=== PATIENT | male | born 1970 | race Caucasian/White ===

== ENCOUNTER 2018-08-20 08:15 | Outpatient (CLI) | payer OTHER, SELFPAY ==
[2018-08-20 11:19] LABS: HGB 14.8 g/dL (13.5-17.5); Mean Corp. HGB Concentration 32.9 g/dL (32.0-36.0); Mean Corpuscular Hemoglobin 31.6 pg (27.0-33.0); Mean Corpuscular Volume 96.2 fL (80-95); Mean Platelet Volume 11.2 fL (8.0-11.0); Platelet Count 171 x1000/uL (130-400); RBC 4.68 m/cumm (4.50-6.00); RBC Distribution Width 13.7 % (11.8-14.1); White Blood Cell Count 6.16 k/cumm (4.4-10.8)
[2018-08-20 11:35] LABS: ALT 75 U/L (12-78); AST 44 U/L (15-37); Albumin 3.8 g/dL (3.4-5.0); Alkaline Phosphatase 57 U/L (46-116); Anion Gap 8.6 mmol/L (3-11); BUN 13 mg/dL (7-18); Bilirubin, Total 0.8 mg/dL (0.2-1.0); CO2 28.4 mmol/L (21.0-32.0); CREATININE 1.07 mg/dL (0.70-1.30); Calcium 8.9 mg/dL (8.5-10.1); Chloride 103 mmol/L (98-107); Cholesterol 188 mg/dL (50-200); Glucose 116 mg/dL (70-100); HDL Cholesterol 47 mg/dL (40-60); LDL CHOLESTEROL 130 mg/dL (<100); Potassium 4.6 mmol/L (3.5-5.1); Sodium 140 mmol/L (136-145); Total Protein 7.3 g/dL (6.4-8.2); Triglyceride 123 mg/dL (30-150)
== END 2018-08-20 08:35 ==
PROVIDERS: PCP Family Medicine; Visit Provider Family Medicine
DX: I10 Essential (primary) hypertension (principal); E78.5 Hyperlipidemia, unspecified; Z83.3 Family history of diabetes mellitus
CPT/HCPCS: 36415; 80053; 80061; 83721; 85027; 83036

== ENCOUNTER 2018-12-03 11:05 | Outpatient (CLI) | payer OTHER, SELFPAY ==
--- NOTE | 2018-12-03 10:08 | DI.RAD_ITS ---
SYMPTOM/DIAGNOSIS: PAIN, CHRONIC LT HIP PAIN M25.552 LEFT HIP: 12/03/18 Three views were obtained. There appears to be mild loss of cartilaginous joint space of the left hip superiorly. Moderate hypertrophic spurring of both acetabula noted. Femoral heads appear intact. CONCLUSION: Hip DJD, left greater than right.
== END 2018-12-03 11:25 ==
PROVIDERS: PCP Family Medicine; Visit Provider Family Medicine
DX: M25.552 Pain in left hip (principal); M16.12 Unilateral primary osteoarthritis, left hip; G89.29 Other chronic pain
CPT/HCPCS: 73502

== ENCOUNTER 2019-03-04 09:41 | Outpatient (CLI) | payer OTHER, SELFPAY ==
[2019-03-04 11:04] LABS: Abs Immature Grans 0.03 k/cumm (0.0-0.09); Absolute Basophil Count 0.04 k/cumm (0.0-0.2); Absolute Eosinophil Count 0.19 k/cumm (0.0-0.7); Absolute Lymphocyte Count 1.48 k/cumm (1.2-3.4); Absolute Monocyte Count 0.48 k/cumm (0.11-0.7); Absolute Neutrophil Count 4.15 k/cumm (1.2-6.7); Basophils % 0.6; HCT 45.8 % (40.0-50.0); Immature Grans % 0.5; Lymphocytes % 23.2; Mean Corp. HGB Concentration 32.8 g/dL (32.0-36.0); Mean Corpuscular Hemoglobin 31.1 pg (27.0-33.0); Mean Platelet Volume 11.5 fL (8.0-11.0); Monocytes % 7.5; Neutrophils % 65.2; Platelet Count 167 x1000/uL (130-400); RBC 4.82 m/cumm (4.50-6.00); RBC Distribution Width 14.3 % (11.8-14.1); White Blood Cell Count 6.37 k/cumm (4.4-10.8)
[2019-03-04 11:18] LABS: ALT 86 U/L (12-78); AST 48 U/L (15-37); Albumin 3.7 g/dL (3.4-5.0); Alkaline Phosphatase 69 U/L (46-116); Anion Gap 11.8 mmol/L (3-11); BUN 13 mg/dL (7-18); Bilirubin, Total 0.8 mg/dL (0.2-1.0); CO2 24.2 mmol/L (21.0-32.0); Calcium 8.9 mg/dL (8.5-10.1); Chloride 105 mmol/L (98-107); Glucose 120 mg/dL (70-100); Potassium 4.3 mmol/L (3.5-5.1); Sodium 141 mmol/L (136-145); Total Protein 7.3 g/dL (6.4-8.2)
[2019-03-08 19:03] LABS: EBV DNA Detect/Quant, P Undetected IU/mL (Undetected)
== END 2019-03-04 10:01 ==
PROVIDERS: PCP Family Medicine; Visit Provider Nurse Practitioner Family
DX: R53.83 Other fatigue (principal); Z20.828 Contact with and (suspected) exposure to other viral communicable diseases
CPT/HCPCS: 36415; 80053; 87799; 85025

== ENCOUNTER 2019-06-15 17:34 | Emergency (ER) | payer OTHER, SELFPAY ==
[2019-06-15] VITALS (60 sets, daily range): BP systolic 93–169; BP diastolic 49–139; PULSE 72–96; RESP 11–31; TEMP 36.7; O2SAT 93–97
--- NOTE | 2019-06-15 17:56 | ED.GENADUL_ITS ---
Discharge Plan Disposition Patient Disposition: [facility] Condition: Stable Discharge Details Chief Complaint: Chest Pain Clinical Impression: Non-ST elevation MO (NSTEMI) Primary Care Provider: Carlos Victoria ED Provider: Kedar Mueller Home Meds and New Rx's Prescriptions: No Action omega-3 fatty acids [Fish Oil Concentrate] 1,000 mg capsule 1,000 mg PO DAILY RF: 0 hydrochlorothiazide 25 mg tablet 12.5 mg PO DAILY Qty: 45 RF: 3 nystatin 15 GM cream 1 gm Topical DAILY PRNQty: 1 RF: 1 pantoprazole 20 MG tablet,delayed release (DR/EC) 40 mg PO DAILY Qty: 180 RF: 3 fluticasone propionate 16 GM spray,suspension 50 mcg NS DAILY Qty: 3 RF: 4 metronidazole [Metrogel] 60 GM gel 1 [place] Topical DAILY Qty: 3 RF: 4 valsartan 160 mg tablet 160 mg PO DAILY Qty: 90 RF: 3 multivitamin 1 EACH capsule 1 tab PO DAILY RF: 0 Discharge Data Discharge Date/Time-TO BE ENTERED AT DEPARTURE: 06/16/19 13:17 Medical Decision Making <Kedar Mueller MD - Last Filed: 06/16/19 11:53> 48 yo male with hx of hld, htn, former smoker comes in with left sided chest pain in mid chest in mid clavicular line. He states it started yesterday afternoon and comes and goes and has no pain now. He states it hurts more with deep breaths and also with exertion, no radiation of pain, no diaphoresis or n/v. No prior cardiac hx. He has pain with palpation to the left anterior chest, no rashes or crepitus. Clear lungs on exam. Could be pleurisy, wells score is low will send dimer. EKG shows lbbb, no sgarbossa criteria for stemi and is pain free now. Will send troponin given his risk factors and monitor pt remains hd stable, labs show troponin of 0.24 and d dimer is above 0.5, asa and plavix as well as heparin ordered for likely nstemi and will obtian cta to eval for pe, will hold on cardiology consult until PE study is finalized pt will be signed out to oncoming provider pending cTA and disposition Differential Diagnosis pleurisy, pe, dissection, acs Imaging Data Radiologic Study: Attestation: I personally reviewed and interpreted this imaging study as follows: Imaging: X-Ray Radiologist's impression: IMPRESSION: There is mild bibasilar linear fibrosis/atelectasis. Slight elevation of the right hemidiaphragm Lab Data Lab results reviewed: Yes I reviewed the patient's lab results. ECG Data Attestation: I personally reviewed and interpreted this ECG (s) as follows: Prior ECG tracings: not available for review Interpretation: sinus rhythm, rate of 80, pr 172, lbbb <Brad Chaudhry MD - Last Filed: 06/16/19 19:59> 23:20 - Patient signed over to me pending CT result and then to arrange for transfer. Patient CTA of the chest is negative for PE or dissection. This scan was carried down through the abdomen. There was some findings of a little bit of peripancreatic stranding. Patient denies having any type of abdominal pain, nausea or vomiting. He is also found to have abdominal wall hernias. These are currently not causing any problems. A repeat EKG and troponin were done. EKG continues to show left bundle branch block. Second troponin came back at 0.26 essentially unchanged. Case is discussed with cardiology at both [facility] and at [facility]. Both facilities are unable to take non-emergency patients. Patient is accepted to both facilities pending discharge. Patient will go to whichever facility has a bed become available first. He has had a couple of episodes of short-lived chest pain here that resolved even prior to getting nitroglycerin. He has remained hemodynamically stable. He continues on a heparin drip. PTT to be checked at 1 AM. We will get troponin at that time as well. Patient will be allowed to eat until breakfast. Will make n.p.o. after breakfast in case cardiology decides to cath once he is transferred. Patient will remain in the ED overnight as there are no beds here. 08:30 -patient without any events overnight. Repeat troponin this morning remains flat. Heparin continues and is adjusted according to protocol. Patient signed over to Dr. Mueller pending callback from either [facility] or [facility]. Lab Data Lab results reviewed: Yes I reviewed the patient's lab results. ECG Data Attestation: I personally reviewed and interpreted this ECG (s) as follows: Interpretation: Sinus rhythm at a rate of 87. Continues with left bundle branch block. No change from previous done earlier today. HPI <Kedar Mueller MD - Last Filed: 06/16/19 11:53> General Mode of arrival: ambulatory . Date/Time Provider Initiated Documentation: 06/15/19 17:38 . Limitations to Documentation: no limitations . Information obtained by: patient . History of Present Illness 48 year old M presents to the emergency department with the chief complaint of chest pain, described as mild, Quality is described as stabbing, and is localized to the chest. Patient reports no radiation. Patient started experiencing this day(s) (1) and it has been intermittent. No relieving factors improve symptom(s), No exacerbating factors reported . Patient did receive the following treatments prior to arrival, none Related Data Home Medications Medication Instructions Recorded Confirmed nystatin 1 gm TOPICAL DAILY PRN #1 tube 01/10/15 06/15/19 multivitamin 1 tab PO DAILY 04/12/18 06/15/19 fluticasone propionate 50 mcg NS DAILY #3 bottle 06/01/18 06/15/19 metronidazole [Metrogel 1%] 1 [place] TOPICAL DAILY #3 script 06/01/18 06/15/19 pantoprazole 40 mg PO DAILY #180 tab-cap 06/01/18 06/15/19 omega-3 fatty acids 1,000 mg 1,000 mg PO DAILY 10/19/18 06/15/19 capsule valsartan 160 mg tablet 160 mg PO DAILY #90 tab 12/27/18 06/15/19 hydrochlorothiazide 25 mg tablet 12.5 mg PO DAILY #45 tab 04/27/19 06/15/19 Previous Rx's Medication Instructions Recorded fluticasone propionate 50 mcg NS DAILY #3 bottle 06/01/18 metronidazole [Metrogel 1%] 1 [place] TOPICAL DAILY #3 script 06/01/18 pantoprazole 40 mg PO DAILY #180 tab-cap 06/01/18 valsartan 160 mg tablet 160 mg PO DAILY #90 tab 12/27/18 hydrochlorothiazide 25 mg tablet 12.5 mg PO DAILY #45 tab 04/27/19 Allergies Allergy/AdvReac Type Severity Reaction Status Date / Time lisinopril AdvReac Mild cough Verified 06/15/19 18:12 General Stated Complaint: Chest Pain MARCO ANTONIO: 2 Review of Systems <Kedar Mueller MD - Last Filed: 06/16/19 11:53> Review of Systems All systems reviewed & are unremarkable except as noted in HPI and below Constitutional Denies chills, Denies fever(s) and Denies weakness Cardiovascular Denies dyspnea Respiratory Denies dyspnea Gastrointestinal Denies abdominal pain, Denies nausea and Denies vomiting Neurologic Denies weakness PFSH <Kedar Mueller MD - Last Filed: 06/16/19 11:53> Medical History (Updated 05/20/19 @ 15:28 by Melissa Peña) Depression (emotion) GERD (gastroesophageal reflux disease) Hiatal hernia Hypertension Obesity, Class III, BMI 40-49.9 (morbid obesity) Surgical History (Updated 04/27/19 @ 12:59 by Hank Moeller) Colonoscopy - MAC (04/12/18) HERNIA REPAIR Tonsillectomy (~1999) Family History Mother No problems noted. Father Diabetes Essential hypertension Stroke Maternal Grandfather Heart disease Alcohol abuse Paternal Grandfather Alcohol abuse Heart disease Maternal Grandmother Diabetes Heart disease Paternal Grandmother Diabetes Essential hypertension Heart disease Brother Anxiety Daughter Anxiety Social History (Updated 09/21/18 @ 11:11 by Ariadna Luu) Smoking/Tobacco Use Status: Former Tobacco Use Quit Date: 11/02/04 Second Hand Exposure: Yes Alcohol Intake: current Alcohol Intake frequency: 0-2 drinks per day Alcohol type: hard liquor Drug use: Never Substance use type: former substance user and marijuana Household members: other Details: 5 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 Pets and animals: Yes Pets and animals: cat(s) What type of physical activity do you participate in: none Frequency: does not exercise Silke/Moravian: Baptist Special silke needs: No Do you feel safe at home: Yes Do you feel safe in your relationship?: Yes Exam <Kedar Mueller MD - Last Filed: 06/16/19 11:53> Const General: no acute distress Orientation: alert HENMT Head: normal to inspection Ears: external ears normal General nose exam: external nose normal Mouth: moist mucous membranes Eyes General: appearance normal, both eyes and all related structures Neck Neck: normal visual inspection Resp Effort & Inspection: normal respiratory effort and able to speak in complete sentences Cardio Rate: regular rate Skin General skin exam: no rashes or lesions noted Neuro General: alert and oriented x3 Extrem General: normal to inspection Psych Mental Status: mental status grossly normal Course <Kedar Mueller MD - Last Filed: 06/16/19 11:53> Vital Signs Temperature 36.7 C 06/15/19 17:41 Pulse 85 06/15/19 17:41 Respiratory Rate 16 06/15/19 17:41 Blood Pressure 144/83 H 06/15/19 17:41 Pulse Oximetry 96 06/15/19 17:41 Temperature 36.7 C 06/15/19 17:41 Temperature Source Skin 06/15/19 17:41 Pulse 85 06/15/19 17:41 Respiratory Rate 16 06/15/19 17:41 Blood Pressure 144/83 H 06/15/19 17:41 Pulse Oximetry 96 06/15/19 17:41 Oxygen Delivery Method Room Air 06/15/19 17:41 Oxygen Flow Rate 0 06/15/19 17:41 Pain Level 0 06/15/19 17:41 Sign Out <Kedar Mueller MD - Last Filed: 06/16/19 11:53> Sign Out Data: Sign Out Comment: follow up on cta results, disposition Last updated by Kedar Mueller MD at 06/15/19 19:44 Sign Out Comment: pending call back from [facility] or [facility] for transfer Last updated by Brda Chaudhry MD at 06/16/19 08:29
[2019-06-15] MEDS: Normal Saline Flush 10 ML SYR IVP ×2 (18:05→19:59)
[2019-06-15 18:15] LABS: Abs Immature Grans 0.02 k/cumm (0.0-0.09); Absolute Basophil Count 0.03 k/cumm (0.0-0.2); Absolute Eosinophil Count 0.18 k/cumm (0.0-0.7); Absolute Lymphocyte Count 1.65 k/cumm (1.2-3.4); Absolute Monocyte Count 0.55 k/cumm (0.11-0.7); Absolute Neutrophil Count 4.61 k/cumm (1.2-6.7); Basophils % 0.4; Eosinophils % 2.6; HCT 42.2 % (40.0-50.0); HGB 13.9 g/dL (13.5-17.5); Immature Grans % 0.3; Lymphocytes % 23.4; Mean Corp. HGB Concentration 32.9 g/dL (32.0-36.0); Mean Corpuscular Hemoglobin 31.4 pg (27.0-33.0); Mean Corpuscular Volume 95.3 fL (80-95); Mean Platelet Volume 11.1 fL (8.0-11.0); Monocytes % 7.8; Neutrophils % 65.5; Platelet Count 173 x1000/uL (130-400); RBC 4.43 m/cumm (4.50-6.00); RBC Distribution Width 14.1 % (11.8-14.1); White Blood Cell Count 7.04 k/cumm (4.4-10.8)
--- NOTE | 2019-06-15 18:19 | DI.RAD_ITS ---
SYMPTOM/DIAGNOSIS: CHEST PAIN, ELEVATED D DIMER PA AND LATERAL CHEST: 06/15 The heart is not enlarged. There are minimal linear radiodensities in the lung base less prominent than on previous examination of 2008. No acute consolidation or pleural effusion. Cardiac size is within normal limits. CONCLUSION: Negative examination of the chest.
[2019-06-15 18:31] LABS: PTT Activated 22.4 sec (21.0-31.4); Prothrombin Time 10.1 sec (9.3-11.0)
--- NOTE | 2019-06-15 18:34 | DI.VRAD_ITS ---
EXAM: XR Chest, 2 Views EXAM DATE/TIME: 06/15/2019 5:58 PM CLINICAL HISTORY: 48 years old, male; Chest pain TECHNIQUE: Imaging protocol: XR of the chest, 2 views. COMPARISON: No relevant prior studies available. FINDINGS: Lungs: There is mild bibasilar linear fibrosis/atelectasis. Pleural space: Unremarkable. No pleural effusion. No pneumothorax. Heart/Mediastinum: Unremarkable. No cardiomegaly. Diaphragm: Slight elevation of the right hemidiaphragm Bones/joints: Unremarkable. IMPRESSION: There is mild bibasilar linear fibrosis/atelectasis. Slight elevation of the right hemidiaphragm Dictated and Authenticated by: Davian Bingham MD. Ordering:OSWALDO Thacker MD
[2019-06-15 18:37] LABS: ALT 66 U/L (12-78); AST 37 U/L (15-37); Albumin 3.5 g/dL (3.4-5.0); Alkaline Phosphatase 68 U/L (46-116); Anion Gap 11.5 mmol/L (3-11); BUN 15 mg/dL (7-18); Bilirubin, Total 0.6 mg/dL (0.2-1.0); CO2 25.5 mmol/L (21.0-32.0); CREATININE 1.16 mg/dL (0.70-1.30); Calcium 8.5 mg/dL (8.5-10.1); Chloride 104 mmol/L (98-107); Glucose 158 mg/dL (70-100); Magnesium 1.7 mg/dL (1.8-2.4); NT-proBNP 91 pg/mL; Potassium 3.7 mmol/L (3.5-5.1); Sodium 141 mmol/L (136-145); Total Protein 7.3 g/dL (6.4-8.2)
[2019-06-15 18:39] LABS: Troponin I 0.24 ng/mL (0.00-0.06)
[2019-06-15] MEDS: Clopidogrel 300 MG TAB PO (18:50)
[2019-06-15] MEDS: Aspirin 81 MG CHEW 324 MG CH (18:50)
[2019-06-15 18:52] LABS: D-Dimer 568 ng/mlFEU (<500)
--- NOTE | 2019-06-15 19:56 | DI.CT_ITS ---
SYMPTOM/DIAGNOSIS: CHEST PAIN, ELEVATED D.DIMER CT ANGIOGRAPHY CHEST AND ABDOMINAL AND PELVIC CT 06/15 CT angiography was performed with multi slice acquisition and multi planar and 3D reconstruction. CT examination of the chest was performed with a bolus infusion of 100 cc Omnipaque 350 followed by venous phase imaging of the abdomen and pelvis. The lungs are clear with minimal linear scarring in the lung bases. Tracheobronchial tree appears intact. No evidence of pulmonary embolic disease. No thoracic aortic aneurysm or dissection. No mediastinal or hilar adenopathy. Note is made of hepatic steatosis and mild hepatomegaly with no focal hepatic lesion identified. Gallbladder and bile ducts are CT normal. Spleen appears normal. Pancreas appears intact. Adrenals and kidneys are unremarkable. No evidence of urinary tract calcification or obstruction. Abdominal aorta is of normal diameter and no major vascular abnormality seen. No abdominal or pelvic adenopathy. Appendix is normal. No evidence of diverticulitis or bowel obstruction. There is a small fat containing umbilical hernia. There is a ventral hernia just superior to the umbilicus with omental fat contents measuring up to about 3.8 cm in diameter. There is mild increased fat attenuation associated with the omental fat raising the possibility of inflammation. Correlation requested regarding any symptoms referable to this site. CONCLUSION: 1. Hepatic steatosis and hepatomegaly, question mild splenomegaly 2. Ventral hernia superior to the umbilicus with omental fat contents which show increased fat attenuation, please correlate clinically regarding any possibility of inflammation at this site.
[2019-06-15] MEDS: Omnipaque 350 MG/ML 50 ML BTL IJ (19:58)
[2019-06-15] MEDS: Omnipaque 350 MG/ML 100 ML BTL IJ (19:58)
--- NOTE | 2019-06-15 20:58 | DI.VRAD_ITS ---
EXAM: CT Angiography Chest With Contrast EXAM DATE/TIME: 06/15/2019 6:54 PM CLINICAL HISTORY: 48 years old, male; Chest pain; Other: Elevated d-dimer TECHNIQUE: Imaging protocol: Axial computed tomographic angiography images of the chest with intravenous contrast using CT angiography protocol. Coronal and sagittal reformatted images were created and reviewed. 3D rendering: MIP reconstructed images were created and reviewed. Contrast material: OMNIPAQUE 350;Contrast volume: 125 ml;Contrast route: IV LAC; COMPARISON: CR XR CHEST 2V PA LATERAL 06/15/2019 6:18 PM FINDINGS: Pulmonary arteries: There are no intraluminal filling defects to suggest acute pulmonary embolus. Aorta: Aorta demonstrates mild atherosclerotic calcification. Lungs: There is mild bibasilar atelectasis. Pleural space: Unremarkable. No pneumothorax. No pleural effusion. Heart: Unremarkable. No cardiomegaly. No pericardial effusion. Mediastinum: There is a small hiatal hernia. Lymph nodes: Unremarkable. No enlarged lymph nodes. Bones/joints: Unremarkable. No acute fracture. Soft tissues: Unremarkable. IMPRESSION: There are no intraluminal filling defects to suggest acute pulmonary embolus. EXAM: CT Angiography Abdomen With Contrast EXAM DATE/TIME: 06/15/2019 6:54 PM CLINICAL HISTORY: 48 years old, male; Chest pain; Other: Elevated d-dimer TECHNIQUE: Imaging protocol: Axial computed tomographic angiography images of the abdomen with intravenous contrast material. Coronal and sagittal reformatted images were created and reviewed. 3D rendering: MIP reconstructed images were created and reviewed. Contrast material: OMNIPAQUE 350;Contrast volume: 125 ml;Contrast route: IV LAC; COMPARISON: CR XR CHEST 2V PA LATERAL 06/15/2019 6:18 PM FINDINGS: VASCULATURE: The abdomen was scanned in venous phase limiting evaluation. Aorta: Atherosclerotic calcifications of the aorta and iliac arteries without evidence of aneurysm. Celiac trunk and mesenteric arteries: No occlusion or significant stenosis. Renal arteries: No occlusion or significant stenosis. ABDOMEN: Liver: The liver is enlarged. There is a diffuse decrease in hepatic parenchymal density, consistent with fatty infiltration. Gallbladder and bile ducts: The gallbladder is unremarkable. Pancreas: Mild haziness of the peripancreatic mesenteric fat surrounding the head and uncinate process of the pancreas. Spleen: Mild splenomegaly. Adrenals: No adrenal mass is present. Kidneys and ureters: The kidneys excrete contrast normally without evidence of solid renal mass or hydronephrosis. Stomach and bowel: There is scattered colonic diverticulosis without evidence of diverticulitis. Intraperitoneal space: Unremarkable. No free air. No significant fluid collection. Bones/joints: Unremarkable. No acute fracture. No dislocation. Soft tissues: There is small fat-containing left inguinal hernia. There is a small fat-containing umbilical hernia. Just superior to this is an anterior abdominal wall hernia measuring 3.8 x 3.3 cm. This is omental fat within the left there is a thickened wall present with some mild haziness of the adjacent anterior abdominal wall fat. Lymph nodes: Unremarkable. No enlarged lymph nodes. IMPRESSION: 1. Small 3.8 x 3 point centimeter central anterior abdominal wall hernia just superior to a small fat-containing umbilical hernia. The hernia sac contains omental fat and has a thickened wall with juliano-hernia subcutaneous haziness that may represent a mild inflammatory component. Please correlate with patient's clinical exam. 2. Significant fatty changes in the liver with hepatomegaly. Please correlate with the patient's clinical laboratory findings. 3. Mild splenomegaly. 4. Mild peripancreatic haziness of the fat about the head and uncinate process of the pancreas that can be seen with pancreatitis. Recommend correlation with laboratory findings. Dictated and Authenticated by: Davian Bingham MD. Ordering:OSWALDO Thacker MD
[2019-06-15 21:45] LABS: Troponin I 0.26 ng/mL (0.00-0.06)
[2019-06-16] VITALS (98 sets, daily range): BP systolic 105–146; BP diastolic 50–117; PULSE 46–90; RESP 12–30; TEMP 36.7; O2SAT 86–96
[2019-06-16 01:30] LABS: PTT Activated 24.9 sec (21.0-31.4)
[2019-06-16 01:38] LABS: Troponin I 0.24 ng/mL (0.00-0.06)
[2019-06-16 07:11] LABS: HCT 41.6 % (40.0-50.0); HGB 13.7 g/dL (13.5-17.5); Mean Corp. HGB Concentration 32.9 g/dL (32.0-36.0); Mean Corpuscular Hemoglobin 31.7 pg (27.0-33.0); Mean Corpuscular Volume 96.3 fL (80-95); Platelet Count 140 x1000/uL (130-400); RBC 4.32 m/cumm (4.50-6.00); RBC Distribution Width 14.2 % (11.8-14.1); White Blood Cell Count 5.64 k/cumm (4.4-10.8)
[2019-06-16 07:26] LABS: PTT Activated 34.1 sec (21.0-31.4)
[2019-06-16 07:34] LABS: Troponin I 0.27 ng/mL (0.00-0.06)
[2019-06-16] MEDS: Valsartan 80 MG TAB 160 MG PO (09:00)
[2019-06-16] MEDS: hydroCHLOROthiazide 12.5 MG TAB PO (09:01)
[2019-06-16 12:39] LABS: PTT Activated 37.5 sec (21.0-31.4)
== END 2019-06-16 13:17 | disposition short-term general hospital (02) ==
PROVIDERS: Emergency Medicine; Emergency Provider Emergency Medicine; PCP Family Medicine
DX: I21.4 Non-ST elevation (NSTEMI) myocardial infarction (principal); R79.1 Abnormal coagulation profile; I10 Essential (primary) hypertension; Z87.891 Personal history of nicotine dependence; Z75.1 Person awaiting admission to adequate facility elsewhere
CPT/HCPCS: 36415; 71275; 74177; 80053; 85027; 93005; 96365; 96366; 99285; 71046; 83735; 83880; 84484; 85025; 85379; 85610; 85730; 93010; J3490; Q9967

== ENCOUNTER 2019-07-14 00:52 | Outpatient (CLI) | payer OTHER, SELFPAY ==
--- NOTE | 2019-07-14 07:36 | DI.RAD_ITS ---
SYMPTOMS/DIAGNOSIS: LEFT HIP IMPINGEMENT SYNDROME LEFT HIP INJECTION: Fluoroscopy Time: 20.6 sec Fluoroscopy was utilized by Dr. aRy during left hip injection. Hard copy shows intraarticular injection of the left hip.
--- NOTE | 2019-07-14 13:30 | W.PROCNOTE ---
Date of service: 07/14/19 Time of Service: 13:30 Procedure Note Date of procedure: 07/14/19 Procedure: Left Hip Injection with Fluoroscopic Guidance Surgeon/Proceduralist/Physician: Joselo Ray Procedure Diagnosis: Left Hip Osteoarthritis Procedure Indications: Benjy has had persistent pain of the LEFT hip and groin. Noninvasive measures have been tried. To serve as both diagnostic and therapeutic, an injection under fluoroscopy was recommended. I had discussed the risks of the procedure and the patient elected to proceed. Procedure Description: Benjy was greeted in the flouroscopy room. The correct side was identified and the consent was reviewed with the patient and signed. The patient was then placed in the supine position on the fluoroscopy table. The LEFT hip was then prepped with Chloraprep. The anterolateral injection starting point was identiifed by bony landmarks and fluoroscopy. The skin and soft tissue in the tract of the injection was anesthetized with 1% Lidocaine. A spinal needle was then inserted deep into the hip joint at the level of the lateral femoral neck under fluoroscopic guidance. A small amount of Omnipaque solution was injected to confirm intraarticular placement. Once confirmed, the hip was injected with 6cc of 0.5% Bupivicaine and 80mg of Depo-Medrol. A bandaid was placed on the injection site. The patient tolerated the procedure well and noted improvement in pre-injection pain.
[2019-07-14] MEDS: Bupivacaine 0.5% Pres-Free 10 ML VIAL 50 ML IJ (15:05)
[2019-07-14] MEDS: methylPREDNISolone ACETATE 80 MG/ML VIAL IM (15:07)
[2019-07-14] MEDS: Lidocaine 1% Pres-Free 5 ML VIAL IJ (15:09)
== END 2019-07-14 01:12 ==
PROVIDERS: PCP Family Medicine; Visit Provider Student in an Organized Health Care Education/Training Program
DX: M25.852 Other specified joint disorders, left hip (principal); M25.552 Pain in left hip
CPT/HCPCS: 20610; 77002; J1040

== ENCOUNTER 2019-07-26 12:52 | Outpatient (CLI) | payer OTHER, SELFPAY ==
[2019-07-26 14:11] LABS: ALT 67 U/L (16-63); AST 35 U/L (15-37); Albumin 3.8 g/dL (3.4-5.0); Alkaline Phosphatase 80 U/L (46-116); Anion Gap 11.2 mmol/L (3-11); BUN 15 mg/dL (7-18); Bilirubin, Total 1.6 mg/dL (0.2-1.0); CO2 25.8 mmol/L (21.0-32.0); CREATININE 1.19 mg/dL (0.70-1.30); Calcium 8.6 mg/dL (8.5-10.1); Calculated LDL 35 mg/dL; Chloride 104 mmol/L (98-107); Cholesterol 108 mg/dL (50-200); Glucose 120 mg/dL (70-100); HDL Cholesterol 40 mg/dL (40-60); Sodium 141 mmol/L (136-145); Total Protein 7.6 g/dL (6.4-8.2); Triglyceride 166 mg/dL (30-150)
[2019-07-26 15:06] LABS: Hemoglobin A1C 6.2 % (4.5-6.2)
== END 2019-07-26 13:12 ==
PROVIDERS: PCP Family Medicine; Visit Provider Internal Medicine Cardiovascular Disease
DX: R73.9 Hyperglycemia, unspecified (principal); R94.5 Abnormal results of liver function studies; E78.5 Hyperlipidemia, unspecified; I42.8 Other cardiomyopathies; I21.4 Non-ST elevation (NSTEMI) myocardial infarction
CPT/HCPCS: 36415; 80053; 80061; 83036

== ENCOUNTER 2020-04-20 04:13 | Outpatient (CLI) | payer OTHER, SELFPAY ==
[2020-04-20 09:17] LABS: HCT 41.9 % (40.0-50.0); HGB 13.6 g/dL (13.5-17.5); Mean Corp. HGB Concentration 32.5 g/dL (32.0-36.0); Mean Corpuscular Hemoglobin 31.3 pg (27.0-33.0); Mean Corpuscular Volume 96.5 fL (80-95); Mean Platelet Volume 11.2 fL (8.0-11.0); Platelet Count 191 x1000/uL (130-400); RBC 4.34 m/cumm (4.50-6.00); RBC Distribution Width 14.4 % (11.8-14.1); White Blood Cell Count 7.15 k/cumm (4.4-10.8)
[2020-04-20 11:36] LABS: Hemoglobin A1C 6.3 % (3.8-5.6)
[2020-04-20 12:22] LABS: ALT 80 U/L (16-63); AST 56 U/L (15-37); Albumin 3.9 g/dL (3.4-5.0); Alkaline Phosphatase 76 U/L (46-116); Anion Gap 13.2 mmol/L (3-11); BUN 17 mg/dL (7-18); Bilirubin, Total 0.8 mg/dL (0.2-1.0); CO2 24.8 mmol/L (21.0-32.0); CREATININE 1.14 mg/dL (0.70-1.30); Calcium 8.9 mg/dL (8.5-10.1); Calculated LDL 75 mg/dL (<100); Chloride 104 mmol/L (98-107); Cholesterol 144 mg/dL (<200); Glucose 130 mg/dL (74-106); HDL Cholesterol 41 mg/dL (40-60); Potassium 4.2 mmol/L (3.5-5.1); Sodium 142 mmol/L (136-145); Total Protein 7.6 g/dL (6.4-8.2); Triglyceride 140 mg/dL (<150)
== END 2020-04-20 04:33 ==
PROVIDERS: PCP Family Medicine; Visit Provider Family Medicine
DX: E78.5 Hyperlipidemia, unspecified (principal); R73.01 Impaired fasting glucose; I10 Essential (primary) hypertension; I42.9 Cardiomyopathy, unspecified
CPT/HCPCS: 36415; 80053; 80061; 85027; 83036

== ENCOUNTER 2020-07-10 04:50 | Outpatient (CLI) | payer OTHER, SELFPAY ==
[2020-07-10 13:45] LABS: Anion Gap 8.6 mmol/L (3-11); BUN 15 mg/dL (7-18); CO2 26.4 mmol/L (21.0-32.0); CREATININE 1.04 mg/dL (0.70-1.30); Chloride 102 mmol/L (98-107); Glucose 158 mg/dL (74-106); Magnesium 1.5 mg/dL (1.8-2.4); Potassium 4.2 mmol/L (3.5-5.1); Sodium 137 mmol/L (136-145)
== END 2020-07-10 05:10 ==
PROVIDERS: PCP Family Medicine; Visit Provider Internal Medicine Cardiovascular Disease
DX: I21.4 Non-ST elevation (NSTEMI) myocardial infarction (principal); I42.8 Other cardiomyopathies
CPT/HCPCS: 36415; 80048; 83735

== ENCOUNTER 2020-08-22 10:48 | Outpatient (CLI) | payer OTHER, SELFPAY ==
[2020-08-22 12:48] LABS: Abs Immature Grans 0.03 10^3/uL (0.0-0.06); Absolute Basophil Count 0.06 10^3/uL (0.0-0.2); Absolute Eosinophil Count 0.19 10^3/uL (0.0-0.7); Absolute Lymphocyte Count 1.68 10^3/uL (1.2-3.4); Absolute Monocyte Count 0.68 10^3/uL (0.1-0.8); Absolute Neutrophil Count 6.04 10^3/uL (1.2-6.7); Basophils % 0.7; Eosinophils % 2.2; HCT 41.8 % (40.0-50.0); HGB 13.5 g/dL (13.5-17.5); Immature Grans % 0.3; Lymphocytes % 19.4; MCH 31.7 pg (27.0-33.0); MCHC 32.3 % (32.0-36.0); MCV 98.1 fL (80-95); MPV 11.2 fL (8.0-11.0); Monocytes % 7.8; Neutrophils % 69.6; Nucleated RBC 0 %; Platelet Count 195 10^3/uL (130-400); RBC 4.26 10^6/uL (4.36-5.78); RDW 14.1 % (11.8-14.1); RDW-SD 49.9 fL; WBC 8.68 10^3/uL (4.4-10.8)
[2020-08-22 13:13] LABS: ALT 98 U/L (16-63); AST 55 U/L (15-37); Albumin 3.8 g/dL (3.4-5.0); Alkaline Phosphatase 64 U/L (46-116); Anion Gap 7.6 mmol/L (3-11); BUN 17 mg/dL (7-18); Bilirubin, Total 1.2 mg/dL (0.2-1.0); CO2 30.4 mmol/L (21.0-32.0); CREATININE 1.17 mg/dL (0.70-1.30); Calcium 8.9 mg/dL (8.5-10.1); Chloride 102 mmol/L (98-107); Glucose 175 mg/dL (74-106); Magnesium 1.4 mg/dL (1.8-2.4); Potassium 4.3 mmol/L (3.5-5.1); Sodium 140 mmol/L (136-145); Total Protein 7.3 g/dL (6.4-8.2); Uric Acid 10.2 mg/dL (3.5-7.2)
== END 2020-08-22 11:08 ==
PROVIDERS: PCP Family Medicine; Visit Provider Family Medicine
DX: E11.9 Type 2 diabetes mellitus without complications (principal); I10 Essential (primary) hypertension; M10.9 Gout, unspecified
CPT/HCPCS: 36415; 80053; 83735; 84550; 85025

== ENCOUNTER 2020-09-25 08:38 | Outpatient (CLI) | payer OTHER, SELFPAY ==
[2020-09-27 22:54] LABS: Patient Race White; SARS-CoV-2 RNA Undetected (Undetected); SARS-CoV-2 Specimen Source Nasal
== END 2020-09-25 08:58 ==
PROVIDERS: PCP Family Medicine; Visit Provider Family Medicine
DX: R53.83 Other fatigue (principal); R09.89 Other specified symptoms and signs involving the circulatory and respiratory systems
CPT/HCPCS: U0003

== ENCOUNTER 2020-10-02 13:00 | Outpatient (CLI) | payer OTHER, SELFPAY ==
[2020-10-02 13:16] LABS: Abs Immature Grans 0.06 10^3/uL (0.0-0.06); Absolute Basophil Count 0.07 10^3/uL (0.0-0.2); Absolute Eosinophil Count 0.21 10^3/uL (0.0-0.7); Absolute Monocyte Count 0.64 10^3/uL (0.1-0.8); Absolute Neutrophil Count 6.42 10^3/uL (1.2-6.7); Basophils % 0.7; Eosinophils % 2.2; HCT 44.2 % (40.0-50.0); HGB 14.6 g/dL (13.5-17.5); Immature Grans % 0.6; Lymphocytes % 22.1; MCH 31.5 pg (27.0-33.0); MCV 95.5 fL (80-95); MPV 11.3 fL (8.0-11.0); Monocytes % 6.7; Neutrophils % 67.7; Nucleated RBC 0 %; Platelet Count 244 10^3/uL (130-400); RBC 4.63 10^6/uL (4.36-5.78); RDW 13.9 % (11.8-14.1); RDW-SD 48.2 fL
[2020-10-02 13:17] LABS: Bilirubin Negative (Negative); Blood Negative (Negative); Clarity Clear (Clear); Glucose Negative (Negative); Ketones Negative (Negative); Leukocyte Esterase Negative (Negative); Nitrite Negative (Negative); Specific Gravity 1.025 (1.005-1.025); Urobilinogen 0.2 EU/dL (Up TO 0.2)
[2020-10-02 13:25] LABS: Bacteria Few HPF (Negative); C & S Indicated? No; Casts Negative LPF (Negative); Crystals Negative HPF (Negative); Epithelial Cells Moderate HPF (Negative); Mucus Moderate (Negative); RBC 0-2 HPF (0-2); WBC 0-2 HPF (0-5)
[2020-10-02 13:42] LABS: ALT 129 U/L (16-63); AST 89 U/L (15-37); Alkaline Phosphatase 90 U/L (46-116); Anion Gap 12.4 mmol/L (3-11); BUN 16 mg/dL (7-18); Bilirubin, Total 0.8 mg/dL (0.2-1.0); CO2 23.6 mmol/L (21.0-32.0); CREATININE 1.18 mg/dL (0.70-1.30); Calcium 8.9 mg/dL (8.5-10.1); Chloride 103 mmol/L (98-107); Glucose 257 mg/dL (74-106); NT-proBNP 83 pg/mL (<300); Potassium 3.9 mmol/L (3.5-5.1); Sodium 139 mmol/L (136-145); Total Protein 8.4 g/dL (6.4-8.2)
== END 2020-10-02 13:20 ==
PROVIDERS: PCP Family Medicine; Visit Provider Family Medicine
DX: R53.81 Other malaise (principal)
CPT/HCPCS: 36415; 80053; 81003; 81015; 83880; 85025

== ENCOUNTER 2020-10-11 05:47 | Outpatient (CLI) | payer OTHER, SELFPAY ==
--- NOTE | 2020-10-11 11:00 | NS.NUTBLAN_ITS ---
ASSESSMENT: Jeff Scahffer ( 50 y/o M) presents with referral from [facility] for new DM dx, weight management. He is currently on clerk entry level 500 mg metformin XR BID w/ some mild GI issues r/t this new med.He has hx cardiomyopathy issues and sees pinsetter mechanic helper, has elevated LFT's r/t NAFLD. He repoorts I jus don't feel good. He reports fatigue, lethargy and SOB. He was breathing heavily on the walk from the lobby to this office approx 100m. He does the cooking at home. His runs a day care in their home and he reports it's difficult to prepare foods as the kitchen is hard to access at times. 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 Current weight is 171.0 kg with BMI indicating obesity. IBW is 84kg. Labs reveal BG 257 mg/dl (H) on 10/02/20. A1c was 6.8 on 07/25/20. Finger stick at this appointment revealed 266mg/dl.~ 1.5 hours postprandial. Documentation also showed hx dehydration. He would benefit from basic DM edu and needs a glucometer along with instructions for use. He appears motivated for lifestyle change and is somewhat concerned about adhering to a healthier diet during this holiday season. He reports that he is interested in weight loss and that he prefers one on one over group support. INTERVENTION: Educated Sarbjit on the complications r/t long-term elevated BG levels. Reviewed desired BG target range. Recommended 1 week food record with finger sticks 4X/to track trends r/t behavior, physical activity and meals. Reviewed basics of CHO counting. Recommended <60g CHO per meal period. Provided literature on both aformentioned. Reviwed some the foods he eats regularly and explained the concept of Pairing CHO w/ PRO to help w/ BG spikes. Demonstrated glucometer use and provided patient w/ Accu-check Guide- me meter and 10 test strips. Reviewed types of Fats and types of CHO's. Gave recommendations for <10% SFA's and simple CHO's. Demonstrated and recommended carbs and cals phone [place] to help count CHO's. MONITOR/EVAL: Sarbjit will ask PCP for rx for more test strips. He will return for F/U visit on 11/07/20 for further DM edu , BG trend analysis, and weight eval. At that time we will set weight loss goals and establish caloric intake, fluids and macro nutrient %'s. TIME Spent Face to face: 1 hour/4 units
== END 2020-10-11 06:07 ==
PROVIDERS: PCP Family Medicine; Visit Provider Dietitian, Registered
DX: E11.9 Type 2 diabetes mellitus without complications (principal); E66.9 Obesity, unspecified; K76.0 Fatty (change of) liver, not elsewhere classified; Z79.84 Long term (current) use of oral hypoglycemic drugs; Z71.3 Dietary counseling and surveillance
CPT/HCPCS: 97802

== ENCOUNTER 2020-11-07 05:32 | Outpatient (CLI) | payer OTHER, SELFPAY ==
--- NOTE | 2020-11-07 15:30 | NS.NUTBLAN_ITS ---
ASSESSMENT: Sarbjit has returned for F/U to review DM edu from last visit as he was a bit overwhelmed at the time r/t new DM dx, upcoming holidays, comorbidities. He kept an excellent written record of his BG levels at fasting and 1.5 hrs postprandial X3 per recommendations from previous appointment.. He reports having -5.0lbg weight loss and appears hopeful and willing to do the work necessary to make healthy lifestyle changes. He is using fit bit device to track his calories and CHO's. He admitted having some difficulty staying on track during the holiday. Overall he has been vigilant in his self management. BG's still in the >180's with some good In Range readings mixed in r/t diet. He has a knee issue which he is seeing a specialist for . He says this hampers his physical activity. This RD encouraged him to take it slow and just do Short walks. He may benefit from a GLP-1 with the Metformin to help control BG. He is aware of desired ranges and was able to track his CHO's very well since last appointment. INTERVENTION: Recommended 2850 k/clifford /day to start weight loss program. He will need to reduce caloric intake further eventually but this will be a good start toward a goal of 250lbs which seems reasonable to start the process. We discussed the possibility of CGM to help with time in range, glycemic variability and behaviors r/t BG fluctuations.We reviewed what actions he could take for high BG levels including moderate physical activityper MD approval, fluids, and controlling CHO intake. PLAN: [facility] will call PCP for FreeStyle Edvin 2 rx and arrange for appointment with this RD for education to place the device. Noted: Next appointment scheduled for 11/20/20.
== END 2020-11-07 05:52 ==
PROVIDERS: PCP Family Medicine; Visit Provider Dietitian, Registered
DX: E11.9 Type 2 diabetes mellitus without complications (principal); E66.9 Obesity, unspecified; Z71.3 Dietary counseling and surveillance
CPT/HCPCS: 97803

== ENCOUNTER 2020-11-23 03:07 | Outpatient (CLI) | payer OTHER, SELFPAY ==
--- NOTE | 2020-11-23 10:39 | DI.RAD_ITS ---
EXAM: XR TOE RT GREAT CLINICAL HISTORY: great toe pain, intermittent swelling,M79.674. TECHNIQUE: 2D digital imaging was performed. COMPARISON: No exams were available for comparison FINDINGS: BONES: There is a 3 mm triangular density adjacent to the plantar surface of the distal phalanx of t he great toe. It may represent a fracture fragment. It is of indeterminate acuity. Please correlat e clinically. No other evidence of an acute fracture or dislocation. No bony destructive lesion is seen. JOINTS: No dislocation present. The articular surfaces are well maintained. SOFT TISSUE: No radiopaque foreign bodies are seen in the soft tissues. No soft tissue calcification s are appreciated. IMPRESSION: Triangular density on the plantar surface of the great toe. It may represent of avulsed fracture fra gment. It is of indeterminate acuity. Please correlate clinically. Otherwise no acute abnormality is identified. DATA REPOSITORY: RADIATION DOSE DELIVERED:
== END 2020-11-23 03:27 ==
PROVIDERS: PCP Family Medicine; Visit Provider Physician Assistant
DX: M79.674 Pain in right toe(s) (principal); R93.6 Abnormal findings on diagnostic imaging of limbs; M79.89 Other specified soft tissue disorders
CPT/HCPCS: 73660

== ENCOUNTER 2020-12-19 05:48 | Emergency (ER) | payer OTHER, SELFPAY ==
[2020-12-19 05:55] VITALS: BP 150/90; PULSE 78; RESP 16; TEMP 36.6; O2SAT 95
--- NOTE | 2020-12-19 06:00 | DI.CT_ITS ---
EXAM: CT ABDOMEN PELVIS W CLINICAL HISTORY: middle abdominal pain, ?strangulated hernia. TECHNIQUE: Imaging Protocol: Axial computed tomography images with coronal and sagittal reformatted images were created and reviewed CONTRAST MATERIAL: Intravenous: Omnipaque 100cc Oral: None COMPARISON: CT CT CHEST PE ABD PELVIS W from 06/15/2019 FINDINGS: VISUALIZED LUNG BASES: No nodules nor pleural effusions evident. ABDOMEN: There is no ascites. LIVER: Liver is hypodense-prominent steatosis. There are no discrete focal hepatic lesions identifie d. GALLBLADDER/BILIARY: No obvious gallbladder pathology. CBD is not dilated. PANCREAS: No evidence of pancreatic mass nor dilatation of the pancreatic duct. SPLEEN: Spleen is not enlarged. No obvious intrasplenic lesions. Splenic and portal veins are paten t. ADRENALS: There are no significant adrenal masses. KIDNEYS:No cysts evident. No solid renal masses. No calculi nor hydronephrosis.. ABDOMINAL AORTA: Abdominal aorta is not enlarged and there is no [id number] adenopat hy. ABDOMINAL WALL/GI: There is anterior abdominal wall midline hernia which contains bowel loop. There is small bowel obstruction prox proximal to this with bowel loop diameters measuring up to 3.3 cm. N o free fluid. No free air. PELVIS: GI: No evidence of appendicitis.No evidence of sigmoid diverticulitis. LYMPH NODES: There is no intrapelvic nor inguinal adenopathy. REPRODUCTIVE: Unremarkable URINARY BLADDER: No calculi nor obvious masses evident OSSEOUS: No significant osseous lesions. IMPRESSION: 1. There is a small bowel obstruction related to a supraumbilical ventral midline hernia with incarce ration of the small bowel loop at this level. No perforation or abscess. No free air evident at thi s time. 2. Hepatic steatosis noted. No discrete focal hepatic lesions. Sign rib RADIATION DOSE DELIVERED: 1,878.71mGy.cm Total DLP DATA REPOSITORY: All CT scans at this facility are submitted to the National Radiology Data Registry (NRDR) Dose Index Registry (DIR) with the [employer] (A[employer]). RADIATION OPTIMIZATION: All CT scans at this facility use at least one of these dose optimization te chniques: automated exposure control; mA and/or kV adjustment per patient size (includes targeted exa ms where dose is matched to clinical indication); or iterative reconstruction.
--- NOTE | 2020-12-19 06:05 | W.ED.GENAD ---
Discharge Plan Disposition Patient Disposition: [facility] Condition: Stable Discharge Details Clinical Impression: Incarcerated hernia Primary Care Provider: Carlos Victoria ED Provider: Kedar Mueller [place] Meds and New Rx's Prescriptions: No Action omega-3 fatty acids [Fish Oil Concentrate] 1,000 mg capsule 1,000 mg PO DAILY RF: 0 aspirin [Adult Aspirin Regimen] 81 mg tablet,delayed release (DR/EC) 81 mg PO DAILY RF: 0 furosemide 40 mg tablet 40 mg PO BID RF: 0 carvedilol [Coreg] 12.5 mg tablet 12.5 mg PO BID RF: 0 atorvastatin 40 mg tablet 40 mg PO QHS RF: 0 valsartan 160 mg tablet 160 mg PO DAILY Qty: 90 RF: 3 fluticasone propionate 50 mcg/actuation spray,suspension 50 mcg NS DAILY Qty: 3 RF: 4 (DME) Accu-Chek Guide test strips Strip See Rx Instructions .ROUTE .MEDSUPPLY Qty: 200 RF: 5 (DME) FreeStyle Edvin 14 Day [place] Misc See Rx Instructions .ROUTE .MEDSUPPLY Qty: 1 RF: 4 (DME) FreeStyle Edvin 14 Day Sensor Kit See Rx Instructions .ROUTE .MEDSUPPLY Qty: 6 RF: 4 metformin 500 mg tablet extended release 24 hr 1,000 mg PO BID RF: 0 magnesium 500 mg Tablet 1,000 mg PO DAILY RF: 0 allopurinol 100 mg Tablet 100 mg PO DAILY RF: 0 omeprazole 20 mg Capsule,Delayed Release(Dr/Ec) 20 mg PO DAILY RF: 0 multivitamin 1 EACH capsule 1 tab PO DAILY RF: 0 Medical Decision Making 50 yo male with hx of nonischemic cardiomyopathy, htn, gerd, known ventral hernia comes in with pain aroud his abdominal hernia since last night and nausea. Denies fevers, chills, chest pain, shortness of breath. He does have pain in the mid abdomen and does have what feels to be a hernia in this area that I am unable to reduce on exam. Given the symptoms and location of pain concern for incarcerated vs stranglated hernia, will obtain lab work and cat scan. ct confirms hernia with small bowel causing sbo, consulted dr. muñoz but unfortunately we do not have any beds available here, will need to transfer. Pt will be signed out pending call back from [facility] Pt will go to the ED at [facility] accepting physician is Nemo from general surgery Differential Diagnosis Differential Diagnosis: strangulated hernia, incarcerated hernia, pancreatitis, sbo Medical Records Medical records reviewed: Yes I reviewed the patient's medical records. Imaging Data Radiologic Study: Attestation: I personally reviewed and interpreted this imaging study as follows: Imaging: CT Scan Radiologist's impression: hernia with sbo Lab Data Lab results reviewed: Yes I reviewed the patient's lab results. HPI General Mode of arrival: ambulatory. Date/Time Provider Initiated Documentation: 12/19/20 05:53. Limitations to Documentation: no limitations. Information obtained by: patient. History of Present Illness 50 year old M presents to the emergency department with the chief complaint of abdominal pain, described as moderate, with intensity rated at 7. Quality is described as sharp, and is localized to the abdomen. Patient reports no radiation. Patient started experiencing this day(s) (1) and it has been constant. No relieving factors improve symptom(s), No exacerbating factors reported . Patient did receive the following treatments prior to arrival, none Related Data Home Medications Medication Instructions Recorded Confirmed multivitamin 1 tab PO DAILY 04/12/18 12/19/20 omega-3 fatty acids 1,000 mg 1,000 mg PO DAILY 10/19/18 12/19/20 capsule valsartan 160 mg tablet 160 mg PO DAILY #90 tab 12/27/18 12/19/20 aspirin 81 mg tablet,delayed 81 mg PO DAILY 06/29/19 12/19/20 release carvedilol 12.5 mg tablet 12.5 mg PO BID 09/27/19 12/19/20 fluticasone propionate 50 50 mcg NS DAILY #3 bottle 02/08/20 12/19/20 mcg/actuation nasal spray,suspension furosemide 40 mg tablet 40 mg PO BID tab 06/25/20 12/19/20 atorvastatin 40 mg tablet 40 mg PO QHS 10/02/20 12/19/20 blood sugar diagnostic #200 ea 10/15/20 11/23/20 flash glucose scanning reader #1 ea 11/08/20 11/23/20 flash glucose sensor #6 ea 11/08/20 11/23/20 allopurinol 100 mg PO DAILY 12/19/20 12/19/20 magnesium 1,000 mg PO DAILY 12/19/20 12/19/20 metformin 1,000 mg PO BID 12/19/20 12/19/20 omeprazole 20 mg PO DAILY 12/19/20 12/19/20 Previous Rx's Medication Instructions Recorded valsartan 160 mg tablet 160 mg PO DAILY #90 tab 12/27/18 fluticasone propionate 50 50 mcg NS DAILY #3 bottle 02/08/20 mcg/actuation nasal spray,suspension blood sugar diagnostic #200 ea 10/15/20 flash glucose scanning reader #1 ea 11/08/20 flash glucose sensor #6 ea 11/08/20 Allergies Allergy/AdvReac Type Severity Reaction Status Date / Time lisinopril AdvReac Mild cough Verified 12/19/20 05:58 General Stated Complaint: Abd Prob MARCO ANTONIO: 3 Review of Systems All systems reviewed & are unremarkable except as noted in HPI and below Constitutional Constitutional: Denies chills, Denies fever(s) and Denies weakness Cardiovascular Cardiovascular: Denies chest pain and Denies dyspnea Respiratory Respiratory: Denies cough and Denies dyspnea Gastrointestinal Gastrointestinal: Denies vomiting Musculoskeletal Musculoskeletal: Denies joint swelling Neurologic Neurologic: Denies weakness Psychiatric Psychiatric: Denies depression [facility] Medical History (Updated 12/19/20 @ 07:34 by Kedar Mueller MD) Cardiomyopathy Depression (emotion) GERD (gastroesophageal reflux disease) Hiatal hernia Hypertension LBBB (left bundle branch block) Obesity, Class III, BMI 40-49.9 (morbid obesity) Surgical History Colonoscopy - MAC (04/12/18) HERNIA REPAIR RIGHT; AGE 3 MONTHS Tonsillectomy (~1999) Family History (Updated 10/08/20 @ 16:10 by Violeta Vidal) Mother , age 73 No problems noted. Father , age 73 Diabetes Essential hypertension Stroke Maternal Grandfather , AGE 67 Heart disease Alcohol abuse Paternal Grandfather , AGE 91 Alcohol abuse Heart disease Maternal Grandmother , AGE 72 Diabetes Heart disease Paternal Grandmother Diabetes Essential hypertension Heart disease Brother Anxiety Depression Daughter Anxiety Depression Social History (Updated 10/08/20 @ 16:09 by Violeta Vidal) Smoking/Tobacco Use Status: Former Tobacco Use tobacco type: cigarettes Quit Date: 11/02/04 Tobacco: How many years used: 30 Second Hand Exposure: No Smoking risk assessment performed?: Yes Alcohol Intake: current Alcohol Intake frequency: 0-2 drinks per day Alcohol type: hard liquor Drug use: Never Caregiver/Support person: No Household members: spouse and other Details: 2 step-grandchildren Communication Needs: None Do you need help understanding health information?: Rarely 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 Pets and animals: Yes Pets and animals: cat(s) Sexually active: Yes Do you think of yourself as: straight/heterosexual Current gender identity: male and decline to answer What is your relationship status?: How often do you talk on the phone with friends or family?: three or more times per week How often do you get together with friends or relatives?: never Do you belong to any clubs or organized social groups?: no Panel score (0-1 are the most socially isolated patients): 2 What type of physical activity do you participate in: none Silke/Druze: [employer] Special silke needs: No Seatbelt use: always Helmet use: Yes Helmet use: always Drive intox or ride w/intox straddle bug driver: No Do you feel safe at home: Yes Do you feel safe in your relationship?: Yes Victim of physical abuse: No Victim of emotional abuse: No Victim of sexual abuse: No Would you like helpful sources: No Exam Const General: no acute distress Orientation: alert HENMT Head: normal to inspection Ears: external ears normal General nose exam: external nose normal Mouth: moist mucous membranes Eyes General: appearance normal, both eyes and all related structures Neck Neck: normal visual inspection Resp Effort & Inspection: normal respiratory effort and able to speak in complete sentences Cardio Rate: regular rate GI Palpation: soft and tender Skin General skin exam: no rashes or lesions noted Neuro General: patient alert and patient oriented x3 Extrem General: normal to inspection Psych Mental Status: mental status grossly normal Course Vital Signs Vital signs: Vital Signs Temperature 36.6 C 12/19/20 05:55 Pulse 78 12/19/20 05:55 Respiratory Rate 16 12/19/20 05:55 Blood Pressure 150/90 H 12/19/20 05:55 Pulse Oximetry 95 12/19/20 05:55 Temperature 36.6 C 12/19/20 05:55 Temperature Source Tympanic 12/19/20 05:55 Pulse 78 12/19/20 05:55 Respiratory Rate 16 12/19/20 05:55 Respiratory Effort Non-Labored 02/17/21 05:55 Blood Pressure 150/90 H 12/19/20 05:55 Blood Pressure Position Sitting 12/19/20 05:55 Pulse Oximetry 95 12/19/20 05:55 Oxygen Delivery Method Room Air 12/19/20 05:55 Oxygen Flow Rate 0 12/19/20 05:55 Pain Level 7 12/19/20 05:55
[2020-12-19] MEDS: HYDROmorphone 2 MG/ML VIAL 1 MG IVP ×2 (06:11→09:10)
[2020-12-19] MEDS: Ondansetron 4 MG/2 ML VIAL IVP (06:11)
[2020-12-19 06:17] LABS: Lactate 1.9 mmol/L (0.6-1.4)
[2020-12-19 06:19] LABS: Abs Immature Grans 0.02 10^3/uL (0.0-0.06); Absolute Basophil Count 0.06 10^3/uL (0.0-0.2); Absolute Monocyte Count 0.45 10^3/uL (0.1-0.8); Absolute Neutrophil Count 5.46 10^3/uL (1.2-6.7); Basophils % 0.8; Eosinophils % 2.6; HCT 43.5 % (40.0-50.0); HGB 14.4 g/dL (13.5-17.5); Immature Grans % 0.3; Lymphocytes % 20.5; MCH 31.6 pg (27.0-33.0); MCHC 33.1 % (32.0-36.0); MCV 95.4 fL (80-95); MPV 10.9 fL (8.0-11.0); Monocytes % 5.8; Nucleated RBC 0 %; Platelet Count 201 10^3/uL (130-400); RBC 4.56 10^6/uL (4.36-5.78); RDW 13.9 % (11.8-14.1); RDW-SD 48.4 fL; WBC 7.79 10^3/uL (4.4-10.8)
[2020-12-19 06:29] LABS: INR 1.2 (0.9-1.1); PTT Activated 23.4 sec (21.0-27.5); Prothrombin Time 11.6 sec (9.3-11.0)
[2020-12-19 06:32] LABS: ALT 106 U/L (16-63); AST 81 U/L (15-37); Albumin 3.7 g/dL (3.4-5.0); Alkaline Phosphatase 78 U/L (46-116); Anion Gap 15.6 mmol/L (3-11); BUN 14 mg/dL (7-18); Bilirubin, Total 1.1 mg/dL (0.2-1.0); CO2 21.4 mmol/L (21.0-32.0); CREATININE 0.9 mg/dL (0.70-1.30); Chloride 102 mmol/L (98-107); Glucose 162 mg/dL (74-106); Lipase 133 U/L (73-393); Magnesium 1.5 mg/dL (1.8-2.4); Potassium 4.5 mmol/L (3.5-5.1); Sodium 139 mmol/L (136-145); Total Protein 8.2 g/dL (6.4-8.2)
[2020-12-19] MEDS: Normal Saline Flush 10 ML SYR IVP (06:42)
[2020-12-19] MEDS: Omnipaque 350 MG/ML 100 ML BTL IJ (06:42)
[2020-12-19] MEDS: Normal Saline - Diluent 50 ML VIAL IV (06:42)
--- NOTE | 2020-12-19 07:17 | DI.VRAD_ITS ---
Addendum created by Guanaco Pascual MD on 12/19/2020 7:20:49 AM EST: THIS REPORT CONTAINS FINDINGS THAT MAY BE CRITICAL TO PATIENT CARE. The findings were verbally communicated via telephone conference with Kedar Mueller at 7:20 AM EST on 12/19/2020. The findings were acknowledged and understood. Initial report created on 12/19/2020 7:16:49 AM EST: PROCEDURE INFORMATION: Exam: CT Abdomen And Pelvis With Contrast Exam date and time: 12/19/2020 6:04 AM Age: 50 years old Clinical indication: Patient HX: Middle abdominal pain, ? strangulated hernia TECHNIQUE: Imaging protocol: Computed tomography of the abdomen and pelvis with contrast. Radiation optimization: All CT scans at this facility use at least one of these dose optimization techniques: automated exposure control; mA and/or kV adjustment per patient size (includes targeted exams where dose is matched to clinical indication); or iterative reconstruction. Contrast material: OMNIPAQUE 350; Contrast volume: 100 ml; Contrast route: INTRAVENOUS (IV); COMPARISON: CR XR hip LT complete AP pelvis 12/03/2018 10:06 AM FINDINGS: Mediastinal space: Small hiatal hernia Liver: Hepatic steatosis is present. Gallbladder and bile ducts: Normal. No calcified stones. No ductal dilation. Pancreas: Normal. No ductal dilation. Spleen: Normal. No splenomegaly. Adrenal glands: Normal. No mass. Kidneys and ureters: Normal. No hydronephrosis. Stomach and bowel: Supraumbilical ventral midline hernia contains a loop of small bowel. A small bowel obstruction is present with proximal loops of small bowel measuring up to 3.3 cm and a collapsed appearance of distal small bowel loops. Etiology appears to be incarceration in the ventral hernia. Appendix: No evidence of appendicitis. Intraperitoneal space: Unremarkable. No free air. No significant fluid collection. Vasculature: Unremarkable. No abdominal aortic aneurysm. Lymph nodes: Unremarkable. No enlarged lymph nodes. Urinary bladder: Unremarkable as visualized. Reproductive: Unremarkable as visualized. Bones/joints: Unremarkable. No acute fracture. Soft tissues: See Stomach and bowel finding. IMPRESSION: Supraumbilical ventral midline hernia contains a loop of small bowel. A small bowel obstruction is present with proximal loops of small bowel measuring up to 3.3 cm and a collapsed appearance of distal small bowel loops. Etiology appears to be incarceration in the ventral hernia. Dictated and Authenticated by: Guanaco Pascual MD. Ordering:OSWALDO Thacker MD
[2020-12-19 07:18] LABS: Bilirubin Negative (Negative); Blood Negative (Negative); Clarity Clear (Clear); Glucose Negative (Negative); Ketones Negative (Negative); Leukocyte Esterase Negative (Negative); Nitrite Negative (Negative); Specific Gravity 1.015 (1.005-1.025); Urobilinogen 0.2 EU/dL (Up TO 0.2)
[2020-12-19 07:29] LABS: Bacteria Rare HPF (Negative); Epithelial Cells Few HPF (Negative); Other Cells Rare Renal (Negative); RBC Negative HPF (0-2)
[2020-12-19 07:30] LABS: C & S Indicated? No; Casts Negative LPF (Negative); Crystals Negative HPF (Negative); Mucus Moderate (Negative)
[2020-12-19 07:50] VITALS: BP 137/73; PULSE 73; RESP 18; TEMP 36.4; O2SAT 94
[2020-12-19] MEDS: PIPERACILLIN/TAZO 4.5 GM in Normal Saline 100 ML IVPB (07:57)
[2020-12-19] MEDS: MAGNESIUM SULFATE 2 GM/50 ML BAG IVPB (08:39)
[2020-12-19 09:20] VITALS: BP 140/70; PULSE 72; RESP 18; TEMP 36.5; O2SAT 95
== END 2020-12-19 09:21 | disposition short-term general hospital (02) ==
PROVIDERS: Emergency Provider Emergency Medicine; PCP Family Medicine
DX: K43.6 Other and unspecified ventral hernia with obstruction, without gangrene (principal); I10 Essential (primary) hypertension
CPT/HCPCS: 80053; 83690; 96365; 96375; 96376; 99285; 74177; 81003; 81015; 82248; 83605; 83735; 85025; 85610; 85730; J2405; J2543; J3490

== ENCOUNTER 2021-03-21 03:16 | Outpatient (CLI) | payer OTHER, SELFPAY ==
[2021-03-21 14:16] LABS: Hemoglobin A1C 5.7 % (<5.7)
[2021-03-21 15:08] LABS: Magnesium 1.5 mg/dL (1.8-2.4)
== END 2021-03-21 03:17 | disposition home or self-care (01) ==
LOC: LBO 03:16
PROVIDERS: PCP Nurse Practitioner Family; Visit Provider Family Medicine
DX: R73.9 Hyperglycemia, unspecified (principal); E83.42 Hypomagnesemia
CPT/HCPCS: 36415; 83036; 83735

== ENCOUNTER 2021-08-28 19:18 | Observation (INO) | payer OTHER, SELFPAY ==
[2021-08-28] VITALS (26 sets, daily range): BP systolic 88–147; BP diastolic 47–77; PULSE 40–92; RESP 13–22; TEMP 36.8–37.1; O2SAT 93–98
--- NOTE | 2021-08-28 19:15 | RT.EKG_ITS ---
APPROVED REPORT Exam: Resting ECG Reason for Exam: low heart rate Patient Location: E HR:44 bpm ECG Measurements Heart Rate 44 AXIS TN 191 P 55 QRSd 165 QRS 5 QT 486 T 176 QTc 417 Conclusion Sinus bradycardia...rate< 60 Left bundle branch block...QRSd>120, broad/notched R 2:1 AV block
[2021-08-28 19:59] LABS: Abs Immature Grans 0.03 10^3/uL (0.0-0.06); Absolute Basophil Count 0.06 10^3/uL (0.0-0.2); Absolute Eosinophil Count 0.17 10^3/uL (0.0-0.7); Absolute Lymphocyte Count 1.83 10^3/uL (1.2-3.4); Absolute Monocyte Count 0.46 10^3/uL (0.1-0.8); Absolute Neutrophil Count 4.24 10^3/uL (1.2-6.7); Basophils % 0.9; Eosinophils % 2.5; HCT 42.5 % (40.0-50.0); HGB 13.5 g/dL (13.5-17.5); Immature Grans % 0.4; MCH 30.5 pg (27.0-33.0); MCHC 31.8 % (32.0-36.0); MCV 96.2 fL (80-95); MPV 11.1 fL (8.0-11.0); Monocytes % 6.8; Neutrophils % 62.4; Nucleated RBC 0 %; Platelet Count 189 10^3/uL (130-400); RBC 4.42 10^6/uL (4.36-5.78); RDW 13.6 % (11.8-14.1); RDW-SD 48.3 fL; WBC 6.79 10^3/uL (4.4-10.8)
[2021-08-28 20:17] LABS: ALT 72 U/L (16-63); AST 40 U/L (15-37); Albumin 3.7 g/dL (3.4-5.0); Alkaline Phosphatase 72 U/L (46-116); Anion Gap 11.9 mmol/L (3-11); BUN 15 mg/dL (7-18); Bilirubin, Total 1.1 mg/dL (0.2-1.0); CO2 27.1 mmol/L (21.0-32.0); CREATININE 1.2 mg/dL (0.70-1.30); Calcium 8.7 mg/dL (8.5-10.1); Chloride 105 mmol/L (98-107); Glucose 125 mg/dL (74-106); Magnesium 1.3 mg/dL (1.8-2.4); Potassium 3.4 mmol/L (3.5-5.1); Sodium 144 mmol/L (136-145); Total Protein 7.7 g/dL (6.4-8.2)
--- NOTE | 2021-08-28 20:25 | W.ED.GENAD ---
Discharge Plan Disposition Patient Disposition: [facility] Condition: Serious Discharge Details Chief Complaint: GenMedical Clinical Impression: Bradycardia, sinus Primary Care Provider: Stew Gentile ED Provider: Jw Miranda Home Meds and New Rx's Prescriptions: No Action omega-3 fatty acids [Fish Oil Concentrate] 1,000 mg capsule 1,000 mg PO DAILY RF: 0 aspirin [Adult Aspirin Regimen] 81 mg tablet,delayed release (DR/EC) 81 mg PO DAILY RF: 0 furosemide 40 mg tablet 40 mg PO BID RF: 0 allopurinol 100 mg tablet 200 mg PO DAILY Qty: 90 RF: 2 carvedilol [Coreg] 12.5 mg tablet 12.5 mg PO BID RF: 0 atorvastatin 40 mg tablet 40 mg PO QHS RF: 0 valsartan 160 mg tablet 160 mg PO DAILY Qty: 90 RF: 3 fluticasone propionate 50 mcg/actuation spray,suspension 50 mcg NS DAILY Qty: 3 RF: 4 (DME) Accu-Chek Guide test strips Strip See Rx Instructions .ROUTE .MEDSUPPLY Qty: 200 RF: 5 (DME) FreeStyle Edvin 14 Day [place] Misc See Rx Instructions .ROUTE .MEDSUPPLY Qty: 1 RF: 4 (DME) FreeStyle Edvin 14 Day Sensor Kit See Rx Instructions .ROUTE .MEDSUPPLY Qty: 6 RF: 4 Rybelsus 7 mg tablet 7 mg PO DAILY Qty: 90 RF: 2 metformin 500 mg tablet extended release 24 hr 1,000 mg PO BID Qty: 360 RF: 4 magnesium 500 mg Tablet 1,000 mg PO DAILY RF: 0 multivitamin 1 EACH capsule 1 tab PO DAILY RF: 0 omeprazole 10 mg Capsule,Delayed Release(Dr/Ec) 10 mg PO BID RF: 0 Medical Decision Making This patient is a 50-year-old male who presents to the emergency department with chief complaint of symptomatic bradycardia. Based on the history, exam, this could be due to carvedilol toxicity. Other causes of bradycardia such as hyperkalemia, complete heart block, Lyme carditis seem less likely. Patient therefore will be admitted to the hospital. I spoke with the admitting hospitalist. Patient agrees with inpatient treatment plan. Medical Records Medical records reviewed: Yes I reviewed the patient's medical records. Lab Data Lab results reviewed: Yes I reviewed the patient's lab results. ECG Data Attestation: I personally reviewed and interpreted this ECG (s) as follows: Prior ECG tracings: available for review Interpretation: Sinus rhythm, rate of 44, left bundle branch block, appropriate ST depression in elevation for left bundle branch block. HPI This patient is a 50-year-old male with multiple medical problems including cardiomyopathy, on carvedilol and furosemide who presents to the emergency department with chief complaint of bradycardia. He first noticed it about 8 days ago. He was using his Fitbit and noted that his heart rate was occasionally going down into the 40s. When that happens, he feels lightheaded, sometimes has some nausea associated with it and shortness of breath. He denies any chest pain, fever, cough, abdominal pain, vomiting or diarrhea. 6 weeks ago he had abdominal surgery for hernia repair. Nothing seems to make his heart rate go lower or the back up. Symptoms are mild to moderate in severity. They are intermittent. General Date/Time Provider Initiated Documentation: 08/28/21 19:28. Related Data Home Medications Medication Instructions Recorded Confirmed multivitamin 1 tab PO DAILY 04/12/18 08/28/21 omega-3 fatty acids 1,000 mg 1,000 mg PO DAILY 10/19/18 08/28/21 capsule valsartan 160 mg tablet 160 mg PO DAILY #90 tab 12/27/18 08/28/21 aspirin 81 mg tablet,delayed 81 mg PO DAILY 06/29/19 08/28/21 release carvedilol 12.5 mg tablet 12.5 mg PO BID 09/27/19 08/28/21 fluticasone propionate 50 50 mcg NS DAILY #3 bottle 02/08/20 08/28/21 mcg/actuation nasal spray,suspension furosemide 40 mg tablet 40 mg PO BID tab 06/25/20 08/28/21 atorvastatin 40 mg tablet 40 mg PO QHS 10/02/20 08/28/21 blood sugar diagnostic #200 ea 10/15/20 04/03/21 flash glucose scanning reader #1 ea 11/08/20 04/03/21 flash glucose sensor #6 ea 11/08/20 04/03/21 magnesium 1,000 mg PO DAILY 12/19/20 08/28/21 allopurinol 100 mg tablet 200 mg PO DAILY #90 tab 04/03/21 08/28/21 semaglutide 7 mg tablet 7 mg PO DAILY #90 tab 04/26/21 08/28/21 metformin 500 mg tablet,extended 1,000 mg PO BID #360 tab 05/13/21 08/28/21 release 24 hr omeprazole 10 mg PO BID 08/28/21 08/28/21 Previous Rx's Medication Instructions Recorded valsartan 160 mg tablet 160 mg PO DAILY #90 tab 12/27/18 fluticasone propionate 50 50 mcg NS DAILY #3 bottle 02/08/20 mcg/actuation nasal spray,suspension blood sugar diagnostic #200 ea 10/15/20 flash glucose scanning reader #1 ea 11/08/20 flash glucose sensor #6 ea 11/08/20 allopurinol 100 mg tablet 200 mg PO DAILY #90 tab 04/03/21 semaglutide 7 mg tablet 7 mg PO DAILY #90 tab 04/26/21 metformin 500 mg tablet,extended 1,000 mg PO BID #360 tab 05/13/21 release 24 hr Allergies Allergy/AdvReac Type Severity Reaction Status Date / Time lisinopril AdvReac Mild cough Verified 04/03/21 09:48 General Stated Complaint: GenMedical MARCO ANTONIO: 3 Review of Systems All systems reviewed & are unremarkable except as noted in HPI and below PFSH Medical History Cardiomyopathy Depression (emotion) GERD (gastroesophageal reflux disease) Hiatal hernia Hypertension LBBB (left bundle branch block) Obesity, Class III, BMI 40-49.9 (morbid obesity) Surgical History Colonoscopy - MAC (04/12/18) HERNIA REPAIR RIGHT; AGE 3 MONTHS Tonsillectomy (~1999) Family History Mother , age 73 No problems noted. Father , age 73 Diabetes Essential hypertension Stroke Maternal Grandfather , AGE 67 Heart disease Alcohol abuse Paternal Grandfather , AGE 91 Alcohol abuse Heart disease Maternal Grandmother , AGE 72 Diabetes Heart disease Paternal Grandmother Diabetes Essential hypertension Heart disease Brother Anxiety Depression Daughter Anxiety Depression Social History (Updated 10/08/20 @ 16:09 by Violeta Vidal) Smoking/Tobacco Use Status: Former Tobacco Use tobacco type: cigarettes Quit Date: 11/02/04 Tobacco: How many years used: 30 Second Hand Exposure: No Smoking risk assessment performed?: Yes Alcohol Intake: current Alcohol Intake frequency: 0-2 drinks per day Alcohol type: hard liquor Drug use: Never Substance use type: does not use Caregiver/Support person: No Household members: spouse and other Details: 2 step-grandchildren Communication Needs: None Do you need help understanding health information?: Rarely 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 Pets and animals: Yes Pets and animals: cat(s) Sexually active: Yes Do you think of yourself as: straight/heterosexual Current gender identity: male and decline to answer What is your relationship status?: How often do you talk on the phone with friends or family?: three or more times per week How often do you get together with friends or relatives?: never Do you belong to any clubs or organized social groups?: no Panel score (0-1 are the most socially isolated patients): 2 What type of physical activity do you participate in: none Silke/Taoism: Church Special silke needs: No Seatbelt use: always Helmet use: Yes Helmet use: always Drive intox or ride w/intox milk delivery driver: No Do you feel safe at home: Yes Do you feel safe in your relationship?: Yes Victim of physical abuse: No Victim of emotional abuse: No Victim of sexual abuse: No Would you like helpful sources: No Exam Narrative Exam Narrative: GEN: NAD. HEENT:EOM intact, conjunctivae normal. normal external nose and ears. Neck: normal ROM. supple. CV: bradycardic, normal S1, S2, no m/r/g. 2+ radial pulse bilaterally. Resp: no respiratory distress, lung sounds clear bilaterally. Abd: soft, non-tender, non distended, no hepatosplenomegaly. Ext: no trauma, no edema. Skin: warm, dry, intact. Neuro: alert, no focal weakness. Psych: congruent mood. Course Vital Signs Vital signs: Vital Signs Temperature 37.1 C 08/28/21 19:25 Pulse 48 L 08/28/21 19:25 Respiratory Rate 20 08/28/21 19:25 Blood Pressure 147/55 H 08/28/21 19:25 Pulse Oximetry 96 08/28/21 19:25 Temperature 37.1 C 08/28/21 19:25 Temperature Source Temporal Artery Scan 08/28/21 19:25 Pulse 48 L 08/28/21 19:25 Respiratory Rate 20 08/28/21 19:35 Respiratory Effort Non-Labored 08/28/21 19:35 Respiratory Depth Normal 08/28/21 19:35 Respiratory Pattern Normal 08/28/21 19:35 Blood Pressure 147/55 H 08/28/21 19:25 Pulse Oximetry 96 08/28/21 19:25 Oxygen Delivery Method Room Air 08/28/21 19:25 Oxygen Flow Rate 0 08/28/21 19:25 Pain Level 0 08/28/21 19:25 Lab/Test Results Lab/Test Results: Laboratory Tests Range/Units 08/28/21 19:40 WBC (4.4-10.8) 10^3/uL 6.79 RBC (4.36-5.78) 10^6/uL 4.42 Hgb (13.5-17.5) g/dL 13.5 Hct (40.0-50.0) % 42.5 MCV (80-95) fL 96.2 H MCH (27.0-33.0) pg 30.5 MCHC (32.0-36.0) % 31.8 L RDW (11.8-14.1) % 13.6 Plt Count (130-400) 10^3/uL 189 MPV (8.0-11.0) fL 11.1 H Immature Gran % 0.4 Neutrophils % 62.4 Lymphocytes % 27.0 Monocytes % 6.8 Eosinophils % 2.5 Basophils % 0.9 Nucleated RBC % % 0 Absolute Neutrophils (1.2-6.7) 10^3/uL 4.24 Absolute Lymphocytes (1.2-3.4) 10^3/uL 1.83 Absolute Monocytes (0.1-0.8) 10^3/uL 0.46 Absolute Eosinophils (0.0-0.7) 10^3/uL 0.17 Absolute Basophils (0.0-0.2) 10^3/uL 0.06
[2021-08-28 20:30] LABS: Troponin I 0.09 ng/mL (<0.06)
[2021-08-28] MEDS: MAGNESIUM SULFATE 2 GM/50 ML BAG IVPB (20:43)
[2021-08-28 21:35] LABS: COVID-19 PCR Negative (Negative)
--- NOTE | 2021-08-28 21:36 | W.PM.HP.N ---
Date of service: 08/28/21 Time of Service: 21:36 Assessment and Plan Assessment and plan (1) Bradycardia, sinus: Status: Acute Assessment and plan: hold carvedilol, monitor rhythm overnight. (2) LBBB (left bundle branch block): Status: Chronic Assessment and plan: chronic. monitor rhythm for any development of worsening HB (3) Cardiomyopathy: Status: Chronic Assessment and plan: patient states that this is a nonischemic cardiomyopathy previously evaluated at [facility]. Will ask [facility] for records of last echo, last cards consult/office notes and last cardiac cath. Hold carvedilol as listed above but continue all his other meds (valsartan, furosemide. Qualifiers: Cardiomyopathy type: unspecified Qualified Code(s): I42.9 - Cardiomyopathy, unspecified (4) DM type 2 (diabetes mellitus, type 2): Status: Acute Assessment and plan: continue home diabetic meds, monitor glucose AC/HS and cover w/ low dose SSI. His last A1c was 5.7% on 03/21/21 (down from 7.5% on 11/23/20). Qualifiers: Diabetes mellitus nursing home insulin use: without nursing home use Diabetes mellitus complication status: without complication Qualified Code(s): E11.9 - Type 2 diabetes mellitus without complications History of Present Illness History of Present Illness Chief Complaint: bradycardia, fatigue Narrative: 50 yr old male w/ PMH of obesity, non-ischemic cardiomypathy, NIDDM, GERD, HTN, LBBB, gout who presented to the ER w/ symptoms of exertional dyspnea, fatigue, and new onset bradycardia. Patient wears a Fit Bit watch and has an [place] on his phone. He has noticed since 08/21/21 that he has had intermittent HR in the mid to upper 40's. At first this was just occasional but now he has spells every day and lasting throughout the day. He has been experiencing fatigue and dyspnea w/out chest pain/pressure and no syncope or near syncope. He called his insurance nurse provider who advised him to call 911. On arrival he was noted to have stable BP and oxygen levels and his rhythm was sinus bradycardia in the 40's w/ LBBB. He takes carvedilol 12.5 mg bid and says that there has been no recent changes in the dose. He is on no other negative chronotropic meds. Initial troponin was 0.09. EKG demonstrated SB 44 bpm w/ LBBB pattern, no ST elevation, and normal TX interval of 191 msec. Patient is admitted on observation on telemetry while his carvedilol is witheld to see if his HR improves w/ cessation of his carvedilol. Review of Systems All systems reviewed & are unremarkable except as noted in HPI and below PFSH Medical History (Updated 08/29/21 @ 01:09 by Chaz Pena) Cardiomyopathy Depression (emotion) GERD (gastroesophageal reflux disease) Hiatal hernia Hypertension LBBB (left bundle branch block) Obesity, Class III, BMI 40-49.9 (morbid obesity) Surgical History Colonoscopy - MAC (04/12/18) HERNIA REPAIR RIGHT; AGE 3 MONTHS Tonsillectomy (~1999) Family History Mother , age 73 No problems noted. Father , age 73 Diabetes Essential hypertension Stroke Maternal Grandfather , AGE 67 Heart disease Alcohol abuse Paternal Grandfather , AGE 91 Alcohol abuse Heart disease Maternal Grandmother , AGE 72 Diabetes Heart disease Paternal Grandmother Diabetes Essential hypertension Heart disease Brother Anxiety Depression Daughter Anxiety Depression Social History Smoking/Tobacco Use Status: Former Tobacco Use tobacco type: cigarettes Quit Date: 11/02/04 Tobacco: How many years used: 30 Second Hand Exposure: No Smoking risk assessment performed?: Yes Alcohol Intake: current Alcohol Intake frequency: 0-2 drinks per day Alcohol type: hard liquor Drug use: Never Substance use type: does not use Caregiver/Support person: No Household members: spouse and other Details: 2 step-grandchildren Communication Needs: None Do you need help understanding health information?: Rarely 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 Pets and animals: Yes Pets and animals: cat(s) Sexually active: Yes Do you think of yourself as: straight/heterosexual Current gender identity: male and decline to answer What is your relationship status?: How often do you talk on the phone with friends or family?: three or more times per week How often do you get together with friends or relatives?: never Do you belong to any clubs or organized social groups?: no Panel score (0-1 are the most socially isolated patients): 2 What type of physical activity do you participate in: none Silke/Yarsanism: Zoroastrian Special silke needs: No Seatbelt use: always Helmet use: Yes Helmet use: always Drive intox or ride w/intox bulk truck driver: No Do you feel safe at home: Yes Do you feel safe in your relationship?: Yes Victim of physical abuse: No Victim of emotional abuse: No Victim of sexual abuse: No Would you like helpful sources: No Meds Allergies and Home Medications Allergies Allergy/AdvReac Type Severity Reaction Status Date / Time lisinopril AdvReac Mild cough Verified 04/03/21 09:48 Home Medications Medication Instructions Recorded Confirmed Type multivitamin 1 tab PO DAILY 04/12/18 08/28/21 History omega-3 fatty acids 1,000 mg 1,000 mg PO DAILY 10/19/18 08/28/21 History capsule valsartan 160 mg tablet 160 mg PO DAILY #90 tab 12/27/18 08/28/21 Rx aspirin 81 mg tablet,delayed 81 mg PO DAILY 06/29/19 08/28/21 History release carvedilol 12.5 mg tablet 12.5 mg PO BID 09/27/19 08/28/21 History fluticasone propionate 50 50 mcg NS DAILY #3 bottle 02/08/20 08/28/21 Rx mcg/actuation nasal spray,suspension furosemide 40 mg tablet 40 mg PO BID tab 06/25/20 08/28/21 History atorvastatin 40 mg tablet 40 mg PO QHS 10/02/20 08/28/21 History blood sugar diagnostic #200 ea 10/15/20 04/03/21 Rx flash glucose scanning reader #1 ea 11/08/20 04/03/21 Rx flash glucose sensor #6 ea 11/08/20 04/03/21 Rx magnesium 1,000 mg PO DAILY 12/19/20 08/28/21 History allopurinol 100 mg tablet 200 mg PO DAILY #90 tab 04/03/21 08/28/21 Rx semaglutide 7 mg tablet 7 mg PO DAILY #90 tab 04/26/21 08/28/21 Rx metformin 500 mg tablet,extended 1,000 mg PO BID #360 tab 05/13/21 08/28/21 Rx release 24 hr omeprazole 10 mg PO BID 08/28/21 08/28/21 History Exam Const General: cooperative, no acute distress and well developed Nutritional Appearance: obese Orientation: alert, awake and oriented x3 HENMT Head: normal to inspection Ears: hearing grossly normal bilaterally General nose exam: external nose normal Face and sinus: normal facial exam Mouth: oral mucosae normal Eyes General: appearance normal, both eyes and all related structures Alignment and Position: alignment normal Periorbital: periorbital findings normal Conjunctivae: conjunctivae normal Sclera: sclerae normal Cornea: corneas normal Pupils: PERRL EOM: EOM intact bilaterally Neck Neck: normal visual inspection, full ROM, no lymphadenopathy and no JVD Thyroid: thyroid normal Carotids: normal carotid upstroke Lymphatic: no lymphadenopathy noted Chest Chest: normal inspection of the chest Resp Effort & Inspection: normal respiratory effort and able to speak in complete sentences Auscultation: clear to auscultation bilaterally Cardio Jugular venous pressure: no JVD Palpation: normal PMI Rate: bradycardic Rhythm: regular rhythm Pulses: normal peripheral pulses GI Inspection: obesity and scar (three small laparotomy wounds that appear to be healing) Palpation: soft and no hepatosplenomegaly Auscultation: normal bowel sounds Skin General skin exam: no rashes or lesions noted Neuro General: patient alert, patient awake and patient oriented x3 Cranial Nerves: CN's II-XI intact bilaterally Cognition: normal cognition Speech: speech normal Motor: muscle tone normal throughout Sensory Exam: no sensory deficits noted Extrem General: normal to inspection, full ROM and capillary refill normal Psych Appearance: grossly normal Mental Status: mental status grossly normal Speech and Movement: speech and movement normal Mood: congruent mood Affect: normal affect Attitude: cooperative Thought Process: normal Thought Content: normal Insight: insight good Judgment: judgment good Results Labs Result diagrams: 08/28/21 19:40 08/28/21 19:40 Labs: Laboratory Results - last 24 hr 08/28/21 08/28/21 08/28/21 19:40 19:40 20:30 WBC 6.79 RBC 4.42 Hgb 13.5 Hct 42.5 MCV 96.2 H MCH 30.5 MCHC 31.8 L RDW 13.6 Plt Count 189 MPV 11.1 H Immature Gran % 0.4 Neutrophils % 62.4 Lymphocytes % 27.0 Monocytes % 6.8 Eosinophils % 2.5 Basophils % 0.9 Nucleated RBC % 0 Absolute Neutrophils 4.24 Absolute Lymphocytes 1.83 Absolute Monocytes 0.46 Absolute Eosinophils 0.17 Absolute Basophils 0.06 Sodium 144 Potassium 3.4 L Chloride 105 Carbon Dioxide 27.1 Anion Gap 11.9 H BUN 15 Creatinine 1.2 Estimated GFR/1.73 m2 >= 60.00 Glucose 125 H Calcium 8.7 Magnesium 1.3 L Total Bilirubin 1.1 H AST 40 H ALT 72 H Alkaline Phosphatase 72 Troponin I 0.09 H* Total Protein 7.7 Albumin 3.7 COVID-19 Source NASOPHARYX Last Vital Signs Temp 37.1 C 08/28/21 19:25 Pulse 42 L 08/28/21 21:16 Resp 16 08/28/21 21:20 BP 106/59 L 08/28/21 21:16 Pulse Ox 97 08/28/21 21:20
[2021-08-29 00:06] LABS: Troponin I 0.08 ng/mL (<0.06)
[2021-08-29] MEDS: Potassium Chloride 10 MEQ CAPCR 40 MEQ PO (01:35)
[2021-08-29] MEDS: Atorvastatin 40 MG TAB PO (01:36)
[2021-08-29] MEDS: Magnesium Oxide 400 MG TAB 800 MG PO ×2 (01:36→09:19)
[2021-08-29 02:00] VITALS: BP 125/80; PULSE 83; RESP 22; TEMP 36.6
[2021-08-29 03:10] VITALS: BP 146/81; PULSE 77; TEMP 36.5
[2021-08-29 03:33] VITALS: PULSE 70
[2021-08-29 07:00] VITALS: PULSE 78
[2021-08-29 07:46] LABS: ALT 65 U/L (16-63); AST 39 U/L (15-37); Albumin 3.4 g/dL (3.4-5.0); Alkaline Phosphatase 62 U/L (46-116); Bilirubin, Direct 0.2 mg/dL (0.0-0.2); Bilirubin, Total 0.9 mg/dL (0.2-1.0); Total Protein 6.6 g/dL (6.4-8.2)
[2021-08-29 07:55] LABS: Anion Gap 8.3 mmol/L (3-11); BUN 15 mg/dL (7-18); CO2 28.7 mmol/L (21.0-32.0); Calcium 8.3 mg/dL (8.5-10.1); Chloride 108 mmol/L (98-107); Glucose 105 mg/dL (74-106); Magnesium 1.8 mg/dL (1.8-2.4); Potassium 3.7 mmol/L (3.5-5.1); Sodium 145 mmol/L (136-145); TSH (W/Ref FT4) 1.44 uIU/mL (0.36-3.74)
[2021-08-29 07:57] VITALS: BP 136/81; PULSE 74; RESP 17; TEMP 35.9; O2SAT 97
[2021-08-29] MEDS: Allopurinol 100 MG TAB 200 MG PO (09:18)
[2021-08-29] MEDS: Omega-3 Fatty Acids 1000 MG CAP PO (09:18)
[2021-08-29] MEDS: Aspirin E.C. 81 MG TABEC PO (09:18)
[2021-08-29] MEDS: Omeprazole 10 MG CAPCR PO (09:18)
[2021-08-29] MEDS: Multivitamin TAB 1 TAB PO (09:18)
[2021-08-29] MEDS: Enoxaparin 40 MG/0.4 ML SYR SC (09:18)
[2021-08-29] MEDS: Valsartan 80 MG TAB 160 MG PO (09:18)
[2021-08-29] MEDS: Potassium Chloride 20 MEQ TABCR PO (09:19)
[2021-08-29] MEDS: Furosemide 40 MG TAB PO ×2 (09:19→17:16)
[2021-08-29] MEDS: Normal Saline Flush 10 ML SYR IVP (09:20)
[2021-08-29] MEDS: Fluticasone NASAL SPRAY 16 GM BTL NS (09:32)
[2021-08-29] MEDS: metFORMIN C.R. 500 MG TABCR 1000 MG PO (09:39)
--- NOTE | 2021-08-29 11:25 | PDOC.CMIN ---
- If Service Date Differs Date of service: 08/29/21 Time of Service: 11:25 Care Management Initial Assess REASON FOR HOSPITALIZATION:: Bradycardia PAST MEDICAL HISTORY/PAST SURGICAL HISTORY:: Medical History (Updated 08/29/21 @ 01:09 by Chaz Pena). Cardiomyopathy. Depression (emotion). GERD (gastroesophageal reflux disease). Hiatal hernia. Hypertension. LBBB (left bundle branch block). Obesity, Class III, BMI 40-49.9 (morbid obesity). Surgical History . Colonoscopy - MAC (04/12/18). HERNIA REPAIR. RIGHT; AGE 3 MONTHS. Tonsillectomy (~1999) PREVIOUS FUNCTIONAL STATUS/SOCIAL/FAMILY SUPPORTS:: Sarbjit, as Jeff likes to be called, lives in [place] with his Thi. 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 Sarbjit has one daughter and Thi has a son and a daughter and all are close and supportive. Sarbjit is independent at baseline and receives no community services. CURRENT FUNCTIONAL STATUS:: Sarbjit was sitting up in bed visiting with Thi when CM met with him. Both were open and friendly and readily engaged with CM. Sarbjit indicated that he is hoping to be discharged later today. During the conversation, advanced directives were discussed. Neither Sarbjit not Thi currently have ADs and requested a copy. CM provided them with 2 copies and offered to assist if needed. ADVANCE DIRECTIVES:: None on file Has patient been provided with info about the portal/API?: Yes Did the patient sign up for the portal?: Yes (previously) CODE STATUS:: Full Code INSURANCE COVERAGE / FINANCIAL ISSUES:: [employer] CURRENT HOME/COMMUNITY SERVICES/EQUIPMENT:: none PRIMARY CARE PHYSICIAN:: Stew Gentile POTENTIAL DISCHARGE NEEDS:: Follow up with PCP and plan of care PATIENT/FAMILY EDUCATION NEEDS:: Review of discharge instructions, medications, limitations, follow up plan, Ask Me Three TRANSPORTATION:: via private vehicle with PLAN:: Sarbjit will be discharged home with no new services. He will follow up with his community providers and plan of care and transport with his .
[2021-08-29 14:50] VITALS: BP 138/88; PULSE 75; RESP 18; TEMP 36.6; O2SAT 93
--- NOTE | 2021-08-29 14:55 | CHAPLAIN ---
Jeff was up in his chair trying to work on his laptop but was having trouble with having enough internet strength. 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 Because of the underfunded[place] [facility] programs in recent years, the teachers' and state employees' pension programs have come under financial scrutiny lately. Jeff said he has been working from home for nearly two years now. He came to the ED with low blood pressure and is staying to be observed he explained and until his blood pressure is consistently better. Jeff was raised in [facility] and now lives [place].
--- NOTE | 2021-08-29 15:17 | W.PM.DS.N ---
Date of service: 08/29/21 Time of Service: 15:33 DS: Diagnosis Discharge Diagnosis (1) Bradycardia, sinus: Status: Acute (2) LBBB (left bundle branch block): Status: Chronic (3) Cardiomyopathy: Status: Chronic (4) DM type 2 (diabetes mellitus, type 2): Status: Acute Discharge Plan Disposition Patient Disposition: HOME Condition: Stable Discharge Details Reason For Visit: Bradycardia Admit Date/Time: 08/28/21 21:22 Admit Provider: Chaz Pena Attending Provider: Chaz Pena Primary Care Provider: Stew Gentile Hospital Course Hospital Course: This is a 50 year old male with history of obesity, non-ischemic cardiomypathy, NIDDM, GERD, HTN, LBBB, gout who presents to ED with symptomatic bradycardia, reporting fatigue, shortness of breath with activity, lightheadedness/dizziness. work up shows no acute EKG changes and serial troponins remain flat. He has experienced no chest pain or pressure. He was referred to observation on telemetry. His coreg placed on hold. Overnight heart rate improved to 60-70's. He was asymptomatic. He was hemodynamically stable. echocardiogram was completed but read not available at discharge. He will be instructed to reduce his coreg dose and to follow up with cardiology. he wishes f/u here at [facility]. a cardiac event recorder was placed at discharge. discharge discussed with DR antunez. Home Meds and New Rx's Prescriptions: Continued omega-3 fatty acids [Fish Oil Concentrate] 1,000 mg capsule 1,000 mg PO DAILY RF: 0 aspirin [Adult Aspirin Regimen] 81 mg tablet,delayed release (DR/EC) 81 mg PO DAILY RF: 0 furosemide 40 mg tablet 40 mg PO BID RF: 0 allopurinol 100 mg tablet 200 mg PO DAILY Qty: 90 RF: 2 atorvastatin 40 mg tablet 40 mg PO QHS RF: 0 valsartan 160 mg tablet 160 mg PO DAILY Qty: 90 RF: 3 fluticasone propionate 50 mcg/actuation spray,suspension 50 mcg NS DAILY Qty: 3 RF: 4 (DME) Accu-Chek Guide test strips Strip See Rx Instructions .ROUTE .MEDSUPPLY Qty: 200 RF: 5 (DME) FreeStyle Edvin 14 Day Riddle Misc See Rx Instructions .ROUTE .MEDSUPPLY Qty: 1 RF: 4 (DME) FreeStyle Edvin 14 Day Sensor Kit See Rx Instructions .ROUTE .MEDSUPPLY Qty: 6 RF: 4 Rybelsus 7 mg tablet 7 mg PO DAILY Qty: 90 RF: 2 metformin 500 mg tablet extended release 24 hr 1,000 mg PO BID Qty: 360 RF: 4 magnesium 500 mg Tablet 1,000 mg PO DAILY RF: 0 multivitamin 1 EACH capsule 1 tab PO DAILY RF: 0 omeprazole 10 mg Capsule,Delayed Release(Dr/Ec) 10 mg PO BID RF: 0 Changed carvedilol [Coreg] 12.5 mg tablet 6.25 mg PO BID Qty: 0 RF: 0 Discharge Instructions Instructions: Bradycardia (DC) Additional Instructions: please reduce your coreg dose in half. wear nuclear monitoring technician as directed. return for new or worsening symptoms Referrals: Roshni Osuna MD [ [facility] STAFF PHYSICIAN] - Stew Gentile MD [Primary Care Provider] - Activity:: Activity as Tolerated Equipment/Supplies:: No Equipment Needed Diet:: As Tolerated Discharge Orders Discharge Orders: Discharge Order (Routine); Ordered 08/29/21 Ordered By: Luz Winter Other Ambulatory Orders: Cardiac Event Recorder (Routine) Timeframe: [id number] Facility: [facility] - Location: Respiratory Therapy Ordered By: Luz Winter DS: Summary Time Spent with Patient providing and/or coordinating discharge services: Less than 30 minutes Status at Discharge Functional status at discharge: independent ambulation Overall status at discharge: patient is back to baseline Mental Status: mental status grossly normal Speech and Movement: speech and movement normal Mood: congruent mood Affect: normal affect Exam Const General: cooperative, comfortable and no acute distress Nutritional Appearance: obese Orientation: alert, awake and oriented x3 HENNY Head: normal to inspection, normocephalic and atraumatic Mouth: oral mucosae normal Resp Effort & Inspection: normal respiratory effort Auscultation: clear to auscultation bilaterally Cardio Rate: regular rate Rhythm: regular rhythm GI Palpation: soft Auscultation: normal bowel sounds Skin General skin exam: no rashes or lesions noted Neuro General: patient alert, patient awake, patient oriented x3 and no focal motor deficits Cognition: normal cognition Speech: speech normal Gait: normal gait Motor: muscle tone normal throughout Extrem General: normal to inspection and full ROM Psych Mental Status: mental status grossly normal Speech and Movement: speech and movement normal Mood: congruent mood Affect: normal affect DS: Data Vitals/I&O Vitals and I&O: Vital Signs Temperature 36.6 C 08/29/21 14:50 Temperature Source Tympanic 08/29/21 14:50 Pulse 75 08/29/21 14:50 Pulse Rhythm Regular 08/29/21 09:00 Pulse 43 L 08/28/21 21:50 Respiratory Rate 18 08/29/21 14:50 Respiratory Effort Non-Labored 08/29/21 09:00 Respiratory Depth Normal 08/29/21 09:00 Respiratory Pattern Normal 08/29/21 09:00 Blood Pressure 138/88 08/29/21 14:50 Blood Pressure Mean 62 08/28/21 21:32 Pulse Oximetry 93 08/29/21 14:50 Oxygen Delivery Method Room Air 08/29/21 14:50 Oxygen Flow Rate 0 08/29/21 14:50 Pain Level 0 08/29/21 14:50 Intake & Output 08/28/21 08/29/21 08/29/21 23:59 11:59 23:59 Intake Total 60 / 60 490 / 490 Output Total 675 / 675 Balance 60 / 60 -185 / -185 Weight 151.5 kg 153 kg Intake: IV 60 / 60 Oral 490 / 490 Output: Urine 675 / 675 Other: Urine Color Straw Urine Appearance Clear Urine Odor Normal Voiding Methods Urinal Data Completed and Pending Labs on day of discharge: Labs from last 24 hours 08/29/21 08/29/21 08/29/21 06:59 06:59 06:59 WBC RBC Hgb Hct MCV MCH MCHC RDW Plt Count MPV Immature Gran % Neutrophils % Lymphocytes % Monocytes % Eosinophils % Basophils % Nucleated RBC % Absolute Neutrophils Absolute Lymphocytes Absolute Monocytes Absolute Eosinophils Absolute Basophils Sodium 145 Potassium 3.7 Chloride 108 H Carbon Dioxide 28.7 Anion Gap 8.3 BUN 15 Creatinine 1.0 Estimated GFR/1.73 m2 >= 60.00 Glucose 105 Calcium 8.3 L Magnesium 1.8 Total Bilirubin 0.9 Conjugated Bilirubin 0.2 AST 39 H ALT 65 H Alkaline Phosphatase 62 Troponin I 0.10 H* Total Protein 6.6 Albumin 3.4 TSH 1.44 COVID-19 Source SARS-CoV-2 (PCR) 08/28/21 08/28/21 08/28/21 23:35 20:30 19:40 WBC 6.79 RBC 4.42 Hgb 13.5 Hct 42.5 MCV 96.2 H MCH 30.5 MCHC 31.8 L RDW 13.6 Plt Count 189 MPV 11.1 H Immature Gran % 0.4 Neutrophils % 62.4 Lymphocytes % 27.0 Monocytes % 6.8 Eosinophils % 2.5 Basophils % 0.9 Nucleated RBC % 0 Absolute Neutrophils 4.24 Absolute Lymphocytes 1.83 Absolute Monocytes 0.46 Absolute Eosinophils 0.17 Absolute Basophils 0.06 Sodium Potassium Chloride Carbon Dioxide Anion Gap BUN Creatinine Estimated GFR/1.73 m2 Glucose Calcium Magnesium Total Bilirubin Conjugated Bilirubin AST ALT Alkaline Phosphatase Troponin I 0.08 H* Total Protein Albumin TSH COVID-19 Source NASOPHARYX SARS-CoV-2 (PCR) Negative 08/28/21 19:40 WBC RBC Hgb Hct MCV MCH MCHC RDW Plt Count MPV Immature Gran % Neutrophils % Lymphocytes % Monocytes % Eosinophils % Basophils % Nucleated RBC % Absolute Neutrophils Absolute Lymphocytes Absolute Monocytes Absolute Eosinophils Absolute Basophils Sodium 144 Potassium 3.4 L Chloride 105 Carbon Dioxide 27.1 Anion Gap 11.9 H BUN 15 Creatinine 1.2 Estimated GFR/1.73 m2 >= 60.00 Glucose 125 H Calcium 8.7 Magnesium 1.3 L Total Bilirubin 1.1 H Conjugated Bilirubin AST 40 H ALT 72 H Alkaline Phosphatase 72 Troponin I 0.09 H* Total Protein 7.7 Albumin 3.7 TSH COVID-19 Source SARS-CoV-2 (PCR) [facility] Medical History (Updated 08/29/21 @ 01:09 by Chaz Pena) Cardiomyopathy Depression (emotion) GERD (gastroesophageal reflux disease) Hiatal hernia Hypertension LBBB (left bundle branch block) Obesity, Class III, BMI 40-49.9 (morbid obesity) Surgical History Colonoscopy - MAC (04/12/18) HERNIA REPAIR RIGHT; AGE 3 MONTHS Tonsillectomy (~1999) Family History Mother , age 73 No problems noted. Father , age 73 Diabetes Essential hypertension Stroke Maternal Grandfather , AGE 67 Heart disease Alcohol abuse Paternal Grandfather , AGE 91 Alcohol abuse Heart disease Maternal Grandmother , AGE 72 Diabetes Heart disease Paternal Grandmother Diabetes Essential hypertension Heart disease Brother Anxiety Depression Daughter Anxiety Depression Social History Smoking/Tobacco Use Status: Former Tobacco Use tobacco type: cigarettes Quit Date: 11/02/04 Tobacco: How many years used: 30 Second Hand Exposure: No Smoking risk assessment performed?: Yes Alcohol Intake: current Alcohol Intake frequency: 0-2 drinks per day Alcohol type: hard liquor Drug use: Never Substance use type: does not use Caregiver/Support person: No Household members: spouse and other Details: 2 step-grandchildren Communication Needs: None Do you need help understanding health information?: Rarely 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 Pets and animals: Yes Pets and animals: cat(s) Sexually active: Yes Do you think of yourself as: straight/heterosexual Current gender identity: male and decline to answer What is your relationship status?: How often do you talk on the phone with friends or family?: three or more times per week How often do you get together with friends or relatives?: never Do you belong to any clubs or organized social groups?: no Panel score (0-1 are the most socially isolated patients): 2 What type of physical activity do you participate in: none Silke/Restorationist: Zoroastrian Special silke needs: No Seatbelt use: always Helmet use: Yes Helmet use: always Drive intox or ride w/intox school bus driver/mechanic: No Do you feel safe at home: Yes Do you feel safe in your relationship?: Yes Victim of physical abuse: No Victim of emotional abuse: No Victim of sexual abuse: No Would you like helpful sources: No
--- NOTE | 2021-08-29 15:41 | DI.US_ITS ---
APPROVED REPORT EXAM: Comprehensive 2D, Doppler, and color-flow Echocardiogram Patient Location: In-Patient Room/Bed: 215 Nutritionalist: Kristi Cazares RDCS (AE) Indications: Bradycardia Other Information Study Quality: Fair. Technically limited study due to body habitus. Conclusion Normal left ventricular wall thickness and chamber size. Estimated ejection fraction is 45 to 50%, m ildly reduced systolic function. Septal motion suggests an interventricular conduction delay Normal right ventricular size and systolic function Both atria are normal in size Trileaflet aortic valve, leaflets mildly thickened, trace aortic regurgitation Normal mitral valve with trace regurgitation Normal tricuspid valve with trace regurgitation. Right ventricular systolic pressure could not be es timated Compared to an echocardiogram from January 25, 2021 at [facility], no significant interval change Wall motion Left Ventricle The left ventricle is normal size. Left ventricular systolic function is mildly decreased. There is n ormal left ventricular wall thickness. Regional wall motion abnormalities cannot be excluded. There i s no ventricular septal defect visualized. LVEF is 45-50%. Right Ventricle Right ventricle is grossly normal in size. Right ventricular systolic function is grossly normal. Atria The left atrium size is normal. The right atrium size is normal. The interatrial septum is intact wit h no evidence for an atrial septal defect. Aortic Valve Aortic valve leaflets are mildly thickened. Aortic valve is trileaflet. There is no aortic valvular s tenosis. Trace aortic regurgitation. Mitral Valve The mitral valve is normal in structure. No evidence of mitral valve stenosis. Trace mitral regurgita tion. Tricuspid Valve The tricuspid valve is normal in structure. There is no tricuspid valve stenosis. Trace tricuspid reg urgitation. Unable to assess PA pressure. Pulmonic Valve The pulmonary valve is normal in structure. There is no pulmonic valvular stenosis. Mild pulmonic reg urgitation. Great Vessels The aortic root is normal in size. The ascending aorta is normal in size. Aortic arch is normal in ca liber. Due to body habitus, the IVC could not be assessed. Pericardium There is no pericardial effusion. 2D Dimensions IVSD d PLAX 1.05 cm M: 0.6-1.2 LVPW d PLAX 1.02 cm M: 0.6 - 1.2 LVID d PLAX 5.25 cm M: 4.2 - 5.8 LVDs 4.10 cm M: 2.5 - 4.0 Ao Root d 3.30 cm M: 3.1 - 3.7 Ao Asc Diam d 3.23 cm M: 2.6 - 3.4 LV EF Carrillo 42.5 % FS 21.05 % M-Mode TAPSE 2.14 cm (M/F) >1.7 LV Diastology MV E' medial 0.068 (>0.07 m/s) E/A Ratio 0.9 LV E/e MED 10.95 (<14) MV E Vmax 0.74 (0.4-1.3 m/s) MV E' lateral 0.089 (>0.1 m/s) MV A Vmax 0.80 (0.4-1.3 m/s) LV E/e LAT 8.35 (<14) MV E/A Ratio 0.88 MV E/E' medial 10.99 MV E/E' lateral 8.37 Aortic Valve LVOT Area 3.40 cm2 AoV Area Vmax 2.74 cm2 LVOT Vmax 1.01 m/s AoV Area/ BSA (Vmax) 1.02 cm2/m2 LVOT Mean Jerman. 0.63 m/s HINA Mean Jerman. 2.35 cm2 LVOT Peak Grad 4.1 mmHg HINA Mean Jerman. Index 0.87 cm2/m2 LVOT Mean Grad 1.9 mmHg AR DT 2784 msec LVOT VTI 0.193 m AR PHT 807 msec LVOT Diam s 2.05 cm AoV Vmax 1.25 m/s Velocity Ratio 0.80 AoV Mean Jerman. 0.92 m/s AoV Peak Grad 6.3 mmHg LVOT SV 65.39 mL AoV Mean Grad 3.6 mmHg AoV VTI 0.239 m AoV Area VTI 2.74 cm2 AoV Area/ BSA (VTI) 1.02 cm/m2 Mitral Valve MV DT 217 (160-240 msec) MV PHT 63 msec MV Area PHT 3.49 cm2 MV VTI 0.319 m MV Area VTI 2.05 (4.0-6.0 cm2) Pulmonary Valve PV Vmax 1.19 (0.5-1.5 m/s) RVOT Peak Gr. 2.25 mmHg PV Peak Grad 5.7 mmHg RVOT Mean Gr. 1.05 mmHg PV Mean Grad 2.7 mmHg RVOT VTI 0.174 m PV VTI 0.264 m RVOT Vmax 0.75 m/s
--- NOTE | 2021-08-29 18:35 | PDOC.CMDIS ---
- If Service Date Differs Date of service: 08/29/21 Time of Service: 18:35 LACE Index Scoring Tool - Questions: Length of Stay (in days): 1 Acuity (Admit via E.D.?): Yes E.D. Visits: 2 - Answers: Total Score: 6 Risk of Readmission: Low Risk Care Management Discharge Reason for Hospitalization: Bradycardia Discharge Plan: Sarbjit will be discharged home with no new services. He will follow up with his community providers and plan of care and transport with his . Patient/Family Education Needs: Review of discharge instructions, medications, limitations, follow up plan, Ask Me Three
--- NOTE | 2021-09-01 16:05 | RESPIRATORY ---
Received 3 faxes from Arsalan Thursday morning (from events of Thursday afternoon) regarding this patient's Cardiac Event Recorder. Arsalan noted that they paged the Doctro @[phone] and spoke with nurse at 21:01. RT called pt Thursday to confirm [employer] had reached out, left VM on pt's phone.
--- NOTE | 2021-09-13 12:42 | W.CARDEVENT ---
Date of service: 09/13/21 Time of Service: 12:42 Cardiac Event Recorder Referring Provider:: Chaz Pena Indications:: Bradycardia Cardiac Event Note: This is a 30-day event monitor reportedly ordered for bradycardia There were brief periods of sinus rhythm with heart rate 70 There were multiple recordings of second-degree AV block, heart rates ranging from 40-43 Third-degree heart block was documented with heart rate in the 30s Patient symptoms of dizziness and lightheadedness corresponded to second-degree AV block and also third-degree AV block junctional escape
== END 2021-08-29 17:58 | disposition home or self-care (01) ==
LOC: ER 22:30 → MS 08-29 00:17
PROVIDERS: Admitting Provider Internal Medicine; Emergency Provider Emergency Medicine; PCP Family Medicine; Visit Provider Internal Medicine
DX: R00.1 Bradycardia, unspecified (principal); I44.7 Left bundle-branch block, unspecified; I42.9 Cardiomyopathy, unspecified; E11.9 Type 2 diabetes mellitus without complications; F32.A Depression, unspecified; K21.9 Gastro-esophageal reflux disease without esophagitis; K44.9 Diaphragmatic hernia without obstruction or gangrene; E66.01 Morbid (severe) obesity due to excess calories; Z68.41 Body mass index [BMI] 40.0-44.9, adult; Z79.84 Long term (current) use of oral hypoglycemic drugs
CPT/HCPCS: 36415; 36416; 80048; 80053; 80076; 82962; 87635; 90686; 93005; 93270; 96365; 96366; 99285; J1650; 83735; 84443; 84484; 85025; 93010; 93306; 99217; 99219; G0378

== ENCOUNTER 2021-08-31 01:55 | Observation (INO) | payer OTHER, SELFPAY ==
[2021-08-31] VITALS (130 sets, daily range): BP systolic 98–158; BP diastolic 34–102; PULSE 32–124; RESP 12–31; TEMP 36.1–36.4; O2SAT 91–98
--- NOTE | 2021-08-31 01:45 | RT.EKG_ITS ---
APPROVED REPORT Exam: Resting ECG Reason for Exam: bradycardia Patient Location: E HR:41 bpm ECG Measurements Heart Rate 41 AXIS NE 194 P 32 QRSd 157 QRS 4 QT 508 T 164 QTc 422 Conclusion Sinus bradycardia...rate< 60 Left bundle branch block...QRSd>120, broad/notched Disagree - This is Mobitz 2 with 2 to 1 conduction with p wave buried in t wave. LBBB Normal [place]
--- NOTE | 2021-08-31 01:58 | ED.GENADUL_ITS ---
Discharge Plan Disposition Patient Disposition: [facility] INPATIENT Condition: Stable Discharge Details Clinical Impression: Atrioventricular block, Mobitz type 2 Primary Care Provider: Stew Gentile ED Provider: Brad Chaudhry [place] Meds and New Rx's Prescriptions: No Action omega-3 fatty acids [Fish Oil Concentrate] 1,000 mg capsule 1,000 mg PO DAILY RF: 0 aspirin [Adult Aspirin Regimen] 81 mg tablet,delayed release (DR/EC) 81 mg PO DAILY RF: 0 furosemide 40 mg tablet 40 mg PO BID RF: 0 allopurinol 100 mg tablet 200 mg PO DAILY Qty: 90 RF: 2 atorvastatin 40 mg tablet 40 mg PO QHS RF: 0 valsartan 160 mg tablet 160 mg PO DAILY Qty: 90 RF: 3 fluticasone propionate 50 mcg/actuation spray,suspension 50 mcg NS DAILY Qty: 3 RF: 4 (DME) Accu-Chek Guide test strips Strip See Rx Instructions .ROUTE .MEDSUPPLY Qty: 200 RF: 5 (DME) FreeStyle Edvin 14 Day Percival Misc See Rx Instructions .ROUTE .MEDSUPPLY Qty: 1 RF: 4 (DME) FreeStyle Edvin 14 Day Sensor Kit See Rx Instructions .ROUTE .MEDSUPPLY Qty: 6 RF: 4 Rybelsus 7 mg tablet 7 mg PO DAILY Qty: 90 RF: 2 metformin 500 mg tablet extended release 24 hr 1,000 mg PO BID Qty: 360 RF: 4 magnesium 500 mg Tablet 1,000 mg PO DAILY RF: 0 multivitamin 1 EACH capsule 1 tab PO DAILY RF: 0 omeprazole 10 mg Capsule,Delayed Release(Dr/Ec) 10 mg PO BID RF: 0 carvedilol [Coreg] 12.5 mg tablet 6.25 mg PO BID Qty: 0 RF: 0 Medical Decision Making Patient's ECHO done prior to discharge unchanged from previous. There are readings from his business operations director uploaded into the computer. The last 3 from this evening clearly show a Mobitz type II block with 2 - 1 conduction. Heart rate is low at 30 on a couple of strips. EKG done tonight appears to be sinus bradycardia, however, there clearly are P waves buried within the T waves of the QRS complex. Therefore, I believe this is Mobitz type II with 2-1 conduction as seen on his strip from his business operations director. Patient is asymptomat ic. Pacer pads applied but pacemaker not turned on. Atropine to the room. IV obtain and repeat laboratory studies sent. Call placed to [facility] to speak to cardiology. Patient's troponin remains around 0.1 level that he has been at. Potassium on the low end of normal so given 40 orally. Magnesium is fine. No change in patient status. Case discussed with cardiology and patient accepted to [facility] under Dr. Matthew later today when bed available. Case discussed with hospitalist here to admit upstairs until transfer to [facility] later today. Advise to keep pacer pads in place and atropine in the room. Hold carvedilol. Patient and aware of diagnosis and need for transfer and likely need for pacer. Medical Records Medical records reviewed: Yes I reviewed the patient's medical records. Lab Data Lab results reviewed: Yes I reviewed the patient's lab results. ECG Data Attestation: I personally reviewed and interpreted this ECG (s) as follows: Prior ECG tracings: available for review Interpretation: see EKG HPI General Mode of arrival: ambulatory . Date/Time Provider Initiated Documentation: 08/31/21 01:56 . Limitations to Documentation: no limitations . Information obtained by: patient, RN notes reviewed and old records reviewed . HPI Narrative: Patient returns to ED with weakness and dyspnea on exertion. Patient admitted overnight Thursday into for same symptoms. Was bradycardic and carvedilol was held. cold header operator placed and ECHO done prior to discharge. Patient restarted on half dose carvedilol. He took this Thursday morning. He did not take it Thursday evening. On Thursday evening he was symptomatic again with dyspnea on exertion and weakness. No chest pain or pressure. No syncope. Called the on-call physician around 10 but did not hear back. Patient had on- call physician contacted again and this time did call patient who was referred to the ED. Related Data Home Medications Medication Instructions Recorded Confirmed multivitamin 1 tab PO DAILY 04/12/18 08/31/21 omega-3 fatty acids 1,000 mg 1,000 mg PO DAILY 10/19/18 08/31/21 capsule valsartan 160 mg tablet 160 mg PO DAILY #90 tab 12/27/18 08/31/21 aspirin 81 mg tablet,delayed 81 mg PO DAILY 06/29/19 08/31/21 release fluticasone propionate 50 50 mcg NS DAILY #3 bottle 02/08/20 08/31/21 mcg/actuation nasal spray,suspension furosemide 40 mg tablet 40 mg PO BID tab 06/25/20 08/31/21 atorvastatin 40 mg tablet 40 mg PO QHS 10/02/20 08/31/21 blood sugar diagnostic #200 ea 10/15/20 04/03/21 flash glucose scanning reader #1 ea 11/08/20 04/03/21 flash glucose sensor #6 ea 11/08/20 04/03/21 magnesium 1,000 mg PO DAILY 12/19/20 08/31/21 allopurinol 100 mg tablet 200 mg PO DAILY #90 tab 04/03/21 08/31/21 semaglutide 7 mg tablet 7 mg PO DAILY #90 tab 04/26/21 08/31/21 metformin 500 mg tablet,extended 1,000 mg PO BID #360 tab 05/13/21 08/31/21 release 24 hr omeprazole 10 mg PO BID 08/28/21 08/31/21 carvedilol [Coreg] 6.25 mg PO BID #0 tab 08/29/21 08/31/21 Previous Rx's Medication Instructions Recorded valsartan 160 mg tablet 160 mg PO DAILY #90 tab 12/27/18 fluticasone propionate 50 50 mcg NS DAILY #3 bottle 02/08/20 mcg/actuation nasal spray,suspension blood sugar diagnostic #200 ea 10/15/20 flash glucose scanning reader #1 ea 11/08/20 flash glucose sensor #6 ea 11/08/20 allopurinol 100 mg tablet 200 mg PO DAILY #90 tab 04/03/21 semaglutide 7 mg tablet 7 mg PO DAILY #90 tab 04/26/21 metformin 500 mg tablet,extended 1,000 mg PO BID #360 tab 05/13/21 release 24 hr carvedilol [Coreg] 6.25 mg PO BID #0 tab 08/29/21 Allergies Allergy/AdvReac Type Severity Reaction Status Date / Time lisinopril AdvReac Mild cough Verified 08/31/21 02:05 General MARCO ANTONIO: 3 Review of Systems Narrative: 08/15 Review of Systems completed and is negative except as stated above in HPI (Systems reviewed: Const, Eyes, ENT, Resp, CV, GI, , MSK, Skin, Neuro) PFSH Medical History Cardiomyopathy Depression (emotion) GERD (gastroesophageal reflux disease) Hiatal hernia Hypertension LBBB (left bundle branch block) Obesity, Class III, BMI 40-49.9 (morbid obesity) Surgical History Colonoscopy - MAC (04/12/18) HERNIA REPAIR RIGHT; AGE 3 MONTHS Tonsillectomy (~1999) Family History Mother , age 73 No problems noted. Father , age 73 Diabetes Essential hypertension Stroke Maternal Grandfather , AGE 67 Heart disease Alcohol abuse Paternal Grandfather , AGE 91 Alcohol abuse Heart disease Maternal Grandmother , AGE 72 Diabetes Heart disease Paternal Grandmother Diabetes Essential hypertension Heart disease Brother Anxiety Depression Daughter Anxiety Depression Social History Smoking/Tobacco Use Status: Former Tobacco Use tobacco type: cigarettes Quit Date: 11/02/04 Tobacco: How many years used: 30 Second Hand Exposure: No Smoking risk assessment performed?: Yes Alcohol Intake: current Alcohol Intake frequency: 0-2 drinks per day Alcohol type: hard liquor Drug use: Never Substance use type: does not use Caregiver/Support person: No Household members: spouse and other Details: 2 step-grandchildren Communication Needs: None Do you need help understanding health information?: Rarely 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 Pets and animals: Yes Pets and animals: cat(s) Sexually active: Yes Do you think of yourself as: straight/heterosexual Current gender identity: male and decline to answer What is your relationship status?: How often do you talk on the phone with friends or family?: three or more times per week How often do you get together with friends or relatives?: never Do you belong to any clubs or organized social groups?: no Panel score (0-1 are the most socially isolated patients): 2 What type of physical activity do you participate in: none Silke/Roman Catholic: Latter-Day Special silke needs: No Seatbelt use: always Helmet use: Yes Helmet use: always Drive intox or ride w/intox delivery driver: No Do you feel safe at home: Yes Do you feel safe in your relationship?: Yes Victim of physical abuse: No Victim of emotional abuse: No Victim of sexual abuse: No Would you like helpful sources: No Exam Narrative Exam Narrative: Const: Obese male in NAD. HEENT: NC/AT. Normal facial exam. Eyes: Normal conjunctiva and sclera. Neck: Supple. Trachea midline. Lungs: Normal respiratory effort. Lungs are clear. Cor: RRR without murmur/gallop. Manohar. Good radial pulses. GI: Soft. NT/ND. Neuro: A+O x 3. Normal speech, mentation, gait. Cranial nerves II - XII grossly intact. No gross motor or sensory deficit. Ext: No C/C/E. Skin: Warm and dry without rash.
[2021-08-31 02:21] LABS: Abs Immature Grans 0.02 10^3/uL (0.0-0.06); Absolute Basophil Count 0.05 10^3/uL (0.0-0.2); Absolute Eosinophil Count 0.16 10^3/uL (0.0-0.7); Absolute Lymphocyte Count 2.08 10^3/uL (1.2-3.4); Absolute Monocyte Count 0.69 10^3/uL (0.1-0.8); Absolute Neutrophil Count 4.28 10^3/uL (1.2-6.7); Basophils % 0.7; Eosinophils % 2.2; HCT 44.2 % (40.0-50.0); HGB 13.8 g/dL (13.5-17.5); Immature Grans % 0.3; Lymphocytes % 28.6; MCH 30.7 pg (27.0-33.0); MCHC 31.2 % (32.0-36.0); MCV 98.4 fL (80-95); MPV 11.2 fL (8.0-11.0); Monocytes % 9.5; Neutrophils % 58.7; Nucleated RBC 0 %; Platelet Count 206 10^3/uL (130-400); RBC 4.49 10^6/uL (4.36-5.78); RDW 13.7 % (11.8-14.1); RDW-SD 49.4 fL; WBC 7.28 10^3/uL (4.4-10.8)
[2021-08-31] MEDS: Normal Saline 1,000 ML 125 ML IV (02:22)
[2021-08-31 02:31] LABS: Anion Gap 7.7 mmol/L (3-11); BUN 18 mg/dL (7-18); CO2 30.3 mmol/L (21.0-32.0); CREATININE 1.3 mg/dL (0.70-1.30); Calcium 8.8 mg/dL (8.5-10.1); Chloride 107 mmol/L (98-107); Estimated GFR 57.97 (mL/min/1.73m2); Glucose 105 mg/dL (74-106); Magnesium 1.9 mg/dL (1.8-2.4); Potassium 3.5 mmol/L (3.5-5.1); Sodium 145 mmol/L (136-145)
--- NOTE | 2021-08-31 02:40 | NUR.NOTE ---
Lab calls critical troponin; 0.12; Dr. Chaudhry notified.Nursing Note:
[2021-08-31 02:41] LABS: Troponin I 0.12 ng/mL (<0.06)
[2021-08-31] MEDS: Potassium Chloride 20 MEQ TABCR 40 MEQ PO (02:57)
[2021-08-31 03:09] LABS: Source Nasal/Nares
--- NOTE | 2021-08-31 04:20 | NUR.NOTE ---
0400-Patient taken to MedSurg unit per cart, by this RN. Upon arrival to floor, Eneida, discharge specialist, reports vat house supervisor en route to discuss patient placement. Plan to take patient back to ED per Med Surg request.Nursing Note:
--- NOTE | 2021-08-31 04:28 | NUR.NOTE ---
Patient back to ED room 3. Non slip socks applied. Ambulates to restroom with steady gait. Voids independently. Continues to deny chest pain or dizziness. Vital signs as charted. CPAP set up, spouse notified, warm blankets provided. Lights dimmed to promote rest. Patient verbalizes understanding and agreement with plan of care. Awaiting bed placement at [facility]. Bed in lowest, locked position. Side rails up x2. Call light in reach.Nursing Note:
--- NOTE | 2021-08-31 05:30 | NUR.NOTE ---
Patient resting with eyes closed; appears sleeping. Awakens easily on rounds. Denies needs. IV fluids infusing per order. CPAP in place. Call light in reach.Nursing Note:
[2021-08-31 06:29] LABS: COVID-19 PCR Negative (Negative)
--- NOTE | 2021-08-31 06:36 | NUR.NOTE ---
Patient resting with eyes closed; appears sleeping. Awakens easily on rounds. Denies needs. IV fluids infusing per order. CPAP in place. Call light in reach.Nursing Note:
--- NOTE | 2021-08-31 06:55 | NUR.NOTE ---
Report to BERKLEY Stevenson for continued careNursing Note:
--- NOTE | 2021-08-31 06:57 | NUR.NOTE ---
Lab calls critical troponin result; 0.1Nursing Note:
--- NOTE | 2021-08-31 07:45 | W.PM.HP.N ---
Date of service: 08/31/21 Time of Service: 07:45 Assessment and Plan Assessment and plan (1) Atrioventricular block, Mobitz type 2: Status: Acute Assessment and plan: Continue to withhold carvedilol. External pacer pads have been placed and atropine has been placed at the bedside. [facility] has been consulted last night and patient is tentatively been accepted for transfer soon as a bed becomes available. (2) Bradycardia, sinus: Status: Acute Assessment and plan: As above (3) DM type 2 (diabetes mellitus, type 2): Status: Acute Assessment and plan: Monitor blood sugars every 6 hours and cover with low-dose sliding scale. Qualifiers: Diabetes mellitus mcfp insulin use: without terminal operations supervisor use Diabetes mellitus complication status: without complication Qualified Code(s): E11.9 - Type 2 diabetes mellitus without complications (4) LBBB (left bundle branch block): Status: Chronic (5) Cardiomyopathy: Status: Chronic Assessment and plan: Because of his low heart rate and low blood pressure his valsartan and furosemide have been held. Carvedilol is on hold due to his second-degree AV block. Qualifiers: Cardiomyopathy type: unspecified Qualified Code(s): I42.9 - Cardiomyopathy, unspecified (6) Gastroesophageal reflux disease with esophagitis: Status: Acute Assessment and plan: We will provide IV Protonix while he is n.p.o. Once he is able to take oral medicines will resume his omeprazole. 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 He was monitored overnight and his carvediloll was held. Serial troponins were performed and he ruled out for [place]. He was discharged home on half his usual dose of carvedilol (dose reduced from 12.5 mg bid to 6.25 mg bid). He states that he took half his dose yesterday morning but continues to have fatigue, dyspnea, but no CP, and lightheadedness. He states that his pulse was too slow for his FitBit to register but he has a BP cuff and pulse oximeter and noted his pulse to be as low as 32. Dr. Chaudhry, ER attending spoke w/ [facility] cardiology about transfer for what appears to be a Mobitz type II 2nd degree AV block. This is documented on his holter strips. EKG demonstrates SB rate of 41 w/ LBBB. [facility] has accepted the patient but d/t no beds last night they indicated that they will take him later today. External pacer pads were placed on him by the ER and atropine has been kept at the bedside. Review of Systems All systems reviewed & are unremarkable except as noted in HPI and below [facility] Medical History (Updated 08/31/21 @ 10:50 by Chaz Pena) Cardiomyopathy last echo 08/29/2021; LVEF 45-50%, septal wall motion abnormality c/w IVCD, normal RV function/size, no hemodynamically significant valvular abnormalities Depression (emotion) GERD (gastroesophageal reflux disease) Hiatal hernia Hypertension LBBB (left bundle branch block) Obesity, Class III, BMI 40-49.9 (morbid obesity) Surgical History Colonoscopy - MAC (04/12/18) HERNIA REPAIR RIGHT; AGE 3 MONTHS Tonsillectomy (~1999) Family History Mother , age 73 No problems noted. Father , age 73 Diabetes Essential hypertension Stroke Maternal Grandfather , AGE 67 Heart disease Alcohol abuse Paternal Grandfather , AGE 91 Alcohol abuse Heart disease Maternal Grandmother , AGE 72 Diabetes Heart disease Paternal Grandmother Diabetes Essential hypertension Heart disease Brother Anxiety Depression Daughter Anxiety Depression Social History Smoking/Tobacco Use Status: Former Tobacco Use tobacco type: cigarettes Quit Date: 11/02/04 Tobacco: How many years used: 30 Second Hand Exposure: No Smoking risk assessment performed?: Yes Alcohol Intake: current Alcohol Intake frequency: 0-2 drinks per day Alcohol type: hard liquor Drug use: Never Substance use type: does not use Caregiver/Support person: No Household members: spouse and other Details: 2 step-grandchildren Communication Needs: None Do you need help understanding health information?: Rarely 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 Pets and animals: Yes Pets and animals: cat(s) Sexually active: Yes Do you think of yourself as: straight/heterosexual Current gender identity: male and decline to answer What is your relationship status?: How often do you talk on the phone with friends or family?: three or more times per week How often do you get together with friends or relatives?: never Do you belong to any clubs or organized social groups?: no Panel score (0-1 are the most socially isolated patients): 2 What type of physical activity do you participate in: none Silke/Evangelical: Episcopal Special silke needs: No Seatbelt use: always Helmet use: Yes Helmet use: always Drive intox or ride w/intox pizza delivery driver: No Do you feel safe at home: Yes Do you feel safe in your relationship?: Yes Victim of physical abuse: No Victim of emotional abuse: No Victim of sexual abuse: No Would you like helpful sources: No Meds Allergies and Home Medications Allergies Allergy/AdvReac Type Severity Reaction Status Date / Time lisinopril AdvReac Mild cough Verified 08/31/21 02:05 Home Medications Medication Instructions Recorded Confirmed Type multivitamin 1 tab PO DAILY 04/12/18 08/31/21 History omega-3 fatty acids 1,000 mg 1,000 mg PO DAILY 10/19/18 08/31/21 History capsule valsartan 160 mg tablet 160 mg PO DAILY #90 tab 12/27/18 08/31/21 Rx aspirin 81 mg tablet,delayed 81 mg PO DAILY 06/29/19 08/31/21 History release fluticasone propionate 50 50 mcg NS DAILY #3 bottle 02/08/20 08/31/21 Rx mcg/actuation nasal spray,suspension furosemide 40 mg tablet 40 mg PO BID tab 06/25/20 08/31/21 History atorvastatin 40 mg tablet 40 mg PO QHS 10/02/20 08/31/21 History blood sugar diagnostic #200 ea 10/15/20 04/03/21 Rx flash glucose scanning reader #1 ea 11/08/20 04/03/21 Rx flash glucose sensor #6 ea 11/08/20 04/03/21 Rx magnesium 1,000 mg PO DAILY 12/19/20 08/31/21 History allopurinol 100 mg tablet 200 mg PO DAILY #90 tab 04/03/21 08/31/21 Rx semaglutide 7 mg tablet 7 mg PO DAILY #90 tab 04/26/21 08/31/21 Rx metformin 500 mg tablet,extended 1,000 mg PO BID #360 tab 05/13/21 08/31/21 Rx release 24 hr omeprazole 10 mg PO BID 08/28/21 08/31/21 History carvedilol [Coreg] 6.25 mg PO BID #0 tab 08/29/21 08/31/21 Rx Exam Narrative Exam Narrative: Middle-aged morbidly obese male lying supine in the emergency department. He is wearing his CPAP mask in no acute respiratory distress. Heart rhythm appears to be sinus bradycardia in the low to mid 40s. During the time I interviewed him I did not see any sustained pauses. HEENT unremarkable Neck obese supple nontender no JVD normal carotid pulses no bruits no thyromegaly no cervical lymphadenopathy. Chest is barrel chested. Lungs are clear. Heart tones are distant and bradycardic no appreciable murmur rub or gallop Abdomen is obese soft nontender nondistended normal active bowel sounds no palpable masses no bruits Lower extremities without peripheral cyanosis or edema no calf tenderness or swelling. Upper extremities without edema. Neuro exam grossly intact no focal motor or sensory deficits no focal cranial nerve abnormalities. Genitalia and rectal exam deferred Results Labs Result diagrams: 08/31/21 02:12 08/31/21 02:12 Labs: Laboratory Results - last 24 hr 08/31/21 08/31/21 08/31/21 02:12 02:12 02:12 WBC 7.28 RBC 4.49 Hgb 13.8 Hct 44.2 MCV 98.4 H MCH 30.7 MCHC 31.2 L RDW 13.7 Plt Count 206 MPV 11.2 H Immature Gran % 0.3 Neutrophils % 58.7 Lymphocytes % 28.6 Monocytes % 9.5 Eosinophils % 2.2 Basophils % 0.7 Nucleated RBC % 0 Absolute Neutrophils 4.28 Absolute Lymphocytes 2.08 Absolute Monocytes 0.69 Absolute Eosinophils 0.16 Absolute Basophils 0.05 Sodium 145 Potassium 3.5 Chloride 107 Carbon Dioxide 30.3 Anion Gap 7.7 BUN 18 Creatinine 1.3 Estimated GFR/1.73 m2 57.97 Glucose 105 Calcium 8.8 Magnesium 1.9 Troponin I 0.12 H* COVID-19 Source SARS-CoV-2 (PCR) 08/31/21 08/31/21 03:00 06:35 WBC RBC Hgb Hct MCV MCH MCHC RDW Plt Count MPV Immature Gran % Neutrophils % Lymphocytes % Monocytes % Eosinophils % Basophils % Nucleated RBC % Absolute Neutrophils Absolute Lymphocytes Absolute Monocytes Absolute Eosinophils Absolute Basophils Sodium Potassium Chloride Carbon Dioxide Anion Gap BUN Creatinine Estimated GFR/1.73 m2 Glucose Calcium Magnesium Troponin I 0.10 H* COVID-19 Source Nasal/Nares SARS-CoV-2 (PCR) Negative Last Vital Signs Temp 36.2 C L 08/31/21 04:36 Pulse 42 L 08/31/21 06:46 Resp 20 08/31/21 06:50 BP 130/57 L 08/31/21 06:46 Pulse Ox 93 08/31/21 06:50
--- NOTE | 2021-08-31 10:01 | NUR.NOTE ---
informed that his covid is negative.Nursing Note:
--- NOTE | 2021-08-31 11:03 | NUR.NOTE ---
Pt. up to chair and drinking ice water.Nursing Note:
--- NOTE | 2021-08-31 15:28 | DSE_ITS ---
Date of service: 08/31/21 Time of Service: 15:29 DS: Diagnosis Discharge Diagnosis (1) Atrioventricular block, Mobitz type 2: Status: Acute Asessment and Plan: Carvedilol discontinued. Patient continues to be monitored and wears external pacer pads and has atropine at the bedside. Plans for transfer to [facility] this afternoon to the service of Dr. Matthew. (2) Bradycardia, sinus: Status: Acute Asessment and Plan: Carvedilol discontinued. He remains in sinus mirza cardia with left bundle branch block with heart rates in the 30s. Patient to be transferred to cardiology at [facility] for EP service to evaluate (3) DM type 2 (diabetes mellitus, type 2): Status: Acute Asessment and Plan: metformin and semaglutide held and glucose was monitored throughout his hospital stay. 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 He was monitored overnight and his carvediloll was held. Serial troponins were performed and he ruled out for [place]. He was discharged home on half his usual dose of carvedilol (dose reduced from 12.5 mg bid to 6.25 mg bid). He states that he took half his dose yesterday morning but continues to have fatigue, dyspnea, but no CP, and lightheadedness. He states that his pulse was too slow for his FitBit to register but he has a BP cuff and pulse oximeter and noted his pulse to be as low as 32. Dr. Chaudhry, ER attending spoke w/ [facility] cardiology about transfer for what appears to be a Mobitz type II 2nd degree AV block. This is documented on his holter strips. EKG demonstrates SB rate of 41 w/ LBBB. [facility] has accepted the patient but d/t no beds last night they indicated that they will take him later today. External pacer pads were placed on him by the ER and atropine has been kept at the bedside. Patient has sustained bradycardia with heart rates in the upper 30s however rhythm now appears to be sinus bradycardia with a left bundle branch block. He has had a external pacer pad attached since he arrived to the emergency department but has not required any atropine or any inotropic medications. Blood pressures remained stable. His carvedilol was discontinued upon admission. Patient has been accepted for transfer to [facility] to the cardiology service of Dr. Catrachito Matthew. Home Meds and New Rx's Prescriptions: Discontinued carvedilol [Coreg] 12.5 mg tablet 6.25 mg PO BID Qty: 0 RF: 0 No Action omega-3 fatty acids [Fish Oil Concentrate] 1,000 mg capsule 1,000 mg PO DAILY RF: 0 aspirin [Adult Aspirin Regimen] 81 mg tablet,delayed release (DR/EC) 81 mg PO DAILY RF: 0 furosemide 40 mg tablet 40 mg PO BID RF: 0 allopurinol 100 mg tablet 200 mg PO DAILY Qty: 90 RF: 2 atorvastatin 40 mg tablet 40 mg PO QHS RF: 0 valsartan 160 mg tablet 160 mg PO DAILY Qty: 90 RF: 3 fluticasone propionate 50 mcg/actuation spray,suspension 50 mcg NS DAILY Qty: 3 RF: 4 (DME) Accu-Chek Guide test strips Strip See Rx Instructions .ROUTE .MEDSUPPLY Qty: 200 RF: 5 (DME) FreeStyle Edvin 14 Day [place] Misc See Rx Instructions .ROUTE .MEDSUPPLY Qty: 1 RF: 4 (DME) FreeStyle Edvin 14 Day Sensor Kit See Rx Instructions .ROUTE .MEDSUPPLY Qty: 6 RF: 4 Rybelsus 7 mg tablet 7 mg PO DAILY Qty: 90 RF: 2 metformin 500 mg tablet extended release 24 hr 1,000 mg PO BID Qty: 360 RF: 4 magnesium 500 mg Tablet 1,000 mg PO DAILY RF: 0 multivitamin 1 EACH capsule 1 tab PO DAILY RF: 0 omeprazole 10 mg Capsule,Delayed Release(Dr/Ec) 10 mg PO BID RF: 0 Discharge Instructions Instructions: Heart Block (DC) Additional Instructions: Your remaining medications will be reconciled by your physicians at [facility] upon discharge from [facility]. Activity:: bedrest Equipment/Supplies:: No Equipment Needed Diet:: Normal Diet Discharge Orders Discharge Orders: Discharge Order (Routine); Ordered 08/31/21 Ordered By: Chaz Pena DS: Summary Time Spent with Patient providing and/or coordinating discharge services: Greater than 30 minutes Status at Discharge Functional status at discharge: bed bound Overall status at discharge: patient is not back to baseline Mental Status: mental status grossly normal Speech and Movement: speech and movement normal Mood: congruent mood Affect: normal affect Exam Psych Mental Status: mental status grossly normal Speech and Movement: speech and movement normal Mood: congruent mood Affect: normal affect DS: Data Vitals/I&O Vitals and I&O: Vital Signs Temperature 36.1 C L 08/31/21 14:26 Temperature Source Temporal Artery Scan 08/31/21 14:26 Pulse 40 L 08/31/21 14:26 Pulse 45 L 08/31/21 13:00 Respiratory Rate 21 08/31/21 14:26 Respiratory Effort 08/31/21 14:26 Respiratory Depth Normal 08/31/21 14:26 Respiratory Pattern Normal 08/31/21 14:26 Blood Pressure 124/57 L 08/31/21 14:26 Blood Pressure Mean 79 08/31/21 14:26 Blood Pressure Position Supine 08/31/21 14:26 Pulse Oximetry 96 08/31/21 14:26 Oxygen Delivery Method Room Air 08/31/21 14:26 Oxygen Flow Rate 0 08/31/21 14:26 Pain Level 0 08/31/21 14:26 Intake & Output 08/30/21 08/31/21 08/31/21 23:59 11:59 23:59 Intake Total 1000 / 1100 100 / 1100 Output Total 300 / 300 Balance 700 / 800 100 / 800 Weight 157 kg 153 kg Intake: IV 1000 / 1000 Oral 100 / 100 Output: Urine 300 / 300 Data Completed and Pending Labs on day of discharge: Labs from last 24 hours 08/31/21 08/31/21 08/31/21 06:35 03:00 02:12 WBC 7.28 RBC 4.49 Hgb 13.8 Hct 44.2 MCV 98.4 H MCH 30.7 MCHC 31.2 L RDW 13.7 Plt Count 206 MPV 11.2 H Immature Gran % 0.3 Neutrophils % 58.7 Lymphocytes % 28.6 Monocytes % 9.5 Eosinophils % 2.2 Basophils % 0.7 Nucleated RBC % 0 Absolute Neutrophils 4.28 Absolute Lymphocytes 2.08 Absolute Monocytes 0.69 Absolute Eosinophils 0.16 Absolute Basophils 0.05 Sodium Potassium Chloride Carbon Dioxide Anion Gap BUN Creatinine Estimated GFR/1.73 m2 Glucose Calcium Magnesium Troponin I 0.10 H* COVID-19 Source Nasal/Nares SARS-CoV-2 (PCR) Negative 08/31/21 08/31/21 02:12 02:12 WBC RBC Hgb Hct MCV MCH MCHC RDW Plt Count MPV Immature Gran % Neutrophils % Lymphocytes % Monocytes % Eosinophils % Basophils % Nucleated RBC % Absolute Neutrophils Absolute Lymphocytes Absolute Monocytes Absolute Eosinophils Absolute Basophils Sodium 145 Potassium 3.5 Chloride 107 Carbon Dioxide 30.3 Anion Gap 7.7 BUN 18 Creatinine 1.3 Estimated GFR/1.73 m2 57.97 Glucose 105 Calcium 8.8 Magnesium 1.9 Troponin I 0.12 H* COVID-19 Source SARS-CoV-2 (PCR) [facility] Medical History Cardiomyopathy last echo 08/29/2021; LVEF 45-50%, septal wall motion abnormality c/w IVCD, normal RV function/size, no hemodynamically significant valvular abnormalities Depression (emotion) GERD (gastroesophageal reflux disease) Hiatal hernia Hypertension LBBB (left bundle branch block) Obesity, Class III, BMI 40-49.9 (morbid obesity) Surgical History Colonoscopy - MAC (04/12/18) HERNIA REPAIR RIGHT; AGE 1 MONTHS Tonsillectomy (~1999) Family History Mother , age 73 No problems noted. Father , age 73 Diabetes Essential hypertension Stroke Maternal Grandfather , AGE 67 Heart disease Alcohol abuse Paternal Grandfather , AGE 91 Alcohol abuse Heart disease Maternal Grandmother , AGE 72 Diabetes Heart disease Paternal Grandmother Diabetes Essential hypertension Heart disease Brother Anxiety Depression Daughter Anxiety Depression Social History Smoking/Tobacco Use Status: Former Tobacco Use tobacco type: cigarettes Quit Date: 11/02/04 Tobacco: How many years used: 30 Second Hand Exposure: No Smoking risk assessment performed?: Yes Alcohol Intake: current Alcohol Intake frequency: 0-2 drinks per day Alcohol type: hard liquor Drug use: Never Substance use type: does not use Caregiver/Support person: No Household members: spouse and other Details: 2 step-grandchildren Communication Needs: None Do you need help understanding health information?: Rarely 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 Pets and animals: Yes Pets and animals: cat(s) Sexually active: Yes Do you think of yourself as: straight/heterosexual Current gender identity: male and decline to answer What is your relationship status?: How often do you talk on the phone with friends or family?: three or more times per week How often do you get together with friends or relatives?: never Do you belong to any clubs or organized social groups?: no Panel score (0-1 are the most socially isolated patients): 2 What type of physical activity do you participate in: none Silke/Advent: [employer] Special silke needs: No Seatbelt use: always Helmet use: Yes Helmet use: always Drive intox or ride w/intox race car driver: No Do you feel safe at home: Yes Do you feel safe in your relationship?: Yes Victim of physical abuse: No Victim of emotional abuse: No Victim of sexual abuse: No Would you like helpful sources: No
--- NOTE | 2021-08-31 15:57 | INITIAL_ITS ---
- If Service Date Differs Date of service: 08/31/21 Time of Service: 15:57 Care Management Initial Assess REASON FOR HOSPITALIZATION:: Atrioventricular block, Mobitz type 2, Sinus Bradycardia PAST MEDICAL HISTORY/PAST SURGICAL HISTORY:: Medical History (Updated 08/31/21 @ 10:50 by Chaz Pena). Cardiomyopathy. last echo 08/29/2021; LVEF 45-50%, septal wall motion abnormality c/w IVCD, normal RV function/size, no hemodynamically significant valvular abnormalities. Depression (emotion). GERD (gastroesophageal reflux disease). Hiatal hernia. Hypertension. LBBB (left bundle branch block). Obesity, Class III, BMI 40-49.9 (morbid obesity). Young rgical History . Colonoscopy - MAC (04/12/18). HERNIA REPAIR. RIGHT; AGE 3 MONTHS. Tonsillectomy (~1999) PREVIOUS FUNCTIONAL STATUS/SOCIAL/FAMILY SUPPORTS:: Sarbjit, as Jeff likes to be called, lives in [place] with his Thi. 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 Sarbjit has one daughter and Thi has a son and a daughter and all are close and supportive. Sarbjit is independent at baseline and receives no community services. CURRENT FUNCTIONAL STATUS:: Jeff transferred to [facility] Cardiology services before had a chance to meet with him. ADVANCE DIRECTIVES:: None on file Has patient been provided with info about the portal/API?: Yes Did the patient sign up for the portal?: Yes CODE STATUS:: Full Code INSURANCE COVERAGE / FINANCIAL ISSUES:: Maria Dolores CURRENT HOME/COMMUNITY SERVICES/EQUIPMENT:: None PRIMARY CARE PHYSICIAN:: Stew Gentile PATIENT/FAMILY EDUCATION NEEDS:: Discuss patients disposition to [facility], ask me three. TRANSPORTATION:: Via EMS arranged by nursing insurance office supervisor. PLAN:: Patient has been accepted for transfer to [facility] to the cardiology service of Dr. Catrachito Matthew. Will transport via EMS arranged by nursing insurance office supervisor.
--- NOTE | 2021-08-31 16:09 | CMDISCH_ITS ---
- If Service Date Differs Date of service: 08/31/21 Time of Service: 16:09 LACE Index Scoring Tool - Questions: Length of Stay (in days): 1 Acuity (Admit via E.D.?): Yes Comorbidities: Congestive Heart Failure E.D. Visits: 3 - Answers: Total Score: 9 Risk of Readmission: Low Risk Care Management Discharge Reason for Hospitalization: Atrioventricular block, Mobitz type 2, Sinus Bradycardia Discharge Plan: Patient has been accepted and will transfer to [facility] to the cardiology service of Dr. Catrachito Matthew. Will transport via EMS arranged by nursing supervisor car and yard. Patient/Family Education Needs: Discuss patients disposition to [facility], ask me three. Services Needed at Discharge: Transportation (via EMS arranged by nursing supervisor car and yard)
== END 2021-08-31 16:45 | disposition short-term general hospital (02) ==
LOC: ER 03:25 → ICU 13:55
PROVIDERS: Admitting Provider Internal Medicine; Emergency Provider Emergency Medicine; PCP Family Medicine; Visit Provider Internal Medicine
DX: I44.1 Atrioventricular block, second degree (principal); R00.1 Bradycardia, unspecified; E11.9 Type 2 diabetes mellitus without complications; K21.00 Gastro-esophageal reflux disease with esophagitis, without bleeding; I15.2 Hypertension secondary to endocrine disorders; I44.7 Left bundle-branch block, unspecified; I42.8 Other cardiomyopathies; R53.83 Other fatigue; R06.00 Dyspnea, unspecified; R42 Dizziness and giddiness; F32.A Depression, unspecified; K44.9 Diaphragmatic hernia without obstruction or gangrene; Z68.42 Body mass index [BMI] 45.0-49.9, adult; E66.01 Morbid (severe) obesity due to excess calories; Z87.891 Personal history of nicotine dependence; Z20.822 Contact with and (suspected) exposure to COVID-19; Z79.84 Long term (current) use of oral hypoglycemic drugs
CPT/HCPCS: 36415; 80048; 87635; 93005; 99285; 83735; 84484; 85025; 93010; 99219; G0378

== ENCOUNTER 2021-09-25 02:29 | Outpatient (CLI) | payer OTHER, SELFPAY ==
[2021-09-25 15:06] LABS: Hemoglobin A1C 5.8 % (<5.7)
[2021-09-25 16:28] LABS: COMMENT (LAB VIEW ONLY) 60.01 mg/dL; Microalb ug/mg Crea 13.8 ug/mg Cr
[2021-09-25 16:39] LABS: ALT 77 U/L (16-63); AST 45 U/L (15-37); Alkaline Phosphatase 103 U/L (46-116); Anion Gap 11.3 mmol/L (3-11); BUN 13 mg/dL (7-18); CO2 27.7 mmol/L (21.0-32.0); Chloride 103 mmol/L (98-107); Glucose 136 mg/dL (74-106); Potassium 3.8 mmol/L (3.5-5.1); Sodium 142 mmol/L (136-145); Total Protein 8.3 g/dL (6.4-8.2); Uric Acid 5.6 mg/dL (3.5-7.2)
[2021-09-25 16:51] LABS: Calculated LDL 28 mg/dL (<100); Cholesterol 142 mg/dL (<200); HDL Cholesterol 39 mg/dL (40-60); Triglyceride 377 mg/dL (<150)
[2021-09-26 10:28] LABS: HIV-1/2 Ag & Ab Screen Negative (Negative)
[2021-09-26 10:35] LABS: Hepatitis C Ab w Rflx HCV PCR Negative (Negative)
== END 2021-09-25 02:30 | disposition home or self-care (01) ==
LOC: LBO 02:29
PROVIDERS: PCP Family Medicine; Visit Provider Family Medicine
DX: E11.9 Type 2 diabetes mellitus without complications; Z12.5 Encounter for screening for malignant neoplasm of prostate; M10.9 Gout, unspecified; Z11.4 Encounter for screening for human immunodeficiency virus [HIV]; Z11.59 Encounter for screening for other viral diseases
CPT/HCPCS: 36415; 80053; 80061; 84153; 86803; 87389; 82043; 82570; 83036; 84550

== ENCOUNTER 2022-04-01 02:50 | Outpatient (CLI) | payer OTHER, SELFPAY ==
[2022-04-01 13:16] LABS: ALT 102 U/L (16-63); AST 62 U/L (15-37); Albumin 3.7 g/dL (3.4-5.0); Alkaline Phosphatase 82 U/L (46-116); BUN 13 mg/dL (7-18); Bilirubin, Total 0.8 mg/dL (0.2-1.0); Calcium 8.6 mg/dL (8.5-10.1); Chloride 107 mmol/L (98-107); Glucose 144 mg/dL (74-106); Sodium 142 mmol/L (136-145); Total Protein 7.1 g/dL (6.4-8.2)
[2022-04-02 18:05] LABS: Hemoglobin A1C 6.1 % (<5.7)
== END 2022-04-01 02:51 | disposition home or self-care (01) ==
LOC: LOS 02:51
PROVIDERS: PCP Family Medicine; Visit Provider Family Medicine
DX: Z00.00 Encounter for general adult medical examination without abnormal findings (principal); E11.9 Type 2 diabetes mellitus without complications; I10 Essential (primary) hypertension; R97.20 Elevated prostate specific antigen [PSA]
CPT/HCPCS: 36415; 80053; 83036; 84154

== ENCOUNTER 2022-06-20 01:00 | Outpatient (CLI) | payer OTHER, SELFPAY ==
[2022-06-20 13:02] LABS: BUN 16 mg/dL (7-18); CREATININE 1.1 mg/dL (0.70-1.30); Calcium 8.9 mg/dL (8.5-10.1); Chloride 103 mmol/L (98-107); Glucose 180 mg/dL (74-106); NT-proBNP 10 pg/mL (<300); Potassium 4.1 mmol/L (3.5-5.1); Sodium 140 mmol/L (136-145)
== END 2022-06-20 01:01 | disposition home or self-care (01) ==
LOC: LOS 01:00
PROVIDERS: Internal Medicine Cardiovascular Disease; PCP Nurse Practitioner; Visit Provider Anesthesiology Pain Medicine
DX: I44.30 Unspecified atrioventricular block (principal); I10 Essential (primary) hypertension; Z95.0 Presence of cardiac pacemaker
CPT/HCPCS: 36415; 80048; 83880

== ENCOUNTER 2022-07-24 18:58 | Outpatient (REF) | payer OTHER, SELFPAY ==
[2022-07-24 21:05] LABS: Abs Immature Grans 0.03 10^3/uL (0.0-0.06); Absolute Basophil Count 0.05 10^3/uL (0.0-0.2); Absolute Eosinophil Count 0.23 10^3/uL (0.0-0.7); Absolute Lymphocyte Count 2.13 10^3/uL (1.2-3.4); Absolute Monocyte Count 0.58 10^3/uL (0.1-0.8); Absolute Neutrophil Count 4.73 10^3/uL (1.2-6.7); Basophils % 0.6; HCT 41.4 % (40.0-50.0); HGB 13.4 g/dL (13.5-17.5); Immature Grans % 0.4; Lymphocytes % 27.5; MCH 31.7 pg (27.0-33.0); MCHC 32.4 % (32.0-36.0); MCV 98 fL (80-95); MPV 11.7 fL (8.0-11.0); Monocytes % 7.5; Platelet Count 201 10^3/uL (130-400); RBC 4.23 10^6/uL (4.36-5.78); RDW 14.1 % (11.8-14.1); RDW-SD 50.3 fL; WBC 7.75 10^3/uL (4.4-10.8)
[2022-07-24 21:14] LABS: ALT 107 U/L (16-63); AST 64 U/L (15-37); Albumin 3.9 g/dL (3.4-5.0); Alkaline Phosphatase 83 U/L (46-116); BUN 14 mg/dL (7-18); Bilirubin, Total 0.9 mg/dL (0.2-1.0); Calcium 9.1 mg/dL (8.5-10.1); Chloride 102 mmol/L (98-107); Glucose 103 mg/dL (74-106); Potassium 3.5 mmol/L (3.5-5.1); Sodium 141 mmol/L (136-145); Total Protein 7.8 g/dL (6.4-8.2)
== END 2022-07-24 18:59 | disposition home or self-care (01) ==
LOC: LBN 18:58
PROVIDERS: PCP Nurse Practitioner; Visit Provider Nurse Practitioner Family
DX: R10.9 Unspecified abdominal pain (principal)
CPT/HCPCS: 80053; 85025

== ENCOUNTER 2022-09-18 03:21 | Outpatient (CLI) | payer OTHER, SELFPAY ==
[2022-09-18 09:13] LABS: Abs Immature Grans 0.02 10^3/uL (0.0-0.06); Absolute Basophil Count 0.05 10^3/uL (0.0-0.2); Absolute Eosinophil Count 0.19 10^3/uL (0.0-0.7); Absolute Lymphocyte Count 1.61 10^3/uL (1.2-3.4); Absolute Monocyte Count 0.51 10^3/uL (0.1-0.8); Absolute Neutrophil Count 4.26 10^3/uL (1.2-6.7); Basophils % 0.8; Eosinophils % 2.9; HGB 13.9 g/dL (13.5-17.5); Immature Grans % 0.3; Lymphocytes % 24.2; MCH 32.2 pg (27.0-33.0); MCHC 33.1 % (32.0-36.0); MCV 97 fL (80-95); MPV 10.4 fL (8.0-11.0); Monocytes % 7.7; Neutrophils % 64.1; Platelet Count 191 10^3/uL (130-400); RBC 4.32 10^6/uL (4.36-5.78); RDW 14.1 % (11.8-14.1); RDW-SD 50.6 fL; WBC 6.64 10^3/uL (4.4-10.8)
[2022-09-18 09:36] LABS: Hemoglobin A1C 6.9 % (<5.7)
[2022-09-18 10:18] LABS: ALT 90 U/L (16-63); AST 65 U/L (15-37); Alkaline Phosphatase 68 U/L (46-116); Anion Gap 7.3 mmol/L (3-11); BUN 15 mg/dL (7-18); Bilirubin, Total 1.1 mg/dL (0.2-1.0); CO2 30.7 mmol/L (21.0-32.0); Calcium 9.3 mg/dL (8.5-10.1); Calculated LDL 44 mg/dL (<100); Chloride 102 mmol/L (98-107); Cholesterol 134 mg/dL (<200); Ferritin 329 ng/mL (26-388); Glucose 144 mg/dL (74-106); HDL Cholesterol 38 mg/dL (40-60); Potassium 3.8 mmol/L (3.5-5.1); Sodium 140 mmol/L (136-145); TSH 2.17 uIU/mL (0.36-3.74); Total Protein 8.2 g/dL (6.4-8.2); Triglyceride 261 mg/dL (<150); Vitamin B12 394 pg/mL (193-986)
[2022-09-18 11:02] LABS: Vitamin D 25 Total 15.9 ng/mL (30-100)
== END 2022-09-18 03:22 | disposition home or self-care (01) ==
PROVIDERS: PCP Nurse Practitioner Family; Visit Provider Surgery
DX: E66.01 Morbid (severe) obesity due to excess calories (principal); K76.0 Fatty (change of) liver, not elsewhere classified; E11.9 Type 2 diabetes mellitus without complications; E78.5 Hyperlipidemia, unspecified
CPT/HCPCS: 36415; 80053; 80061; 82306; 82607; 82728; 83036; 84443; 85025

== ENCOUNTER 2023-08-21 19:55 | Outpatient (CLI) | payer OTHER, SELFPAY ==
[2023-08-21 13:21] LABS: Abs Immature Grans 0.03 10^3/uL (0.0-0.06); Absolute Basophil Count 0.06 10^3/uL (0.0-0.2); Absolute Eosinophil Count 0.16 10^3/uL (0.0-0.7); Absolute Lymphocyte Count 2.05 10^3/uL (1.2-3.4); Absolute Monocyte Count 0.49 10^3/uL (0.1-0.8); Absolute Neutrophil Count 5.03 10^3/uL (1.2-6.7); Basophils % 0.8; HCT 44.1 % (40.0-50.0); HGB 14.6 g/dL (13.5-17.5); Immature Grans % 0.4; Lymphocytes % 26.2; MCH 31.9 pg (27.0-33.0); MCHC 33.1 % (32.0-36.0); MCV 97 fL (80-95); MPV 10.8 fL (8.0-11.0); Monocytes % 6.3; Neutrophils % 64.3; Platelet Count 193 10^3/uL (130-400); RBC 4.57 10^6/uL (4.36-5.78); RDW 13.6 % (11.8-14.1); WBC 7.82 10^3/uL (4.4-10.8)
[2023-08-21 13:57] LABS: ALT 80 U/L (16-63); AST 49 U/L (15-37); Albumin 3.8 g/dL (3.4-5.0); Alkaline Phosphatase 90 U/L (46-116); Anion Gap 12.9 mmol/L (3-11); BUN 13 mg/dL (7-18); CO2 24.1 mmol/L (21.0-32.0); Calcium 9.2 mg/dL (8.5-10.1); Chloride 104 mmol/L (98-107); Estimated GFR 89.44 (mL/min/1.73m2); Ferritin 267 ng/mL (26-388); Glucose 109 mg/dL (74-106); Potassium 3.7 mmol/L (3.5-5.1); Sodium 141 mmol/L (136-145); TSH (W/Ref FT4) 1.82 uIU/mL (0.36-3.74)
[2023-08-21 14:31] LABS: Vitamin D 25 Total 16.8 ng/mL (30-100)
== END 2023-08-21 19:56 | disposition home or self-care (01) ==
LOC: LBO 19:55
PROVIDERS: PCP Nurse Practitioner Family; Visit Provider Nurse Practitioner Family
DX: R53.83 Other fatigue (principal)
CPT/HCPCS: 36415; 80053; 82306; 82728; 84443; 85025

== ENCOUNTER 2023-11-27 20:57 | Outpatient (REF) | payer OTHER, SELFPAY | END 2023-11-27 20:58 | disposition home or self-care (01) | LOC: LBN 20:57 | PROVIDERS: PCP Nurse Practitioner Family; Visit Provider Physician Assistant | DX: N39.0 Urinary tract infection, site not specified (principal); R82.89 Other abnormal findings on cytological and histological examination of urine | CPT/HCPCS: 87077; 87086; 87186 ==

== ENCOUNTER 2024-07-01 01:49 | Outpatient (CLI) | payer OTHER, SELFPAY ==
[2024-07-01 14:22] LABS: Abs Immature Grans 0.02 10^3/uL (0.0-0.06); Absolute Basophil Count 0.05 10^3/uL (0.0-0.2); Absolute Eosinophil Count 0.15 10^3/uL (0.0-0.7); Absolute Lymphocyte Count 1.96 10^3/uL (1.2-3.4); Absolute Monocyte Count 0.57 10^3/uL (0.1-0.8); Absolute Neutrophil Count 4.63 10^3/uL (1.2-6.7); Basophils % 0.7 %; HCT 42.4 % (40.0-50.0); Immature Grans % 0.3 %; Lymphocytes % 26.6 %; MCH 32.4 pg (27.0-33.0); MCV 98 fL (80-95); MPV 10.8 fL (8.0-11.0); Monocytes % 7.7 %; Neutrophils % 62.7 %; Platelet Count 164 10^3/uL (130-400); RBC 4.32 10^6/uL (4.36-5.78); RDW 13.7 % (11.8-14.1); RDW-SD 49.4 fL; WBC 7.38 10^3/uL (4.4-10.8)
[2024-07-01 14:31] LABS: Hemoglobin A1C 5.4 % (<5.7)
[2024-07-01 14:57] LABS: Iron 62 ug/dL (65-175); Total Iron Binding Capacity 384 ug/dL (250-450); Transferrin Sat 16 % (20-55)
[2024-07-01 15:23] LABS: Anion Gap 10.7 mmol/L (3-11); BUN 14 mg/dL (7-18); CO2 24.3 mmol/L (21.0-32.0); CREATININE 1.2 mg/dL (0.70-1.30); Calcium 8.4 mg/dL (8.5-10.1); Calculated LDL 77 mg/dL (<100); Chloride 105 mmol/L (98-107); Cholesterol 189 mg/dL (<200); Estimated GFR 71.42 (mL/min/1.73m2); Ferritin 54 ng/mL (26-388); Glucose 123 mg/dL (74-106); HDL Cholesterol 41 mg/dL (40-60); Potassium 3.6 mmol/L (3.5-5.1); Sodium 140 mmol/L (136-145); Triglyceride 358 mg/dL (<150); Vitamin B12 249 pg/mL (193-986)
== END 2024-07-01 01:50 | disposition home or self-care (01) ==
PROVIDERS: PCP Nurse Practitioner Family; Visit Provider Family Medicine
DX: Z00.00 Encounter for general adult medical examination without abnormal findings (principal); E11.9 Type 2 diabetes mellitus without complications; I15.2 Hypertension secondary to endocrine disorders; K08.89 Other specified disorders of teeth and supporting structures; G62.9 Polyneuropathy, unspecified
CPT/HCPCS: 36415; 80048; 80061; 82607; 82728; 83036; 83540; 83550; 85025

== ENCOUNTER 2024-09-08 02:57 | Outpatient (CLI) | payer OTHER, SELFPAY ==
--- NOTE | 2024-09-08 06:30 | DI.RAD_ITS ---
Exam(s) XR FOOT RT COMPLETE EXAM: XR FOOT RT COMPLETE CLINICAL HISTORY: Right foot pain,m79.671. TECHNIQUE: 2D digital imaging was performed of the right foot. Three images were obtained. AP, obl ique and lateral views were obtained. COMPARISON: CR XR TOE RT GREAT from 11/23/2020 FINDINGS: BONES: No acute fracture is present. No bony destructive lesion is seen. There is an osseous density at the dorsal aspect of the base of the distal phalanx of the great toe seen on the lateral view. Th is was not present on the prior examination. This may represent an acute fracture. Please correlate clinically. JOINTS: No dislocation present. The joint spaces are well maintained. SOFT TISSUE: There is a well corticated osseous density at the medial aspect of the base of the proxi mal phalanx of the 5th toe which appears old. IMPRESSION: Osseous density at the dorsum of the base of the distal phalanx of the great toe seen only on the lat eral view. Acute or chronic fracture fragment should be considered. Please correlate with the patie nt's clinical history. A CT scan may be considered for further characterization. DATA REPOSITORY: RADIATION DOSE DELIVERED:
--- NOTE | 2024-09-08 08:20 | DI.RAD_ITS ---
Exam(s) XR FOOT LT COMPLETE EXAM: XR FOOT LT COMPLETE CLINICAL HISTORY: Left foot pain,m79.672. TECHNIQUE: 2D digital imaging was performed of the left foot. Three images were obtained. AP, obli que and lateral views were obtained. COMPARISON: CR LEFT FOOT COMPLETE from 05/06/2008 FINDINGS: BONES: No acute fracture is present. No bony destructive lesion is seen. 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 JOINTS: No dislocation present. The joint spaces are well maintained. SOFT TISSUE: There is a 3 mm linear radiodensity in the soft tissues at the tip of the great toe. IMPRESSION: 3 mm foreign body in the soft tissues at the distal aspect of the great toe. No soft tissue gas is p resent. DATA REPOSITORY: RADIATION DOSE DELIVERED:
== END 2024-09-08 03:17 ==
LOC: DI 02:57
PROVIDERS: PCP Nurse Practitioner Family; Visit Provider Podiatrist
DX: S90.452A Superficial foreign body, left great toe, initial encounter (principal); M79.671 Pain in right foot; X58.XXXA Exposure to other specified factors, initial encounter
CPT/HCPCS: 73630

== ENCOUNTER 2024-11-06 12:35 | Emergency (ER) | payer OTHER, SELFPAY ==
[2024-11-06 12:37] VITALS: BP 171/84; PULSE 75; RESP 15; TEMP 36.7; O2SAT 96
[2024-11-06 13:03] VITALS: BP 171/84; PULSE 75; RESP 15; TEMP 36.7; O2SAT 96
--- NOTE | 2024-11-06 13:03 | ED.GENADUL_ITS ---
Discharge Plan Disposition Patient Disposition: Home Condition: Stable Discharge Details Clinical Impression: Dental infection Primary Care Provider: Alyssia Pardo ED Provider: Bashir Steele Home Meds and New Rx's Prescriptions: Continued omega-3 fatty acids [Fish Oil Concentrate] 1,000 mg capsule 1,000 mg PO DAILY aspirin [Adult Aspirin Regimen] 81 mg tablet,delayed release (DR/EC) 81 mg PO DAILY ferrous sulfate 325 mg (65 mg iron) tablet 325 mg PO QDAY Qty: 90 3RF Rx Instructions: Take 1 tablet once a day with your vitamin c furosemide 40 mg tablet 40 mg PO .QD Patient Comments: Decreased by Cardiology 07/03/24 (Dr. Polanco , [facility] carvedilol [Coreg] 12.5 mg tablet 6.25 mg PO BID Mounjaro 15 mg/0.5 mL pen injector 15 mg subcut QWEEK valsartan 160 mg tablet 160 mg PO DAILY Qty: 90 3RF fluticasone propionate 50 mcg/actuation spray,suspension 50 mcg NS DAILY Qty: 3 4RF allopurinol 300 mg tablet 300 mg PO DAILY Qty: 90 3RF pantoprazole 40 mg tablet,delayed release (DR/EC) See Rx Instructions .ROUTE .COMPLEX Qty: 90 3RF Dose Instruction: TAKE 1 TABLET BY MOUTH DAILY Rx Instructions: TAKE 1 TABLET BY MOUTH DAILY sildenafil 50 mg tablet 50 mg PO DAILY PRN (Reason: sexual activity) Qty: 30 11RF Rx Instructions: administer 30 minutes to 4 hours before activity magnesium 500 mg tablet 500 mg PO DAILY multivitamin 1 EACH capsule 1 tab PO DAILY No Action mecobalamin (vitamin B12) 1,000 mcg tablet,chewable 1,000 mcg PO DAILY cholecalciferol (vitamin D3) 25 mcg (1,000 unit) tablet 25 mcg PO DAILY Discharge Instructions Instructions: Hydrocodone and Acetaminophen, Dental Pain ED Additional Instructions: You were seen in the emergency department for your continued dental infection and pain. Sent you home with a to go pack of hydrocodone. Please note this has 325 mg of acetaminophen and he must factor that into your further dosing of therapeutic Tylenol and ibuprofen, please use therapeutic dosing of Tylenol (acetamenophen) & Advil (ibuprofen) in an alternating fashion as follows: Take 1000mg of Tylenol every 6 hours without missing doses- that is 4 times per day. [place] in between the Tylenol dosings, take 400-600mg of Advil also on a 6 hour schedule, that is also 4 times per day. The daily maximum dosing of Tylenol is 4000mg, and the daily maximum dosing of Advil is 2400mg. This is safe to do for weeks. Please note that some common cold medications & prescription pain medications may contain acetamenophen and you need to read OTC drug labels and factor that in to maximum daily dosings. Please give it a couple more days of the amoxicillin to begin to take effect on the infection-please follow-up with dentist for definitive management, please return to the ER for reduced gentle range of motion or severe vocal changes or excessive drooling or severe neck stiffness. Referrals: Alyssia Pardo NP [Primary Care Provider] - Discharge Data Discharge Date/Time-TO BE ENTERED AT DEPARTURE: 11/06/24 13:59 HPI General Date/Time Provider Initiated Documentation: 11/06/24 12:48 . HPI Narrative: 54 year-old male presents to ED today by POV/ambulating with a chief complaint of L lower jaw pain, on amoxicillin by dentist for this dental infection- has taken one day of amoxicillin without improvement with onset for the past few days- patient feels some tingling in the anterior L canine area and his dentist urged him to present to ED for IV antibiotics. Quality described as tingling, no radiation to trismus, vocal changes, excessive drooling, inability to swallow, neck pain/swelling. Severity is described as mild to moderate. Palliating factors include Tylenol/ibuprofen/amox as directed. Provoking factors include nothing specific. Patient not anticoagulated. Related Data Home Medications ?Medication ?Instructions ?Recorded ?Confirmed multivitamin 1 tab PO DAILY 04/12/18 11/08/24 omega-3 fatty acids 1,000 mg 1,000 mg PO DAILY 10/19/18 11/08/24 capsule (Fish Oil Concentrate) valsartan 160 mg tablet 160 mg PO DAILY #90 tabs 12/27/18 11/08/24 aspirin 81 mg tablet,delayed 81 mg PO DAILY 06/29/19 11/08/24 release (Adult Aspirin Regimen) fluticasone propionate 50 50 mcg NS DAILY ##3 02/08/20 11/08/24 mcg/actuation nasal spray,suspension magnesium 500 mg tablet 500 mg PO DAILY 10/04/21 11/08/24 tirzepatide 15 mg/0.5 mL 15 mg subcut QWEEK 08/20/23 11/08/24 subcutaneous pen injector (Perri) carvedilol 12.5 mg tablet (Coreg) 6.25 mg PO BID 10/29/23 11/08/24 allopurinol 300 mg tablet 300 mg PO DAILY #90 tabs 08/25/24 11/08/24 pantoprazole 40 mg tablet,delayed See Rx Instructions .Route 08/25/24 11/08/24 release .COMPLEX #90 tabs sildenafil 50 mg tablet 50 mg PO DAILY PRN sexual activity 08/25/24 11/08/24 #30 tabs ferrous sulfate 325 mg (65 mg 325 mg PO QDAY #90 tabs 10/31/24 11/08/24 iron) tablet furosemide 40 mg tablet 40 mg PO .QD 10/31/24 11/08/24 cholecalciferol (vitamin D3) 25 25 mcg PO DAILY 11/08/24 11/08/24 mcg (1,000 unit) tablet mecobalamin (vitamin B12) 1,000 1,000 mcg PO DAILY 11/08/24 11/08/24 mcg chewable tablet Previous Rx's ?Medication ?Instructions ?Recorded valsartan 160 mg tablet 160 mg PO DAILY #90 tabs 12/27/18 fluticasone propionate 50 50 mcg NS DAILY ##3 02/08/20 mcg/actuation nasal spray,suspension allopurinol 300 mg tablet 300 mg PO DAILY #90 tabs 08/25/24 pantoprazole 40 mg tablet,delayed See Rx Instructions .Route 08/25/24 release .COMPLEX #90 tabs sildenafil 50 mg tablet 50 mg PO DAILY PRN sexual activity 08/25/24 #30 tabs ferrous sulfate 325 mg (65 mg 325 mg PO QDAY #90 tabs 10/31/24 iron) tablet Allergies Allergy/AdvReac Type Severity Reaction Status Date / Time lisinopril AdvReac Mild cough Verified 11/08/24 09:05 General Stated Complaint: DentalOral MARCO ANTONIO: 3 Review of Systems All systems reviewed & are unremarkable except as noted in HPI and below Exam Narrative Exam Narrative: GENERAL APPEARANCE: Well-nourished, non-toxic, awake and alert, atraumatic, no acute distress. SKIN: Warm, pink, dry, intact, without rashes/lesions/ulcerations. HEAD: Normocephalic, atraumatic, normal hair distribution for gender/age. EYES: Normal conjunctiva, no exudates on lids/lashes. ENT: Nares patent, no circumoral cyanosis, no facial swelling, no left anterior lower visible gingival abscess, no trismus, no severe dental decay, no neck swelling or submandibular lymphadenopathy, managing secretions well NECK: Supple, trachea midline, painless cervical ROM. LUNGS/CHEST: Non-labored respirations, normal A/P diameter, symmetrical expansion, no chest wall deformity HEART (CV/PV): No peripheral edema, no JVD. ABDOMEN: Soft, non-distended, no guarding. MSK: Normal ROM, no swelling/deformity to bilateral UEs or LEs, moving all extremities without weakness, no cyanosis, spine midline without tenderness, normal curvature. NEURO: Mental Status AAOx4 - alert to person, place, time, events No facial droop, no forehead involvement. Motor: No focal weakness - strength 5/5 in bilateral UEs and LEs, proximal and distal, symmetric. Sensory: sensation intact to light touch globally. Gait normal: patient ambulated without ataxia into ED room. PSYCH: euthymic, cooperative, pleasant, appropriate speech Course Vital Signs Vital signs: Vital Signs Temperature 36.7 C 11/06/24 12:37 Pulse 75 11/06/24 12:37 Respiratory Rate 15 11/06/24 12:37 Blood Pressure 171/84 H 11/06/24 12:37 Pulse Oximetry 96 11/06/24 12:37 Temperature 36.7 C 11/06/24 12:37 Pulse 75 11/06/24 12:37 Respiratory Rate 15 11/06/24 12:37 Blood Pressure 171/84 H 11/06/24 12:37 Blood Pressure Position Sitting 11/06/24 12:37 Pulse Oximetry 96 11/06/24 12:37 Oxygen Delivery Method Room Air 11/06/24 12:37 Oxygen Flow Rate 0 11/06/24 12:37 Medical Decision Making This dictation utilizes [id number] dictation software and may contain unedited grammatical errors. 54 year-old male presents to ED today by POV/ambulating with a chief complaint of L lower jaw pain, on amoxicillin by dentist for this dental infection- has taken one day of amoxicillin without improvement with onset for the past few days- patient feels some tingling in the anterior L canine area and his dentist urged him to present to ED for IV antibiotics. Quality described as tingling, no radiation to trismus, vocal changes, excessive drooling, inability to swallow, neck pain/swelling. Severity is described as mild to moderate. Palliating factors include Tylenol/ibuprofen/amox as directed. Provoking factors include nothing specific. Patients' medical history: Noncontributory. Family and social history: Noncontributory. Pertinent exam findings / vital signs include no visible gingival abscess, no trismus, managing secretions well, no submandibular lymphadenopathy or neck swelling or stiffness. Differential / pathologies of concern include dental infection. Diagnostic studies of: -None. Interventions of: -To go pack of hydrocodone. ED Course/Assessment/Plan: 54-year-old man presents with known dental infection, prescribed amoxicillin by dentist, reported he called the dentist and reported some tingling in the area isolated to the left lower canine area and the gums and lip, the dentist urged IV antibiotics for unknown reason. Do not suspect we need to load the patient as he has had 2 doses of amoxicillin and should be approaching therapeutic levels and p.o is equal to IV in this case, counseled the patient on therapeutic dose of Tylenol and ibuprofen and the need for definitive follow-up, strict return criteria for any signs of deep space infection. 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 Disposition of dental infection. Patient verbalized understanding of the plan and return to ED criteria and engaged in shared decision making. Medical Records Medical records reviewed: Yes I reviewed the patient's medical records. Quality:SDOH Health Related Social Needs: Health related social needs housing instability, house d, with risk of homelessness (Z59.811) [facility] All Active Problems Dental infection (Acute) Fatigue (Acute) Diabetes mellitus with neuropathy (Acute) Pain in right foot (Acute) Achilles tendon contracture, bilateral (Acute) Metatarsalgia, right foot (Acute) Neuropathy (Acute) Capsulitis (Acute) Angioedema (Acute) MUIR (nonalcoholic steatohepatitis) (Acute) 2020-mildly elevated liver function test, CT 2020 consistent with fatty liver, 04/2022-fib 4-1.58 Osteoarthrosis, hip (Acute) 2020- left hip Seroma (Acute) 2020-status post ventral and umbilical hernia repair at [facility]-midline above umbilicus Elevated PSA (Acute) 09/2021- PSA-6.0 04/2022- Psa-0.49 Elevated liver enzymes (Acute) 09/2021, mildly elevated transaminases , CT 2020- Fatty Liver 03/2022, fib4-1.58 Pacemaker (Acute) 09/2021, [facility] cardiology Gout (Chronic) Atrioventricular block, Mobitz type 2 (Acute) 09/2021, Mobitz type II, followed by cardiology at [facility] DM type 2 (diabetes mellitus, type 2) (Acute) LBBB (left bundle branch block) (Chronic) Cardiomyopathy (Chronic) last echo 08/29/2021; LVEF 45-50%, septal wall motion abnormality c/w IVCD, normal RV function/size, no hemodynamically significant valvular abnormalities Anxiety (Chronic) Tubular adenoma of colon (Acute 04/12/18) due 2022 Obesity (Acute) Hyperlipidemia (Acute) History of hyperlipidemia HTN (hypertension) (Chronic 09/16/17) Gastroesophageal reflux disease with esophagitis (Acute) Depression (Acute 03/03/16) situational mood/grief with family Allergic rhinitis (Acute 08/11/14) Medical History Smoker QUIT 2003 Hiatal hernia Hypertension GERD (gastroesophageal reflux disease) Obesity, Class III, BMI 40-49.9 (morbid obesity) Depression (emotion) Surgical History History of hip replacement bi-lat [facility]; R 10/2023 and L 04/2024 Tonsillectomy (~1999) HERNIA REPAIR RIGHT; AGE 3 MONTHS Colonoscopy - MAC (04/12/18) Family History Mother , age 73 No problems noted. Father , age 73 Diabetes Essential hypertension Stroke Maternal Grandfather , AGE 67 Heart disease Alcohol abuse Paternal Grandfather , AGE 91 Alcohol abuse Heart disease Maternal Grandmother , AGE 72 Diabetes Heart disease Paternal Grandmother Diabetes Essential hypertension Heart disease Brother Anxiety Depression Daughter Anxiety Depression Social History Smoking/Tobacco Use Status: Former Tobacco Use tobacco type: cigarettes Quit Date: 11/02/04 Tobacco: How many years used: 24 Quit status: has quit before Second Hand Exposure: No Smoking risk assessment performed?: Yes Alcohol Intake: current Alcohol Intake frequency: a few times a week Alcohol type: hard liquor Drug use: Never Substance use type: does not use Caregiver/Support person: No Household members: spouse and other Details: 2 step-grandchildren Communication Needs: None Do you need help understanding health information?: Rarely 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 Pets and animals: No Sexually active: Yes Do you think of yourself as: straight/heterosexual Current gender identity: male and decline to answer What is your relationship status?: How often do you talk on the phone with friends or family?: twice per week How often do you get together with friends or relatives?: never How often do you attend adventist or orthodoxy services?: 1-3 times per year Do you belong to any clubs or organized social groups?: no Panel score (0-1 are the most socially isolated patients): 1 What type of physical activity do you participate in: none Frequency: does not exercise Silke/Church: [employer] Special silke needs: No Seatbelt use: always Helmet use: Yes Helmet use: always 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
[2024-11-06] MEDS: HYDROcodone 5/Acetaminophen 325 TAB PO (13:27)
[2024-11-06 13:59] VITALS: BP 143/91; PULSE 70; RESP 20; O2SAT 94
== END 2024-11-06 13:59 | disposition home or self-care (01) ==
PROVIDERS: Emergency Provider Physician Assistant; PCP Nurse Practitioner Family
DX: R68.84 Jaw pain (principal); K04.7 Periapical abscess without sinus
CPT/HCPCS: 99282; 99283

== ENCOUNTER 2024-11-07 04:10 | Outpatient (CLI) | payer OTHER, SELFPAY ==
[2024-11-07 15:04] LABS: Uric Acid 4.8 mg/dL (3.5-7.2)
[2024-11-07 15:47] LABS: Vitamin B12 765 pg/mL (193-986)
[2024-11-12 15:24] LABS: Testosterone, Free 4.69 ng/dL (3.87-14.7); Testosterone, Total 143 ng/dL (240-950)
== END 2024-11-07 04:11 | disposition home or self-care (01) ==
LOC: LBO 04:11
PROVIDERS: Podiatrist; PCP Nurse Practitioner Family; Visit Provider Nurse Practitioner Family
DX: E11.40 Type 2 diabetes mellitus with diabetic neuropathy, unspecified (principal); R79.89 Other specified abnormal findings of blood chemistry; M10.9 Gout, unspecified; R53.83 Other fatigue
CPT/HCPCS: 36415; 84402; 84403; 82607; 84550

== ENCOUNTER 2025-01-23 11:29 | Outpatient (CLI) | payer OTHER, SELFPAY ==
--- NOTE | 2025-01-23 11:30 | RT.EKG_ITS ---
APPROVED REPORT Exam: Resting ECG Reason for Exam: PALPITATIONS Patient Location: O HR:76 bpm ECG Measurements Heart Rate 76 AXIS HI 198 P -32 QRSd 114 QRS 12 QT 395 T 66 QTc 445 Conclusion Atrial-sensed ventricular-paced complexes...other complexes also detected No further analysis attempted due to paced rhythm
== END 2025-01-23 11:30 | disposition home or self-care (01) ==
PROVIDERS: PCP Nurse Practitioner Family; Visit Provider Internal Medicine Cardiovascular Disease
DX: R00.2 Palpitations (principal)
CPT/HCPCS: 93005; 93010

== ENCOUNTER 2025-02-06 14:18 | Outpatient (REF) | payer OTHER, SELFPAY | END 2025-02-06 14:19 | disposition home or self-care (01) | LOC: LBN 14:18 | PROVIDERS: PCP Nurse Practitioner Family; Visit Provider Physician Assistant | DX: J02.9 Acute pharyngitis, unspecified (principal); R68.89 Other general symptoms and signs; R21 Rash and other nonspecific skin eruption | CPT/HCPCS: 80053; 80061; 87070 ==

== ENCOUNTER 2025-02-13 00:52 | Outpatient (CLI) | payer OTHER, SELFPAY ==
--- NOTE | 2025-02-13 06:30 | DI.NM_ITS ---
APPROVED REPORT Exam: Pharmacologic Patient Location: Out-Patient Room/Bed: Stress Nurse: Aniyah Gomez RN Ordering Provider:GUANAKO PRINGLE, Contact Number: [phone] BMI: 41.81 Baseline Rhythm: 100% Paced Rhythm. Indications: Intermittent Chest Pain. Medical History Medical History: Smoker; HTN; HLD; GERD; Obesity Class 3; Depression; Neuropathy; MUIR; Pacemaker; AV Block Type 2; Diabetes Mellitus Type 2; LBBB; Cardiomyopathy; Anxiety; per pt., diagnosis of Heart F ailure. Cardiac Medications: Allopurinol; Aspirin; Carvedilol; Furosemide; Magnesium; Pantoprazole; Sildenafi l; Mounjaro; Valsartan. Allergies: Lisinopril. Cardiac Risk Factors: Family Hx; HTN; HLD; Diabetes Mellitus Type 2; Smoker; Obesity. Previous Cardiac Procedures: Pacemaker Placement 09/2021. Pretest Chest Pain Characteristics: None. Exercise History: Sedentary. Physical Disabilities: None. Lung Sounds: Clear bilaterally throughout, anterior and posterior. Heart Sounds: S1 and S2 auscultated. Stress Test Details Test: Pharmacologic stress testing performed using 0.4 mg of regadenoson per 5 mL given IV over 10 s econds. Reason for pharmacologic stress test: LBBB; Pacemaker.. Nuclear Acquisition: Rest Tc-99m/Stress Tc-99m 1 day Rest Isotope: Tc-99m Sestamibi. Dose: 11.0 Date: 02/13/2025 Injection Time: 0900 Stress Isotope: Tc-99m Sestamibi. Dose: 36.0 Date: 02/13/2025 Injection Time: 1030 HR Resting HR Supine: 82 bpm Max Heart Rate (APMHR): 164 bpm Target HR (85% APMHR): 139 bpm Max HR Achieved: 80 bpm % of APMHR: 49 Recovery HR: 71 bpm BP Resting BP Supine: 120/70 mmHg Max BP: 120/70 mmHg Recovery BP: 118/66 mmHg ECG Resting EC% Paced Rhythm. Ectopy: Uncaptured/Captured PVC's? Stress EC% Paced Rhythm. ST Change: Nondiagnostic low heart rate; Nondiagnostic V-pacing or LBBB. Arrhythmia: Uncaptured/Captured PVC's? Recovery EC% Paced Rhythm. Recovery ST Change: Nondiagnostic low heart rate; Nondiagnostic V-pacing or LBBB. Recovery Arrhythmia: Uncaptured/Captured PVC's? Clinical Stress Symptoms: Dizziness; Heart Rate Racing; Nausea. Angina Score: None Rate Pressure Product: 9600 Stress ECG Conclusion 1. Electrocardiogram showed ventricular paced rhythm 2. Patient underwent testing using pharmacologic stress with regadenoson 3. Peak heart rate achieved was 49% of maximal predicted for age 4. The electrocardiographic portion of the test was nondiagnostic 5. See MPI report Stress Test Summary STAGE HR BP SpO2 Symptoms NOTES Supine 82 120/70 92 1 min post Lexiscan injection 80 118/60 94 Pt. c/o dizziness, heart rate racing, and nausea. 3 min post Lexiscan injection 76 108/68 95 Pt. states that symptoms are resolving. 6 min post Lexiscan injection 71 118/66 94 Pt. is asymptomatic. Pt. was conversing pleasantly with nursing staff upon leaving the Stress Lab. Pt. left ambulatory in no apparent distress. MPI Conclusion Myocardial perfusion is normal. There is no ischemia or evidence of prior infarction Calculated EF is 43%. Wall motion appears normal and overall systolic function also appears within t he range of normal
[2025-02-13] MEDS: Regadenoson 0.4 MG/5 ML SYR IVP (10:29)
== END 2025-02-13 01:12 ==
LOC: DI 00:52
PROVIDERS: PCP Nurse Practitioner Family; Visit Provider Internal Medicine Cardiovascular Disease
DX: R07.9 Chest pain, unspecified (principal)
CPT/HCPCS: 78452; 93017; J2785

== ENCOUNTER 2025-04-03 07:44 | Day surgery (SDC) | payer OTHER, SELFPAY ==
[2025-04-03 07:50] VITALS: BP 146/71; PULSE 75; RESP 17; TEMP 36.1; O2SAT 98
[2025-04-03] MEDS: Lactated Ringers 1,000 ML 80 ML IV (08:12)
--- NOTE | 2025-04-03 09:17 | W.SURGCON ---
Date of service: 04/03/25 Time of Service: 09:20 Assessment and Plan Assessment and plan (1) Encounter for screening colonoscopy: Status: Acute Assessment and plan: 54-year-old man due for screening colonoscopy. Rectal bleeding a chronic problem for him. Overall plan: Colonoscopy History of Present Illness Narrative: The patient is here for his colonoscopy. He has no complaints. On/off rectal bleeding is not new. History of polyps. Heart workup grossly unrevealing. PFSH All Active Problems (Updated 04/03/25 @ 09:36 by Guanaco Knight MD) Encounter for screening colonoscopy (Acute) Fatigue (Acute) Diabetes mellitus with neuropathy (Acute) Pain in right foot (Acute) Achilles tendon contracture, bilateral (Acute) Metatarsalgia, right foot (Acute) Neuropathy (Acute) Capsulitis (Acute) Angioedema (Acute) MUIR (nonalcoholic steatohepatitis) (Acute) 2020-mildly elevated liver function test, CT 2020 consistent with fatty liver, 04/2022-fib 4-1.58 Osteoarthrosis, hip (Acute) 2020- left hip Seroma (Acute) 2020-status post ventral and umbilical hernia repair at [facility]-midline above umbilicus Elevated PSA (Acute) 09/2021- PSA-6.0 04/2022- Psa-0.49 Elevated liver enzymes (Acute) 09/2021, mildly elevated transaminases , CT 2020- Fatty Liver 03/2022, fib4-1.58 Pacemaker (Acute) 09/2021, [facility] cardiology Gout (Chronic) Atrioventricular block, Mobitz type 2 (Acute) 09/2021, Mobitz type II, followed by cardiology at [facility] DM type 2 (diabetes mellitus, type 2) (Acute) LBBB (left bundle branch block) (Chronic) Cardiomyopathy (Chronic) last echo 08/29/2021; LVEF 45-50%, septal wall motion abnormality c/w IVCD, normal RV function/size, no hemodynamically significant valvular abnormalities Anxiety (Chronic) Tubular adenoma of colon (Acute 04/12/18) due 2022 Obesity (Acute) Hyperlipidemia (Acute) History of hyperlipidemia HTN (hypertension) (Chronic 09/16/17) Gastroesophageal reflux disease with esophagitis (Acute) Depression (Acute 03/03/16) situational mood/grief with family Allergic rhinitis (Acute 08/11/14) Medical History (Updated 04/03/25 @ 09:36 by Guanaco Knight MD) Congestive heart failure Smoker QUIT 2003 Hiatal hernia Hypertension GERD (gastroesophageal reflux disease) Obesity, Class III, BMI 40-49.9 (morbid obesity) Depression (emotion) Surgical History History of hip replacement bi-lat [facility]; R 10/2023 and L 04/2024 Tonsillectomy (~1999) HERNIA REPAIR RIGHT; AGE 3 MONTHS Colonoscopy - MAC (04/12/18) Family History Mother , age 73 No problems noted. Father , age 73 Diabetes Essential hypertension Stroke Maternal Grandfather , AGE 67 Heart disease Alcohol abuse Paternal Grandfather , AGE 91 Alcohol abuse Heart disease Maternal Grandmother , AGE 72 Diabetes Heart disease Paternal Grandmother Diabetes Essential hypertension Heart disease Brother Anxiety Depression Daughter Anxiety Depression Social History Smoking/Tobacco Use Status: Former Tobacco Use tobacco type: cigarettes Quit Date: 11/02/04 Tobacco: How many years used: 24 Quit status: has quit before Second Hand Exposure: No Smoking risk assessment performed?: Yes Alcohol Intake: current Alcohol Intake frequency: a few times a week Alcohol type: hard liquor Drug use: Never Substance use type: does not use Caregiver/Support person: No Household members: spouse and other Details: 2 step-grandchildren Housing: house Communication Needs: None Do you need help understanding health information?: Rarely 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 Pets and animals: No Sexually active: Yes Do you think of yourself as: straight/heterosexual Current gender identity: male and decline to answer What is your relationship status?: How often do you talk on the phone with friends or family?: twice per week How often do you get together with friends or relatives?: never How often do you attend scientology or moravian services?: 1-3 times per year Do you belong to any clubs or organized social groups?: no Panel score (0-1 are the most socially isolated patients): 1 What type of physical activity do you participate in: none Frequency: does not exercise Silke/Holiness: [employer] Special silke needs: No Seatbelt use: always Helmet use: Yes Helmet use: always 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 Good insight and understanding into condition. Chest: Non-labored breathing, no wheezing, no visible shortness of breath. Heart: Regular Results Last Vital Signs Temp 97.0 F L 04/03/25 07:50 Pulse 75 04/03/25 07:50 Resp 17 04/03/25 07:50 BP 146/71 H 04/03/25 07:50 Pulse Ox 98 04/03/25 07:50
--- NOTE | 2025-04-03 09:37 | ANES.PREOP_ITS ---
General Info Date of Service Date Performed: 04/03/25 Height: 6 ft 1 in Weight: 144.6 kg Body Mass Index (BMI): 42.0 Surgical Procedure: Operation Date: 04/03/25 09:20 Proposed Procedure Side Surgeon p Colonoscopy Guanaco Knight MD Actual Procedure Side Surgeon p Colonoscopy Not Applicable Guanaco Knight MD Meds Allergies and Home Medications Allergies Allergy/AdvReac Type Severity Reaction Status Date / Time lisinopril AdvReac Mild cough Verified 04/03/25 08:05 Home Medication ?Medication ?Instructions ?Recorded multivitamin 1 tab PO DAILY 04/12/18 omega-3 fatty acids 1,000 mg 1,000 mg PO DAILY 10/19/18 capsule (Fish Oil Concentrate) valsartan 160 mg tablet 160 mg PO DAILY #90 tabs 12/27/18 aspirin 81 mg tablet,delayed 81 mg PO DAILY 06/29/19 release (Adult Aspirin Regimen) fluticasone propionate 50 50 mcg NS DAILY ##3 02/08/20 mcg/actuation nasal spray,suspension magnesium 500 mg tablet 500 mg PO DAILY 10/04/21 tirzepatide 15 mg/0.5 mL 15 mg subcut QWEEK 08/20/23 subcutaneous pen injector (Mounjaro) carvedilol 12.5 mg tablet (Coreg) 6.25 mg PO BID 10/29/23 allopurinol 300 mg tablet 300 mg PO DAILY #90 tabs 08/25/24 pantoprazole 40 mg tablet,delayed See Rx Instructions .Route 08/25/24 release .COMPLEX #90 tabs sildenafil 50 mg tablet 50 mg PO DAILY PRN sexual activity 08/25/24 #30 tabs furosemide 40 mg tablet 40 mg PO .QD 10/31/24 cholecalciferol (vitamin D3) 25 25 mcg PO DAILY 11/08/24 mcg (1,000 unit) tablet mecobalamin (vitamin B12) 1,000 1,000 mcg PO DAILY 11/08/24 mcg chewable tablet ferrous sulfate 325 mg (65 mg 325 mg PO QDAY #90 tabs 01/30/25 iron) tablet miconazole nitrate 2 % topical 1 applic topical BID #15 grams 02/06/25 cream (Antifungal (miconazole)) bisacodyl 5 mg tablet,delayed 5 mg PO ONCE colonscopy bowel prep 02/16/25 release (Dulcolax (bisacodyl)) #4 tabs polyethylene glycol 3350 17 238 g PO ONCE colonoscopy prep 02/16/25 gram/dose oral powder #238 grams Current Visit Medications: Current Medications Generic Name Dose Route Start Last Admin Trade Name Benny PRN Reason Stop Dose Admin Ringer's Solution 1,000 mls @ 80 mls/hr 04/03/25 06:00 04/03/25 08:12 IV 04/03/25 23:59 80 mls/hr INFUSION KATLIN Administration IV Miscellaneous Supplies 1 each 04/03/25 06:00 Iv Access IV 04/03/25 23:59 DIRECTED KATLIN Sodium Chloride 0 ml 04/03/25 06:00 Normal Saline Flush 10 Ml Syr IV 04/03/25 23:59 PRN PRN Sodium Chloride 0 ml 04/03/25 06:00 Normal Saline 10 Ml Vial IJ 04/03/25 23:59 DIRECTED PRN Sterile Water 0 ml 04/03/25 06:00 Water,Injection,Sterile 10 Ml Vial IJ 04/03/25 23:59 DIRECTED PRN PFSH Active Problems Active Problems: Problem Status Onset Code Encounter for screening colonoscopy Acute Z12.11 Fatigue Acute R53.83 Diabetes mellitus with neuropathy Acute E11.40 Pain in right foot Acute M79.671 Achilles tendon contracture, bilateral Acute M67.01, M67.02 Metatarsalgia, right foot Acute M77.41 Neuropathy Acute G62.9 Capsulitis Acute M77.9 Angioedema Acute T78.3XXA MUIR (nonalcoholic steatohepatitis) Acute K75.81 Osteoarthrosis, hip Acute M16.9 Seroma Acute Elevated PSA Acute R97.20 Elevated liver enzymes Acute R74.8 Pacemaker Acute Z95.0 Gout Chronic M10.9 Atrioventricular block, Mobitz type 2 Acute I44.1 DM type 2 (diabetes mellitus, type 2) Acute E11.9 LBBB (left bundle branch block) Chronic I44.7 Cardiomyopathy Chronic I42.9 Anxiety Chronic F41.9 Tubular adenoma of colon Acute 04/12/18 D12.6 Obesity Acute E66.9 Hyperlipidemia Acute E78.5 HTN (hypertension) Chronic 09/16/17 I10 Gastroesophageal reflux disease with esophagitis Acute K21.0 Depression Acute 03/03/16 F32.9 Allergic rhinitis Acute 08/11/14 J30.9 Medical History Medical History (Updated 04/03/25 @ 09:36 by Guanaco Knight MD) Congestive heart failure Smoker QUIT 2003 Hiatal hernia Hypertension GERD (gastroesophageal reflux disease) Obesity, Class III, BMI 40-49.9 (morbid obesity) Depression (emotion) Surgical History Surgical History History of hip replacement [facility]; R 10/2023 and L 04/2024 Tonsillectomy (~2000) HERNIA REPAIR RIGHT; AGE 3 MONTHS Colonoscopy - [facility] (04/12/18) Tobacco Smoking/Tobacco Use Status: Former Tobacco Use Passive smoking exposure: No Second hand exposure: No Alcohol Alcohol Intake: current Alcohol intake frequency: a few times a week Alcohol type: hard liquor Substance Use Substance use: Never Substance use type: does not use Vital Signs and Lab Results Vital Signs Most Recent Vital Signs in EMR: Most Recent Vital Signs Temp Pulse Resp BP Pulse Ox 36.1 C L 75 17 146/71 H 98 04/03/25 07:50 04/03/25 07:50 04/03/25 07:50 04/03/25 07:50 04/03/25 07:50 Lab Results Blood Type / Crossmatch: No Data to Display Complete Blood Count: No Data to Display Complete Metabolic Panel: No Data to Display Liver Function Panel: No Data to Display Coagulation Panel: No Data to Display Cardiac Panel: No Data to Display Arterial Blood Gas: No Data to Display Venous Blood Gas: No Data to Display Pancreas Panel: No Data to Display Thyroid Panel: No Data to Display Infectious Disease: No Data to Display Blood Cultures: No Data to Display Toxicology Panel: No Data to Display Anesthesia Assessment and Plan Anesthesia History Personal History: Other Family History: No Family History of Anesthesia Complications Exercise Tolerance Exercise Tolerance: Metabolic Equivalents>4 Pertinent Negatives Pertinent Negatives: No Symptoms of GERD Cardiac & Pulmonary Exam Cardiac Exam: Normal S1/S2 Heart Sounds Pulmonary Exam: Clear Bilateral Breath Sounds Implantable Cardiac Device Does patient have a Pacemaker or an ICD?: Yes Device Manager Women:: Cap Thata Reason for Placement:: Cardiomyopathy and HB Date of Last Device Interrogation:: 12/22/24 Airway Exam Known Difficult Airway: No Mallampati Class: 2 Mouth Opening: Normal (> 3cm) Thyromental Distance: Greater than 3 cm Neck Range of Motion: Full ROM Neck Circumference: Thick Teeth Condition: Normal Dentition ASA Classification ASA Score: ASA 3 Emergency Case?: No NPO Status NPO Status: NPO Clears >2 hours, Solids >8 hours Anesthesia Plan Resuscitation Status: Full Code Anesthesia Technique: General Anesthesia Airway Planned: Natural Airway Monitors Used: Standard Monitors Preoperative Comments:: non-ischemic cardiomyopathy
[2025-04-03 09:38] VITALS: BMI 42.0
--- NOTE | 2025-04-03 09:38 | PDOC.DSDIS_ITS ---
Date of service: 04/03/25 Discharge Plan Disposition Patient Disposition: Home Condition: Good Discharge Details Attending Provider: Guanaco Knight Primary Care Provider: Alyssia Pardo Home Meds and New Rx's Prescriptions: No Action omega-3 fatty acids [Fish Oil Concentrate] 1,000 mg capsule 1,000 mg PO DAILY aspirin [Adult Aspirin Regimen] 81 mg tablet,delayed release (DR/EC) 81 mg PO DAILY furosemide 40 mg tablet 40 mg PO .QD Patient Comments: Decreased by Cardiology 07/03/24 (Dr. Polanco , [facility] [place] ferrous sulfate 325 mg (65 mg iron) tablet 325 mg PO QDAY Qty: 90 3RF Rx Instructions: Take 1 tablet once a day with your vitamin c mecobalamin (vitamin B12) 1,000 mcg tablet,chewable 1,000 mcg PO DAILY cholecalciferol (vitamin D3) 25 mcg (1,000 unit) tablet 25 mcg PO DAILY polyethylene glycol 3350 17 gram/dose powder 238 g PO ONCE Qty: 238 0RF Rx Instructions: take per colonoscopy instructions bisacodyl [Dulcolax (bisacodyl)] 5 mg tablet,delayed release (DR/EC) 5 mg PO ONCE Qty: 4 0RF Rx Instructions: take per colonoscopy instructions miconazole nitrate [Antifungal (miconazole)] 2 % cream 1 applic topical BID Qty: 15 0RF carvedilol [Coreg] 12.5 mg tablet 6.25 mg PO BID Mounjaro 15 mg/0.5 mL pen injector 15 mg subcut QWEEK valsartan 160 mg tablet 160 mg PO DAILY Qty: 90 3RF fluticasone propionate 50 mcg/actuation spray,suspension 50 mcg NS DAILY Qty: 3 4RF allopurinol 300 mg tablet 300 mg PO DAILY Qty: 90 3RF pantoprazole 40 mg tablet,delayed release (DR/EC) See Rx Instructions .ROUTE .COMPLEX Qty: 90 3RF Dose Instruction: TAKE 1 TABLET BY MOUTH DAILY Rx Instructions: TAKE 1 TABLET BY MOUTH DAILY sildenafil 50 mg tablet 50 mg PO DAILY PRN (Reason: sexual activity) Qty: 30 11RF Rx Instructions: administer 30 minutes to 4 hours before activity magnesium 500 mg tablet 500 mg PO DAILY multivitamin 1 EACH capsule 1 tab PO DAILY Discharge Instructions Additional Instructions: FINDINGS: A couple of small polyps are found today. Just like last time. They are nothing to worry about and this is why we do the procedure. We will call you in a couple of weeks to confirm the pathology and tell you when your next colonoscopy should be done. Probably in 5 years is my guess. Could be as soon as 3 years. You have some mild diverticular disease which is extremely common, benign and nothing needs to be done about it. You also have some benign, mild hemorrhoid disease which is also very common and nothing needs to be done about it. Stand Alone Forms: Anesthesia Discharge Inst., Colonoscopy Post Instructions, Umberto Atkins ([facility]) Activity:: Activity as Tolerated Diet:: As Tolerated Discharge Orders Discharge Orders: Discharge Order (Routine); Ordered 04/03/25 Ordered By: Guanaco Knight DS: Diagnosis Discharge Diagnosis (1) Encounter for screening colonoscopy: Status: Acute
--- NOTE | 2025-04-03 09:38 | W.COLOREPORT ---
Date of service: 04/03/25 Time of Service: 09:38 Colonoscopy Report Procedure Description: PROCEDURES PERFORMED: 1. Colonoscopy with hot snare polypectomy x2 PREOPERATIVE DIAGNOSIS: Surveillance colonoscopy, colon polyps POSTOPERATIVE DIAGNOSIS: Colorectal polyps, sigmoid diverticulosis, grade 1 internal hemorrhoids SURGEON: Brett Knight MD INDICATION FOR PROCEDURE: the patient is a 54-year-old man due for surveillance colonoscopy in setting of personal history of adenomatous polyps. Has mild, intermittent painless rectal bleeding. FINDINGS: Normal terminal ileum. Polyps: In the distal transverse/descending colon a 3-5 mm sessile polyp was removed with hot snare technique. In the sigmoid colon another 3-5 mm sessile polyp was removed with hot snare technique. There was moderate diverticular disease in the sigmoid colon. There is no stricture or active inflammation. Grade 1 internal hemorrhoids are present in the rectum. SURVEILLANCE interval/FOLLOW-UP: Repeat in 3-5 years pending path results on the polyps. SPECIMENS: Yes EBL: Minimal COMPLICATIONS: None QUALITY of prep: Excellent Procedure in detail: The patient gave written consent and was in agreement with the indications, the potential risks as well as the benefits of the procedure. They were taken to the endoscopy suite and laid in the left lateral decubitus position. A timeout was performed and anesthesia was administered which was tolerated well. I started the procedure. Digital rectal and visual examination was performed and grossly within normal limits. A well-lubricated flexible colonoscope was then introduced and passed without any notable difficulty all the way to the cecum identified by the ileocecal valve and the appendiceal orifice. The terminal ileum was briefly, superficially intubated and looked normal. The scope was then slowly withdrawn with the above-noted findings. The patient tolerated the procedure well and was taken to the PACU in hemodynamically stable condition.
--- NOTE | 2025-04-03 09:53 | BOWEL_PTH ---
PATIENT: Jeff Ballard JR LOC: [facility] U#:[id number] AGE/SX: 54/M ROOM: RE04/03/[address]: Guanaco Knight : 1970 BED: DIS: 04/03/2025 SPEC #: [id number] RECD: 04/03/25 12:57 STATUS: HUNTER RE #: [id number] EWA: 04/03/25 09:[address]: Guanaco Knight DEPT: Surgical Specimen RECD BY: Dianne Jeffries ENTERED: 04/03/25 12:58 SP TYPE: Bowel OTHR DR: Alyssia Pardo, WORK CHECKER Tissues: 1 - BIOPSY BOWEL 2 - BIOPSY BOWEL Procedures: GROSS AND MICRO LEVEL 4 Comments: [id number]
[2025-04-03 10:08] VITALS: BP 122/78; PULSE 71; RESP 16; TEMP 36.4; O2SAT 97
--- NOTE | 2025-04-03 10:15 | W.ANESPOSTOP ---
Postoperative Evaluation Date, Time and Location Date Performed: 04/03/25 Time Performed: 10:15 Patient Location: Day Surgery Unit Vital Signs Most Recent Imported Vital Signs: Most Recent Vital Signs Temp Pulse Resp BP Pulse Ox 36.4 C L 71 16 122/78 97 04/03/25 10:08 04/03/25 10:08 04/03/25 10:08 04/03/25 10:08 04/03/25 10:08 Pain Score Most Recent Pain Score: Most Recent Pain Score Pain Level 0 04/03/25 10:08 Assessment Mental Status: Awake (Alert & Oriented to Patient Baseline) Airway and Respiratory Function: Patent airway with normal (patient baseline) respiratory exam Cardiovascular Function: Hemodynamically Stable Hydration Status: Adequately Hydrated Nausea & Vomiting: No Nausea or Vomiting Pain: Pt. Denies Any Pain Peripheral Nerve Block: Patient did not receive a nerve block
[2025-04-03 10:40] VITALS: BP 125/77; PULSE 69; RESP 16; TEMP 36.6; O2SAT 98
== END 2025-04-03 10:58 | disposition home or self-care (01) ==
PROVIDERS: PCP Nurse Practitioner Family; Visit Provider Student in an Organized Health Care Education/Training Program
PROC: 0DJD8ZZ Inspection of Lower Intestinal Tract, Via Natural or Artificial Opening Endoscopic (ICD-10-PCS; CPT 45378; principal; 2025-04-03 09:15)
DX: Z12.11 Encounter for screening for malignant neoplasm of colon (principal); K57.30 Diverticulosis of large intestine without perforation or abscess without bleeding; K64.0 First degree hemorrhoids; D12.3 Benign neoplasm of transverse colon; D12.5 Benign neoplasm of sigmoid colon
CPT/HCPCS: 45385; 88305; J2003; J2704